=== PATIENT | male | born 1980 | race Caucasian/White ===

== ENCOUNTER 2017-07-23 16:33 | Observation (INO) | payer MEDICAID ==
[2017-07-23] MEDS ORDERED: MORPHINE SULFATE 2 MG/ML SYRINGE IV STA (16:41)
[2017-07-23] MEDS ORDERED: SODIUM CHLORIDE 0.9% 500 ML IV STA ×2 (16:41→18:15)
[2017-07-23] MEDS ORDERED: SODIUM CHLORIDE 0.9% 1,000 ML IV STA ×2 (16:41→18:15)
[2017-07-23 17:05] LABS: Basophils # (A) 0.1 k/uL (0-0.2); Basophils % (A) 1 %; CH 30.1; CHCM 33.1; Eosinophils # (A) 0.4 k/uL (0-0.7); Eosinophils % (A) 5 %; HCT 48.4 % (39.0-53.0); HDW 2.33; HGB 15.5 gm/dL (13.0-17.5); Luc # (Auto) 0.14; Luc % (Auto) 2; Lymphocytes # (A) 2.2 k/uL (1.0-4.8); Lymphocytes % (A) 28 %; MCH 29.3 pg (25.0-35.0); MCV 91.6 fL (80.0-100.0); Mean Platelet Volume 7.4; Monocytes # (A) 0.5 k/uL (0-1.0); Monocytes % (A) 6 %; Neutrophils # (A) 4.5 k/uL (1.3-7.7); Neutrophils % (A) 59 %; RBC 5.29 m/uL (4.30-5.90); RDW 14.8 % (11.5-15.5); WBC 7.7 k/uL (3.8-10.6); WBC (Perox) 7.71
[2017-07-23 17:20] LABS: Prothrombin Time 10.4 sec (9.0-12.0)
[2017-07-23 17:33] LABS: Creatine Kinase 184 U/L (55-170)
[2017-07-23 17:37] LABS: ALT 98 U/L (21-72); AST 56 U/L (17-59); Alkaline Phosphatase 86 U/L (38-126); Anion Gap 13 mmol/L; Blood Urea Nitrogen 22 mg/dL (9-20); Calcium 9.8 mg/dL (8.4-10.2); Carbon Dioxide 26 mmol/L (22-30); Chloride 99 mmol/L (98-107); Glucose 118 mg/dL (74-99); Magnesium 1.9 mg/dL (1.6-2.3); Non-African American GFR(MDRD) >60 (>60 ml/min/1.73 sqM); Potassium 3.2 mmol/L (3.5-5.1); Sodium 138 mmol/L (137-145); Total Bilirubin 0.5 mg/dL (0.2-1.3); Total Protein 7.8 g/dL (6.3-8.2)
--- NOTE | 2017-07-23 17:38 | XR ---
EXAMINATION TYPE: XR chest 2V DATE OF EXAM: 07/23/2017 COMPARISON: NONE HISTORY: Chest pain TECHNIQUE: Frontal and lateral views of the chest are obtained. FINDINGS: There are low lung volumes accentuate the pulmonary vasculature. There is obscuration of t he left hemidiaphragm due to overlying copious soft tissues on the frontal image as there is no retro cardiac opacity or pleural effusion on the lateral image. Bibasilar subsegmental atelectasis is seen. Cardiac silhouette is mildly enlarged. IMPRESSION: Bibasilar subsegmental at atelectasis. No acute cardiopulmonary process.
[2017-07-23 17:46] LABS: Creatine Kinase MB 1.5 ng/mL (0.0-2.4); Troponin I <0.012 ng/mL (0.000-0.034)
--- NOTE | 2017-07-23 17:53 | ED ---
General Adult HPI - General Chief complaint: Chest Pain Stated complaint: Chest Pain Time Seen by Provider: 07/23/17 16:39 Source: patient, RN notes reviewed, old records reviewed Mode of arrival: wheelchair Limitations: no limitations - History of Present Illness Initial comments: This is a 36-year-old nausea from chest pain. Severe anterior chest pain left- sided chest pain sharp. Difficulty taking a big deep breath worst pain with inspiration. Mild nausea no vomiting no fevers or travel history. Patient has history of high blood pressure, no prior history of heart disease. Patient does have elevated heart rate at baseline. No modifying factors for pain - Related Data Home Medications Medication Instructions Recorded Confirmed Fexofenadine/Pseudoephedrine 1 tab PO DAILY 07/23/17 07/23/17 [Carol-D 24 Hour Tablet] HYDROcodone/APAP 7.5-325MG [[place] 1 - 2 tab PO Q4H PRN 07/23/17 07/23/17 7.5-325] Hydrochlorothiazide 25 mg PO QAM 07/23/17 07/23/17 Losartan [Cozaar] 50 mg PO DAILY 07/23/17 07/23/17 Metoprolol Tartrate [Lopressor] 25 mg PO BID 07/23/17 07/23/17 Allergies Allergy/AdvReac Type Severity Reaction Status Date / Time aspirin Allergy Rapid Verified 07/23/17 16:52 Heart Rate ibuprofen [From Motrin] Allergy Anaphylaxis Verified 07/23/17 16:52 Review of Systems ROS Statement: Those systems with pertinent positive or pertinent negative responses have been documented in the HPI. ROS Other: All systems not noted in ROS Statement are negative. Past Medical History Past Medical History: GERD/Reflux Additional Past Medical History / Comment(s): Currently taking prednisone, last dose will be on 06-04-16. History of Any Multi-Drug Resistant Organisms: None Reported Additional Past Surgical History / Comment(s): EGD, wisdom teeth removed. Additional Past Anesthesia/Blood Transfusion Reaction / Comment(s): c/o dizziness when waking up. Past Psychological History: No Psychological Hx Reported Smoking Status: Former smoker Past Alcohol Use History: Occasional Past Drug Use History: None Reported - Past Family History Mother Family Medical History: No Reported History Father Family Medical History: Coronary Artery Disease (CAD) General Exam Limitations: no limitations General appearance: alert, in no apparent distress Head exam: Present: atraumatic, normocephalic, normal inspection Eye exam: Present: normal appearance, PERRL, EOMI. Absent: scleral icterus, conjunctival injection, periorbital swelling ENT exam: Present: normal exam, mucous membranes moist Neck exam: Present: normal inspection. Absent: tenderness, meningismus, lymphadenopathy Respiratory exam: Present: normal lung sounds bilaterally. Absent: respiratory distress, wheezes, rales, rhonchi, stridor Cardiovascular Exam: Present: normal rhythm, tachycardia, normal heart sounds. Absent: systolic murmur, diastolic murmur, rubs, gallop, clicks GI/Abdominal exam: Present: soft, normal bowel sounds. Absent: distended, tenderness, guarding, rebound, rigid Extremities exam: Present: normal inspection, full ROM, normal capillary refill. Absent: tenderness, pedal edema, joint swelling, calf tenderness Back exam: Present: normal inspection Neurological exam: Present: alert, oriented X3, CN II-XII intact Psychiatric exam: Present: normal affect, normal mood Skin exam: Present: warm, dry, intact, normal color. Absent: rash Course Vital Signs 07/23/17 07/23/17 16:35 18:30 Temperature 98 F Pulse Rate 111 H 98 Respiratory 20 18 Rate Blood Pressure 120/87 115/91 O2 Sat by Pulse 98 97 Oximetry - Reevaluation(s) Reevaluation #1: 07/23/17 19:33 Patient is chest pain at this point is controlled EKG Findings - EKG Comments: EKG Findings:: EKG shows sinus tachycardia rate 110, NM 140, QRS 104, QTc 460 Medical Decision Making - Medical Decision Making 36 male to the ER for evaluation of chest pain. Patient having continued severe chest pain tachycardia. Patient has history of high blood pressure across to. Patient be admitted for cardiac observation - Lab Data Result diagrams: 07/23/17 16:53 07/23/17 16:53 Lab Results 07/23/17 07/23/17 07/23/17 Range/Units 16:53 16:53 16:53 WBC 7.7 (3.8-10.6) k/uL RBC 5.29 (4.30-5.90) m/uL Hgb 15.5 (13.0-17.5) gm/dL Hct 48.4 (39.0-53.0) % MCV 91.6 (80.0-100.0) fL MCH 29.3 (25.0-35.0) pg MCHC 32.0 (31.0-37.0) g/dL RDW 14.8 (11.5-15.5) % Plt Count 262 (150-450) k/uL Neutrophils % 59 % Lymphocytes % 28 % Monocytes % 6 % Eosinophils % 5 % Basophils % 1 % Neutrophils # 4.5 (1.3-7.7) k/uL Lymphocytes # 2.2 (1.0-4.8) k/uL Monocytes # 0.5 (0-1.0) k/uL Eosinophils # 0.4 (0-0.7) k/uL Basophils # 0.1 (0-0.2) k/uL PT (9.0-12.0) sec INR (<1.2) APTT (22.0-30.0) sec D-Dimer (<0.60) mg/L FEU Sodium 138 (137-145) mmol/L Potassium 3.2 L (3.5-5.1) mmol/L Chloride 99 (98-107) mmol/L Carbon Dioxide 26 (22-30) mmol/L Anion Gap 13 mmol/L BUN 22 H (9-20) mg/dL Creatinine 1.30 H (0.66-1.25) mg/dL Est GFR (MDRD) Af Amer >60 (>60 ml/min/1.73 sqM) Est GFR (MDRD) Non-Af >60 (>60 ml/min/1.73 sqM) Glucose 118 H (74-99) mg/dL Calcium 9.8 (8.4-10.2) mg/dL Magnesium 1.9 (1.6-2.3) mg/dL Total Bilirubin 0.5 (0.2-1.3) mg/dL AST 56 (17-59) U/L ALT 98 H (21-72) U/L Alkaline Phosphatase 86 (38-126) U/L Total Creatine Kinase 184 H (55-170) U/L CK-MB (CK-2) 1.5 (0.0-2.4) ng/mL CK-MB (CK-2) Rel Index 0.8 Troponin I <0.012 (0.000-0.034) ng/mL Total Protein 7.8 (6.3-8.2) g/dL Albumin 4.4 (3.5-5.0) g/dL Lipase 292 (23-300) U/L 07/23/17 Range/Units 16:53 WBC (3.8-10.6) k/uL RBC (4.30-5.90) m/uL Hgb (13.0-17.5) gm/dL Hct (39.0-53.0) % MCV (80.0-100.0) fL MCH (25.0-35.0) pg MCHC (31.0-37.0) g/dL RDW (11.5-15.5) % Plt Count (150-450) k/uL Neutrophils % % Lymphocytes % % Monocytes % % Eosinophils % % Basophils % % Neutrophils # (1.3-7.7) k/uL Lymphocytes # (1.0-4.8) k/uL Monocytes # (0-1.0) k/uL Eosinophils # (0-0.7) k/uL Basophils # (0-0.2) k/uL PT 10.4 (9.0-12.0) sec INR 1.0 (<1.2) APTT 23.0 (22.0-30.0) sec D-Dimer 0.85 H (<0.60) mg/L FEU Sodium (137-145) mmol/L Potassium (3.5-5.1) mmol/L Chloride (98-107) mmol/L Carbon Dioxide (22-30) mmol/L Anion Gap mmol/L BUN (9-20) mg/dL Creatinine (0.66-1.25) mg/dL Est GFR (MDRD) Af Amer (>60 ml/min/1.73 sqM) Est GFR (MDRD) Non-Af (>60 ml/min/1.73 sqM) Glucose (74-99) mg/dL Calcium (8.4-10.2) mg/dL Magnesium (1.6-2.3) mg/dL Total Bilirubin (0.2-1.3) mg/dL AST (17-59) U/L ALT (21-72) U/L Alkaline Phosphatase (38-126) U/L Total Creatine Kinase (55-170) U/L CK-MB (CK-2) (0.0-2.4) ng/mL CK-MB (CK-2) Rel Index Troponin I (0.000-0.034) ng/mL Total Protein (6.3-8.2) g/dL Albumin (3.5-5.0) g/dL Lipase (23-300) U/L - Radiology Data Radiology results: report reviewed (Chest x-ray and CT chest are negative for acute disease), image reviewed Critical Care Time Critical Care Time: Yes Total Critical Care Time: 31 Disposition Clinical Impression: Chest pain Disposition: ADMITTED IP TO THIS HOSP Condition: Undetermined Instructions: Chest Pain (ED) Referrals: Syd Shah DO [Primary Care Provider] - 1-2 days
[2017-07-23] MEDS ORDERED: RX INFO: IV CONTRAST WAS GIVEN 1 EACH MISC MISCELLANE PRN (18:15)
--- NOTE | 2017-07-23 19:12 | CT ---
EXAMINATION TYPE: CT angio chest DATE OF EXAM: 07/23/2017 COMPARISON: NONE HISTORY: Chest pain today CT DLP: 648 mGycm. Automated Exposure Control for Dose Reduction was Utilized. CONTRAST: CTA scan of the thorax is performed with IV Contrast, patient injected with 100 mL of Omnipaque 350, pulmonary embolism protocol. MIP Images are created on CT scanner and reviewed. FINDINGS: LUNGS: The lungs are grossly clear, there is no concerning parenchymal mass or nodule identified. Non calcified superior segment left upper lobe pulmonary nodule measures 6 mm. Right upper lobe pulmonary nodule measures 4 mm on image 64 of lung windows axial images. Groundglass opacity within the left l ower lobe is seen on image 86. This measures 5 mm. There is no pleural effusion or pneumothorax see n. The tracheobronchial tree is patent. Minimal subsegmental dependent bibasilar atelectasis is note d. MEDIASTINUM: There is satisfactory enhancement of the pulmonary artery and its branches, there is no CT evidence for pulmonary embolism. There are no greater than 1 cm hilar or mediastinal lymph nodes. No cardiomegaly or pericardial effusion is seen. OTHER: There is diffuse decreased attenuation of the hepatic parenchyma with sparing around the gallb ladder fossa most compatible with hepatic steatosis. This appears at least mild in degree. IMPRESSION 1. No evidence of pulmonary embolus. 2. Findings most compatible with moderate hepatic steatosis. 3. Bilateral subcentimeter pulmonary nodules for which follow-up CT is recommended in 6-12 months to evaluate for interval growth.
[2017-07-23] MEDS ORDERED: NITROGLYCERIN SL TABS 0.4 MG TAB SUBLINGUAL PRN (19:30)
[2017-07-23] MEDS ORDERED: HEPARIN SODIUM,PORCINE/D5W PMX 25,000 UNIT in DEXTROSE/WATER 1 500ML.BAG IV SCH (19:30)
[2017-07-23] MEDS ORDERED: MORPHINE SULFATE 4 MG/ML SYRINGE IV PRN (19:30)
[2017-07-23] MEDS ORDERED: ASPIRIN 81 MG PO STA (19:30)
[2017-07-23] MEDS ORDERED: HEPARIN SODIUM,PORCINE 5,000 UNIT/ML 1 ML VIAL IV PRN (19:30)
[2017-07-23] MEDS ORDERED: HEPARIN SODIUM,PORCINE 5,000 UNIT/ML 1 ML VIAL IV ONE (19:30)
[2017-07-23] MEDS ORDERED: MORPHINE SULFATE 10 MG/ML SYRINGE ONE (22:13)
[2017-07-23 23:03] LABS: Creatine Kinase 167 U/L (55-170)
[2017-07-23 23:15] LABS: Creatine Kinase MB 1.2 ng/mL (0.0-2.4); Troponin I <0.012 ng/mL (0.000-0.034)
[2017-07-23] MEDS: METOPROLOL TARTRATE 50 MG TAB PO SCH (23:34)
[2017-07-24] MEDS ORDERED: HYDROcodone/APAP 7.5-325MG 1 EACH TAB PO PRN ×2 (00:06→06:58)
[2017-07-24 04:09] VITALS: RESP 18
[2017-07-24] MEDS ORDERED: MORPHINE SULFATE 10 MG/ML SYRINGE ONE (05:34)
[2017-07-24 05:52] LABS: Mean Platelet Volume 7.7
[2017-07-24 05:53] LABS: Appearance,Urine Clear (Clear); Bilirubin,Urine Negative (Negative); Glucose,Urine (UA) Negative (Negative); Ketones,Urine Negative (Negative); Leukocyte Esterase,Urine Negative (Negative); Mucus,Urine Occasional /hpf; Nitrite,Urine Negative (Negative); PH, Urine 5.5 (5.0-8.0); Particle Count 4753; Protein,Urine Negative (Negative); RBC,Urine 1 /hpf (0-5); Specific Gravity,Urine 1.032 (1.001-1.035); Squamous Epithelial Cell,Urine <1 /hpf (0-4); UA Billing (MACRO vs. MICRO) MICRO; Urobilinogen,Urine <2.0 mg/dL (<2.0); WBC,Urine <1 /hpf (0-5)
[2017-07-24 06:21] LABS: Cholesterol 197 mg/dL (<200); Creatine Kinase 167 U/L (55-170); HDL Cholesterol 33 mg/dL (40-60)
[2017-07-24 06:33] LABS: Creatine Kinase MB 1.4 ng/mL (0.0-2.4); Troponin I <0.012 ng/mL (0.000-0.034)
--- NOTE | 2017-07-24 06:47 | HP ---
HISTORY AND PHYSICAL DATE OF ADMISSION: 07/23/2017. CHIEF COMPLAINTS: Chest pain. HISTORY OF PRESENT ILLNESS: This 36-year-old gentleman with past medical history of multiple medical issues including GERD, hypertension, hyperlipidemia being followed by Dr. Shah was complaining of left-sided chest pain. The pain is sharp in character with difficulty in breathing and the pain is increasing without much radiation and the patient came to [facility] and admitted for further evaluation and treatment. The patient also complaining of multiple other symptomatology at this time including some rhonchi. Otherwise there is no history of fever, rigors or chills. No history of headache, loss of consciousness or seizures at this time. Patient has significant family history of coronary artery disease. PAST MEDICAL HISTORY: History of hypertension, hyperlipidemia, GERD, seasonal allergies. MEDICATIONS PRIOR TO ADMISSION: Include home medications are: 1. Metoprolol 25 mg p.o. b.i.d. 2. Cozaar 50 mg daily. 3. Hydrochlorothiazide 25 mg. 4. [place] 7.5 mg q.4h p.r.n. 5. Carol-D 1 p.o. daily. ALLERGIES: ASPIRIN AND IBUPROFEN. FAMILY HISTORY: No history of heart disease or strokes in the family. SOCIAL HISTORY: Previous history of smoker. Occasional alcohol intake. REVIEW OF SYSTEMS: ENT: No diminished vision. No diminished hearing. Cardiovascular System: As mentioned earlier. Respiratory: As mentioned earlier. GI no nausea. no dysuria. Central nervous system: No numbness or weakness. ALLERGY/IMMUNOLOGY: No asthma or hayfever. Musculoskeletal: As mentioned earlier. Hematology/Oncology: No history of anemia. Endocrine please note no history of diabetes or hypothyroidism. CONSTITUTIONAL: As mentioned earlier. Dermatology: Negative. Rheumatology:Negative. Psychiatric: As mentioned earlier. PHYSICAL EXAMINATION: On exam alert and oriented x3. Pulse 99, blood pressure 104/66, respirations 16, temperature is 97.9, pulse ox 92% on room air. HEENT: Conjunctivae normal. Oral mucosa moist. Neck is no jugular venous distention. No thyroid enlargement. No carotid bruit. No lymph node enlargement. CARDIOVASCULAR: S1, S2 muffled. Respiratory: Breath sounds diminished in the bases. A few scattered rhonchi and expiratory wheezing. No crackles. ABDOMEN: Soft, nontender. No mass palpable. Legs no edema, no swelling. Nervous system: Higher functions as mentioned earlier. Moves all 4 limbs. No focal motor or sensory deficits. Lymphatics: No lymph nodes palpable in the neck, axillae or groin. Skin no ulcer, rash, bleeding. LABORATORY DATA: CBC within normal limits. D-dimer 0.38, potassium 3. Creatinine is 1.30. Otherwise the patient also had a chest x-ray, which showed bibasilar atelectasis and a EKG which showed ST-T changes and a chest CTA showed hepatic steatosis, subcentimeter pulmonary nodules. ASSESSMENT: 1. Chest pain possible unstable angina possibly musculoskeletal. 2. Bibasilar atelectasis, possible bronchitis. 3. Bilateral subcentimeter pulmonary nodules in the CT scan with needed followup. 4. Gastroesophageal reflux disease. 5. Hypertension. 6. Hyperlipidemia. RECOMMENDATIONS AND DISCUSSION: This is a 36-year-old gentleman who presented with multiple complex medical issues. We will monitor the patient closely. Unstable angina protocol. Pain medications. Cardiology consultation. Otherwise further workup including possible stress test. The home medication may be continued and prognosis guarded because of multiple complex medical issues. Discussed with the patient. Understands and agrees and further recommendations to follow. I would also recommend detailed UA exam also. See orders for further details. MMODL / IJN: [id number] /
[2017-07-24] MEDS: SODIUM CHLORIDE 0.9% 1,000 ML IV SCH ×2 (08:21→15:53)
[2017-07-24] MEDS ORDERED: LORATADINE-PSEUDOEPH 5-120 MG 1 EACH TAB.ER.12H PO SCH (09:00)
[2017-07-24] MEDS ORDERED: ATORVASTATIN 80 MG TAB PO SCH (09:00)
[2017-07-24] MEDS ORDERED: LOSARTAN 50 MG TAB PO SCH (09:00)
[2017-07-24] MEDS ORDERED: HYDROCHLOROTHIAZIDE 25 MG TAB PO SCH (09:00)
[2017-07-24] MEDS ORDERED: ASPIRIN 325 MG TAB PO SCH (09:00)
[2017-07-24] MEDS ORDERED: Potassium Replacement Protocol 1 EACH MISC MISCELLANE PRN (09:01)
[2017-07-24] MEDS: POTASSIUM CHLORIDE ER 20 MEQ TAB.ER PO SCH ×2 (09:54→11:21)
[2017-07-24 11:37] VITALS: BMI 32.3
--- NOTE | 2017-07-24 11:57 | ECHOS ---
Referral Reason:chest pain MEASUREMENTS -------- HEIGHT: 188.0 cm WEIGHT: 114.3 kg BP: 130/98 WallScoring: string WallScoring: string WallScoring: string FINDINGS -------- Utilizing the standard [place] protocol the patient was exercised for 6 minutes , 0 seconds, achieving a maximum heart rate of 169 , which is 90 % of predicted maximal heart rate. There was physiologic heart rate and blood pressure response to exercise. Max Heart Rate: 169 % of Max Predicted Heart Rate: 90% Rest Heart Rate: 95 Rest BP: 130/98 Max BP: 177/83 Mets Achieved: 7.3 The test was stopped because of fatigue. The test was stopped because the target heart rate was achieved. This level of exercise represents a limited exercise tolerance for age. Sinus rhythm. In response to stress, the ECG showed no ST-T wave changes . In response to stress, the ECG showed no ST-T wave changes . There were normal blood pressure and heart rate responses to stress. LV size, wall thickness and systolic function are normal, with an EF of 60%. Echo images were acquired at peak stress which demonstrated appropriate augmentation of all left ventricular segments with slight decrease in cavity size. CONCLUSIONS -------- 1. Utilizing the standard [place] protocol the patient was exercised for 6 minutes, 0 seconds, achieving a maximum heart rate of 169 , which is 90 % of predicted maximal heart rate. There was physiologic heart rate and blood pressure response to exercise. 2. This level of exercise represents a limited exercise tolerance for age. 3. In response to stress, the ECG showed no ST-T wave changes . 4. No 2D echocardiographic evidence of inducible ischemia to achieved workload. [id number] DEVELOPER: Pramod Lee RDCS MTDD
[2017-07-24 11:59] VITALS: BP 147/73; PULSE 105; TEMP 98.8
[2017-07-24] MEDS: METOPROLOL TARTRATE 50 MG TAB PO SCH (12:36)
--- NOTE | 2017-07-24 12:43 | P.CRDCN ---
History of Present Illness Consult date: 07/24/17 History of present illness: This is a 36-year-old male past medical history significant for hypertension, dyslipidemia, gastroesophageal reflux disease and tachycardia. He follows with Dr. Waller in the office. He presents to the hospital with complaints of stabbing/squeezing chest pain that started yesterday while he was sitting on the couch watching a movie. He states this came on all of a sudden with no specific aggravating factor. It was associated with difficulty in taking a deep breath. States the pain persisted until he presented to the emergency department and received pain medication. Has been receiving IV morphine since admission. This decreases his pain from a 10-4 which is tolerable. He states the pain is ongoing with no alleviating factors other than pain medication. He denies palpitations, dizziness, diaphoresis or vomiting. He states he has never experienced a feeling like this in the past. Most recent echocardiogram performed in August 2016 reveals preserved LV function with EF 55-60% with mild mitral regurgitation and mild tricuspid regurgitation. He has never undergone any stress testing and denies history of coronary artery disease. EKG reveals sinus mechanism with no acute ST or T-wave abnormalities. Chest x-ray bibasilar subsegmental atelectasis with no acute cardiopulmonary process. CTA of the chest no evidence of PE, findings compatible with moderate hepatic steatosis. Bilateral pulmonary nodules. Cardiac enzymes negative 3, potassium 3.2, magnesium 1.9, BUN 22, creatinine 1.3, d-dimer 0.85, LDL 109, HDL 33, triglycerides 274, total cholesterol 197. Current cardiac medications include hydrochlorothiazide 25 mg daily, losartan 50 mg daily and Toprol 25 mg twice a day. He states he is compliant with his medications. Review of Systems CONSTITUTIONAL: Denies fever. Complains of chills. EYES: Denies blurred vision. Denies vision changes. Denies eye pain. EARS, NOSE, MOUTH & THROAT: Denies headache. Denies sore throat. Denies ear pain. CARDIOVASCULAR: Complains of stabbing/squeezing chest pain with shortness of breath. Denies orthopnea. Denies PND. Denies palpitations. RESPIRATORY: Denies cough. GASTROINTESTINAL: Denies abdominal pain. Denies diarrhea. Denies constipation. Denies nausea. Denies vomitng. MUSCULOSKELETAL: Denies myalgias. INTEGUMENTARY: Denies pruitis. Denies rash. NEUROLOGIC: Denies numbness. Denies tingling. Denies weakness. PSYCHIATRIC: Denies anxiety. Denies depression. ENDOCRINE: Denies fatigue. Denies weight change. Denies polydipsia. Denies polyurina. GENITOURINARY: Denies burning, hematuria or urgency with micturation. HEMATOLOGIC: Denies history of anemia. Denies bleeding. 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 History of Any Multi-Drug Resistant Organisms: None Reported Additional Past Surgical History / Comment(s): EGD, wisdom teeth removed.TUBES IN EARS CHILD, NASAL POLYPS REMOVED Past Anesthesia/Blood Transfusion Reactions: No Reported Reaction Additional Past Anesthesia/Blood Transfusion Reaction / Comment(s): c/o dizziness when waking up. Smoking Status: Former smoker - Past Family History Mother Family Medical History: No Reported History Father Family Medical History: Coronary Artery Disease (CAD), Diabetes Mellitus, Myocardial Infarction ([place]), Skin Disorder Medications and Allergies Home Medications Medication Instructions Recorded Confirmed Type Fexofenadine/Pseudoephedrine 1 tab PO DAILY 07/23/17 07/23/17 History [Carol-D 24 Hour Tablet] HYDROcodone/APAP 7.5-325MG [[place] 1 - 2 tab PO Q4H PRN 07/23/17 07/23/17 History 7.5-325] Hydrochlorothiazide 25 mg PO QAM 07/23/17 07/23/17 History Losartan [Cozaar] 50 mg PO DAILY 07/23/17 07/23/17 History Metoprolol Tartrate [Lopressor] 25 mg PO BID 07/23/17 07/23/17 History Allergies Allergy/AdvReac Type Severity Reaction Status Date / Time aspirin Allergy Rapid Verified 07/23/17 16:52 Heart Rate ibuprofen [From Motrin] Allergy Anaphylaxis Verified 07/23/17 16:52 Physical Exam Vitals: Vital Signs Temp Pulse Pulse Resp BP BP Pulse Ox 07/24/17 07:59 98 F 82 18 137/79 94 L 07/24/17 04:00 97.7 F 78 18 106/58 96 07/24/17 01:03 16 07/24/17 00:02 97.9 F 99 16 104/66 92 L 07/23/17 21:00 16 07/23/17 20:17 98.0 F 92 18 119/83 96 07/23/17 19:54 98.2 F 84 16 128/76 100 07/23/17 18:30 98 18 115/91 97 07/23/17 16:35 98 F 111 H 20 120/87 98 Intake and Output 07/23/17 07/24/17 07/24/17 22:59 06:59 14:59 Intake Total 175 Balance 175 Intake: Intake, IV Titration 175 Amount Heparin Sodium,Porcine/ 175 D5w Pmx 25,000 unit In Dextrose/Water 1 500ml. bag @ 8.8 UNITS/KG/HR 20. 11 mls/hr IV .Q24H [facility] Rx #:[id number] Other: # Voids 1 Weight 114.305 kg GENERAL: This is a 36-year-old male in no apparent distress at the time of my examination. Obese. HEENT: Head is atraumatic, normocephalic. Pupils are equal, round. Sclerae anicteric. Conjunctivae are clear. Mucous membranes of the mouth are moist. Neck is supple. There is no jugular venous distention. No carotid bruit is heard. LUNGS: Expiratory wheeze bilateral right greater than left, no rales or rhonchi. No chest wall tenderness is noted on palpation or with deep breathing. HEART: Regular rate and rhythm without murmurs, rubs or gallops. S1 and S2 heard. ABDOMEN: Soft, nontender. Bowel sounds are heard. No organomegaly noted. EXTREMITIES: 2+ peripheral pulses with no evidence of peripheral edema and no calf tenderness noted. NEUROLOGIC: Patient is awake, alert and oriented x3. Results 07/24/17 05:20 07/24/17 11:32 Cardiac Enzymes 07/23/17 07/23/17 07/23/17 Range/Units 16:53 16:53 22:35 AST 56 (17-59) U/L CK-MB (CK-2) 1.5 1.2 (0.0-2.4) ng/mL Troponin I <0.012 <0.012 (0.000-0.034) ng/mL 07/24/17 Range/Units 05:20 AST (17-59) U/L CK-MB (CK-2) 1.4 (0.0-2.4) ng/mL Troponin I <0.012 (0.000-0.034) ng/mL Coagulation 07/23/17 07/24/17 Range/Units 16:53 02:10 PT 10.4 (9.0-12.0) sec APTT 23.0 27.8 (22.0-30.0) sec Lipids 07/24/17 Range/Units 05:20 Triglycerides 274 H (<150) mg/dL Cholesterol 197 (<200) mg/dL HDL Cholesterol 33 L (40-60) mg/dL CBC 07/23/17 07/24/17 Range/Units 16:53 05:20 WBC 7.7 (3.8-10.6) k/uL RBC 5.29 (4.30-5.90) m/uL Hgb 15.5 (13.0-17.5) gm/dL Hct 48.4 (39.0-53.0) % Plt Count 262 222 (150-450) k/uL Comprehensive Metabolic Panel 07/23/17 Range/Units 16:53 Sodium 138 (137-145) mmol/L Potassium 3.2 L (3.5-5.1) mmol/L Chloride 99 (98-107) mmol/L Carbon Dioxide 26 (22-30) mmol/L BUN 22 H (9-20) mg/dL Creatinine 1.30 H (0.66-1.25) mg/dL Glucose 118 H (74-99) mg/dL Calcium 9.8 (8.4-10.2) mg/dL AST 56 (17-59) U/L ALT 98 H (21-72) U/L Alkaline Phosphatase 86 (38-126) U/L Total Protein 7.8 (6.3-8.2) g/dL Albumin 4.4 (3.5-5.0) g/dL Current Medications Generic Name Dose Route Start Last Admin Trade Name Freq PRN Reason Stop Dose Admin Hydrocodone Bitart/Acetaminophen 1 each 07/24/17 00:06 [place] 7.5-325 PO Q4H PRN Moderate Pain Hydrocodone Bitart/Acetaminophen 2 each 07/24/17 06:58 [place] 7.5-325 PO Q4H PRN Severe Pain Atorvastatin Calcium 80 mg 07/24/17 09:00 Lipitor PO DAILY [facility] Heparin Sodium (Porcine) 0 unit 07/23/17 19:30 07/24/17 04:30 Heparin IV 4,000 unit Q6HR PRN Administration Low PTT Protocol Hydrochlorothiazide 25 mg 07/24/17 09:00 Hydrodiuril PO QAM [facility] Heparin Sodium/Dextrose 25,000 500 mls @ 20.11 mls/hr 07/23/17 19:30 04:29 unit/ IV Solution IV 11.76 units/kg/hr .Q24H [facility] 26.9 mls/hr Protocol Titration 8.8 UNITS/KG/HR Sodium Chloride 1,000 mls @ 100 mls/hr 07/23/17 19:30 07/24/17 08:21 Saline 0.9% IV Not Given .Q10H [facility] Loratadine/Pseudoephedrine Sulfate 1 each 07/24/17 09:00 Claritin-D 12 Hr PO BID [facility] Losartan Potassium 50 mg 07/24/17 09:00 Cozaar PO DAILY [facility] Metoprolol Tartrate 50 mg 07/23/17 21:00 07/23/17 23:34 Lopressor PO 50 mg BID [facility]UANA Administration Miscellaneous Information 1 each 07/23/17 18:15 07/23/17 19:28 Rx Info: Iv Contrast Was Given MISCELLANE 07/25/17 18:15 1 each DAILY PRN Administration Per Protocol Morphine Sulfate 4 mg 07/23/17 19:30 07/23/17 22:14 Morphine Sulfate (Inj) IV 4 mg Q5M PRN Administration Chest Pain Nitroglycerin 0.4 mg 07/23/17 19:30 Nitrostat SUBLINGUAL Q5M PRN Chest Pain Intake and Output 07/23/17 07/24/17 07/24/17 22:59 06:59 14:59 Intake Total 175 Balance 175 Intake: Intake, IV Titration 175 Amount Heparin Sodium,Porcine/ 175 D5w Pmx 25,000 unit In Dextrose/Water 1 500ml. bag @ 8.8 UNITS/KG/HR 20. 11 mls/hr IV .Q24H [facility] Rx #:[id number] Other: # Voids 1 Weight 114.305 kg 07/24/17 05:20 07/23/17 16:53 Assessment and Plan Assessment: ASSESSMENT 1. Chest pain, atypical 2. Hypertension 3. Dyslipidemia PLAN Proceed with stress echocardiogram for evaluation of chest pain. Lifestyle modifications were discussed for decreasing cholesterol. If this is normal he can be cleared from a cardiac standpoint. He should follow-up with Dr. WILMAN Waller in the office in 2 weeks. Nurse Practitioner note has been reviewed, I agree with a documented findings and plan of care. Patient was seen and examined.
--- NOTE | 2017-07-25 18:58 | P.DS ---
Providers Date of admission: 07/23/17 19:30 Attending physician: Gaston Payton Consults: 07/23/17 19:30 Consult Physician Urgent Consulting Provider: León Cortez Consult Reason/Comments: cp Do you want consulting provider notified?: Yes Primary care physician: Syd Shah DO Hospital Course: Is 36-year-old gentleman with a past medical history multiple medical problems was admitted chest pain. Cardiology saw the patient. Myocardial infarction was ruled out. Stress echo was negative. Patient be discharged in a stable condition with guarded prognosis after clearance and cardiology. On exam vitals stable. Cardio S1 and S2 normal. Abdomen soft nontender. Respirator system. Clear to auscultation. He also recommended the patient to follow-up with closely with the primary physician regarding the abdominal CAT scan as well as cardiology regarding follow-up. Final diagnosis 1. Chest pain possibly muscle skeletal. With a negative stress echo. 2. Diabetes atelectasis with a possible bronchitis. 3. Bilateral subcentimeter pulmonary nodules and had needed follow-up in the preceding. 4. GERD. 5. Hypertension. 6. Hyperlipidemia. Patient Condition at Discharge: Undetermined Plan - Discharge Summary Discharge Rx Participant: No New Discharge Prescriptions: New Metoprolol Tartrate [Lopressor] 50 mg PO BID #60 tab Continue Losartan [Cozaar] 50 mg PO DAILY Hydrochlorothiazide 25 mg PO QAM HYDROcodone/APAP 7.5-325MG [[place] 7.5-325] 1 - 2 tab PO Q4H PRN PRN Reason: Pain Fexofenadine/Pseudoephedrine [Carol-D 24 Hour Tablet] 1 tab PO DAILY Discontinued Metoprolol Tartrate [Lopressor] 25 mg PO BID Discharge Medication List Fexofenadine/Pseudoephedrine [Carol-D 24 Hour Tablet] 1 tab PO DAILY 07/23/17 [History] HYDROcodone/APAP 7.5-325MG [[place] 7.5-325] 1 - 2 tab PO Q4H PRN 07/23/17 [ History] Hydrochlorothiazide 25 mg PO QAM 07/23/17 [History] Losartan [Cozaar] 50 mg PO DAILY 07/23/17 [History] Metoprolol Tartrate [Lopressor] 50 mg PO BID #60 tab 07/24/17 [Rx] Follow up Appointment(s)/Referral(s): Joaquina Waller MD [STAFF PHYSICIAN] - 2 Weeks (Office will call patient with appointment date and time) Syd Shah DO [Primary Care Provider] - 3 Days Ambulatory/Diagnostic Orders: Complete Blood Count w/diff [LAB.AMB] Time Frame: 3 Days, Location: Determined By Patient Patient Instructions/Handouts: Chest Pain (ED) Activity/Diet/Wound Care/Special Instructions: Pending cardiology final DC recommendations and clearance. Diet: Cardiac, low cholesterol Activity: Limited until follow-up Discharge Disposition: HOME SELF-CARE
== END 2017-07-24 15:52 | disposition home or self-care (01) ==
LOC: EC 16:33 → 3OBS 19:30
PROVIDERS: ADMIT Hospitalist; ATTEND Hospitalist
DX: R07.89 Other chest pain (principal); J98.11 Atelectasis; R00.0 Tachycardia, unspecified; R11.0 Nausea; R91.8 Other nonspecific abnormal finding of lung field; K21.9 Gastro-esophageal reflux disease without esophagitis; I10 Essential (primary) hypertension; E78.5 Hyperlipidemia, unspecified; J30.2 Other seasonal allergic rhinitis; Z88.6 Allergy status to analgesic agent; Z87.891 Personal history of nicotine dependence; Z79.899 Other long term (current) drug therapy; Z82.49 Family history of ischemic heart disease and other diseases of the circulatory system; Z83.3 Family history of diabetes mellitus
CPT/HCPCS: 99291; 96365 ×2; 96375 ×2; 96376 ×4; 96361 ×4; 96366 ×2; 36415; 93005; 93017; 93350; 85379; 80061; 80053; 82550 ×2; 82553 ×2; 83690; 83735; 84132; 84484 ×2; 85025; 85049; 85610; 85730 ×2; 81001; 80306; 71020; 71275; G0378 ×2; J2270 ×3; J1644 ×3; Q9967

== ENCOUNTER 2018-04-01 13:07 | Emergency (ER) | payer MEDICAID ==
[2018-04-01 13:18] VITALS: BP 144/95; PULSE 98; RESP 18; TEMP 96.8
--- NOTE | 2018-04-01 14:45 | ED ---
ENT HPI - General Chief complaint: ENT Stated complaint: bilat ear pain Time Seen by Provider: 04/01/18 13:23 Source: patient Mode of arrival: ambulatory Limitations: no limitations - History of Present Illness Initial comments: This is a 37-year-old male with past medical history of hypertension, hyperlipidemia and GERD who presents today for chief complaint of bilateral ear pain 3 days. He states that for the past 2 days he has had congestion, sore throat and bilateral ear pain. He has been taking [place] 7.5 mg he had left over from an oral procedure in attempt to alleviate the pain which has helped minimally. Patient also admits to using his significant other's neomycin polymyxin drops to the external ear canal bilaterally because he thought it might help. When the pain did not subside today and the pain was increasing he presented to the emergency department. Pt denies hx of DM, recent inner ear infection or antibiotic use, pain of the mastoid bone, lesions or rashes of the overlying skin. He did admit to some b/l ear drainage. Pt presented to the emergency department with vital signs WNL. She does have ENT doctor, Dr Larry who he has seen in the past for adenoids removal. - Related Data Home Medications Medication Instructions Recorded Confirmed Fexofenadine/Pseudoephedrine 1 tab PO DAILY 07/23/17 07/23/17 [Carol-D 24 Hour Tablet] HYDROcodone/APAP 7.5-325MG [[place] 1 - 2 tab PO Q4H PRN 07/23/17 07/23/17 7.5-325] Hydrochlorothiazide 25 mg PO QAM 07/23/17 07/23/17 Losartan [Cozaar] 50 mg PO DAILY 07/23/17 07/23/17 Previous Rx's Medication Instructions Recorded Metoprolol Tartrate [Lopressor] 50 mg PO BID #60 tab 07/24/17 Allergies Allergy/AdvReac Type Severity Reaction Status Date / Time aspirin Allergy Rapid Verified 04/01/18 13:16 Heart Rate ibuprofen [From Motrin] Allergy Anaphylaxis Verified 04/01/18 13:16 Review of Systems ROS Statement: Those systems with pertinent positive or pertinent negative responses have been documented in the HPI. ROS Other: All systems not noted in ROS Statement are negative. Constitutional: Denies: chills Eyes: Denies: eye pain ENT: Reports: as per HPI, ear pain, throat pain Respiratory: Denies: cough, dyspnea Cardiovascular: Denies: chest pain, palpitations Endocrine: Denies: fatigue Gastrointestinal: Denies: abdominal pain, nausea, vomiting, diarrhea, constipation Genitourinary: Denies: urgency, dysuria, frequency Skin: Denies: rash, lesions Neurological: Denies: headache, confusion Past Medical History Past Medical History: GERD/Reflux, Hyperlipidemia, Hypertension Additional Past Medical History / Comment(s): SEASONAL ALLERGIES, "CYSTS", CONCUSSIONS History of Any Multi-Drug Resistant Organisms: None Reported Additional Past Surgical History / Comment(s): EGD, wisdom teeth removed.TUBES IN EARS CHILD, NASAL POLYPS REMOVED Past Anesthesia/Blood Transfusion Reactions: No Reported Reaction Additional Past Anesthesia/Blood Transfusion Reaction / Comment(s): c/o dizziness when waking up. Past Psychological History: No Psychological Hx Reported Smoking Status: Former smoker Past Alcohol Use History: Occasional Past Drug Use History: None Reported - Past Family History Mother Family Medical History: No Reported History Father Family Medical History: Coronary Artery Disease (CAD), Diabetes Mellitus, Myocardial Infarction ([place]), Skin Disorder General Exam - General Exam Comments Initial Comments: General: The patient is awake and alert, in no distress, and does not appear acutely ill. Eye: Pupils are equal, round and reactive to light, extra-ocular movements are intact. No nystagmus. There is normal conjunctiva bilaterally. No signs of icterus. Ears, nose, mouth and throat: There are moist mucous membranes and no oral lesions. Examination of the external ear reveals no erythema or deformities, no masses, erythema or tenderness over the mastoid process. Examination of the EAC of the ears b/l reveals erythema, edema and drainage. TM are unable to be visualized secondary to edema and pt moving from pain. There is pain with palpation of the tragus and pulling of the external auricle. Nares of not patent b/l. Oropharynx is mildly erythematous, mild post nasal drip. Mild pain to palpation over the maxillary sinuses. Neck: The neck is supple, there is no tenderness or JVD. Cardiovascular: There is a regular rate and rhythm. No murmur, rub or gallop is appreciated. Respiratory: Lungs are clear to auscultation, respirations are non-labored, breath sounds are equal. No wheezes, stridor, rales, or rhonchi. Musculoskeletal: Normal ROM, no tenderness. Strength 5/5. Sensation intact. Pulses equal bilaterally 2+. Neurological: A&O x 3. CN II-XII intact, There are no obvious motor or sensory deficits. Coordination appears grossly intact. Speech is normal. Skin: Skin is warm and dry and no rashes or lesions are noted. Psychiatric: Cooperative, appropriate mood & affect, normal judgment. . Limitations: no limitations Course Vital Signs 04/01/18 13:16 Temperature 96.8 F L Pulse Rate 98 Respiratory 18 Rate Blood Pressure 144/95 O2 Sat by Pulse 96 Oximetry Medical Decision Making - Medical Decision Making 37yo male past medical history of hypertension who presents today for chief complaint of bilateral ear pain for 3 days. His examination of the ears bilaterally reveals erythematous and edematous external auditory canals bilaterally however we are unable to visualize the tympanic membranes bilaterally due to edema and lack of patient compliance with examination. Due to lack of visualization of the tympanic membranes are retreat the patient for an acute otitis media as well as otitis externa. The case is discussed with Dr. Gutiérrez in detail who agrees the plan. He is to take Tylenol as needed for pain is discussed with both patient and partner who agree with plan. He is to follow up with primary care physician in one to 2 days. Patient was told to follow up with Dr. Carrillo if symptoms persist after treatment. Patient is to return to emergency department if symptoms worsen or change or develops fever and chills. Disposition Clinical Impression: Otitis externa of both ears, Otitis media of both ears, Viral URI Disposition: HOME SELF-CARE Condition: Good Instructions: Otitis Externa (ED), Otitis Media (ED) Additional Instructions: Please use medication as discussed. Please follow-up with family doctor in the next 2 days of symptoms have not improved. Please follow-up with your ENT specialist as discussed if symptoms persist. Please return to emergency room if the symptoms increase or worsen or for any other concerns. Is patient prescribed a controlled substance at d/c from ED?: No Referrals: Syd Shah DO [Primary Care Provider] - 1-2 days Time of Disposition: 15:00
== END 2018-04-01 15:10 | disposition home or self-care (01) ==
LOC: EC 13:07
DX: H60.93 Unspecified otitis externa, bilateral (principal); H66.93 Otitis media, unspecified, bilateral; J06.9 Acute upper respiratory infection, unspecified; I10 Essential (primary) hypertension; Z79.899 Other long term (current) drug therapy; Z87.891 Personal history of nicotine dependence; Z88.6 Allergy status to analgesic agent
CPT/HCPCS: 99282

== ENCOUNTER 2020-03-10 08:01 | Observation (INO) | payer MEDICAID, OTHER ==
[2020-03-10] MEDS ORDERED: SODIUM CHLORIDE 0.9% 2,000 ML IV ONE (08:27)
[2020-03-10] MEDS ORDERED: ONDANSETRON 4 MG/2 ML VIAL IVP STA (08:28)
[2020-03-10 08:57] LABS: Basophils % (A) 0 %; Eosinophils # (A) 0.1 k/uL (0-0.7); Eosinophils % (A) 1 %; HCT 47.1 % (39.0-53.0); Lymphocytes # (A) 2.5 k/uL (1.0-4.8); Lymphocytes % (A) 38 %; MCH 29.1 pg (25.0-35.0); MCHC 31.9 g/dL (31.0-37.0); MCV 91.2 fL (80.0-100.0); Mean Platelet Volume 8.3; Monocytes # (A) 0.4 k/uL (0-1.0); Monocytes % (A) 5 %; Neutrophils # (A) 3.6 k/uL (1.3-7.7); Neutrophils % (A) 54 %; Platelet Count 238 k/uL (150-450); RBC 5.16 m/uL (4.30-5.90); RDW 12.9 % (11.5-15.5); WBC 6.7 k/uL (3.8-10.6)
--- NOTE | 2020-03-10 09:05 | ED ---
Recheck HPI <Damion Gutiérrez - Last Filed: 03/10/20 09:13> - General Source: patient, RN notes reviewed Mode of arrival: ambulatory Limitations: no limitations <Harry Pearce - Last Filed: 03/10/20 12:00> - General Chief Complaint: Recheck/Abnormal Lab/Rx Stated Complaint: high blood sugar Time Seen by Provider: 03/10/20 08:15 - History of Present Illness Initial Comments: 39-year-old male presents emergency Department chief complaint of hyperglycemia, increased thirst and increased urination. Patient states that she said his coworker that he did not look well couple days ago checked his blood sugar that was 560, check gestures for 80 and again in the 500s. Patient states that he drank a whole case water and a couple days, urinating all the time. Patient states that is very fatigue, nausea and vomiting. Patient denies any significant past alcohol history states that her physical at the beginning of this month. Patient states that he was not told that he any lab abnormality's. Patient denies any fevers or chills no headache. Patient is not taking her medications. (Harry Pearce) - Related Data Home Medications Medication Instructions Recorded Confirmed Hydrochlorothiazide 25 mg PO QAM 07/23/17 03/10/20 Losartan [Cozaar] 50 mg PO DAILY 07/23/17 03/10/20 Atorvastatin Calcium [Lipitor] 10 mg PO HS 03/10/20 03/10/20 Escitalopram [Lexapro] 10 mg PO HS 03/10/20 03/10/20 metFORMIN HCL 1,000 mg PO BID 03/10/20 03/10/20 Previous Rx's Medication Instructions Recorded Metoprolol Tartrate [Lopressor] 50 mg PO BID #60 tab 07/24/17 Allergies Allergy/AdvReac Type Severity Reaction Status Date / Time aspirin Allergy Rapid Verified 03/10/20 10:52 Heart Rate ibuprofen [From Motrin] Allergy Anaphylaxis Verified 03/10/20 10:52 Review of Systems ROS Other: All systems not noted in ROS Statement are negative. <Damion Gutiérrez - Last Filed: 03/10/20 09:13> ROS Other: All systems not noted in ROS Statement are negative. <Harry Pearce - Last Filed: 03/10/20 12:00> ROS Statement: Those systems with pertinent positive or pertinent negative responses have been documented in the HPI. Past Medical History Past Medical History: GERD/Reflux, Hyperlipidemia, Hypertension Additional Past Medical History / Comment(s): SEASONAL ALLERGIES, "CYSTS",CONCUSSIONS History of Any Multi-Drug Resistant Organisms: None Reported Additional Past Surgical History / Comment(s): EGD, wisdom teeth removed.TUBES IN EARS CHILD, NASAL POLYPS REMOVED Past Anesthesia/Blood Transfusion Reactions: No Reported Reaction Additional Past Anesthesia/Blood Transfusion Reaction / Comment(s): c/o dizziness when waking up. Past Psychological History: No Psychological Hx Reported Smoking Status: Former smoker Past Alcohol Use History: Occasional Past Drug Use History: None Reported - Past Family History Mother Family Medical History: No Reported History Father Family Medical History: Coronary Artery Disease (CAD), Diabetes Mellitus, Myocardial Infarction ([place]), Skin Disorder <Harry Pearce - Last Filed: 03/10/20 12:00> General Exam Limitations: no limitations General appearance: alert, in no apparent distress Head exam: Present: atraumatic, normocephalic, normal inspection ENT exam: Present: normal exam, mucous membranes moist Neck exam: Present: normal inspection, full ROM. Absent: tenderness, meningismus, lymphadenopathy Respiratory exam: Present: normal lung sounds bilaterally. Absent: respiratory distress, wheezes, rales, rhonchi, stridor Cardiovascular Exam: Present: regular rate, normal rhythm, normal heart sounds. Absent: systolic murmur, diastolic murmur, rubs, gallop, clicks GI/Abdominal exam: Present: soft, normal bowel sounds. Absent: distended, tenderness, guarding, rebound, rigid Back exam: Absent: CVA tenderness (R), CVA tenderness (L) Neurological exam: Present: alert, oriented X3, CN II-XII intact Skin exam: Present: warm, dry, intact, normal color. Absent: rash <Harry Pearce M - Last Filed: 03/10/20 12:00> Course Vital Signs 03/10/20 03/10/20 03/10/20 08:04 09:30 10:00 Temperature 98 F Pulse Rate 93 97 Respiratory 18 18 18 Rate Blood Pressure 144/89 129/91 121/77 O2 Sat by Pulse 100 94 L 96 Oximetry 03/10/20 03/10/20 10:30 11:00 Temperature Pulse Rate 88 91 Respiratory 18 18 Rate Blood Pressure 124/74 129/80 O2 Sat by Pulse 98 96 Oximetry Medical Decision Making - Lab Data Result diagrams: 03/10/20 08:38 03/10/20 08:38 <Damion Gutiérrez - Last Filed: 03/10/20 09:13> - Lab Data Result diagrams: 03/10/20 08:38 03/10/20 08:38 <Harry Pearce - Last Filed: 03/10/20 12:00> - Medical Decision Making I, Mark Gutiérrez, personally saw and examined the patient. I have reviewed and agree with the PA findings, including all diagnostic interpretations and treatment plans as written unless otherwise stated. I was present for the jose portions of any procedures performed and the inclusive time noted for any critical care statement. (Damion Gutiérrez) - Lab Data Lab Results 03/10/20 03/10/20 03/10/20 Range/Units 08:38 08:38 08:38 WBC 6.7 (3.8-10.6) k/uL RBC 5.16 (4.30-5.90) m/uL Hgb 15.0 (13.0-17.5) gm/dL Hct 47.1 (39.0-53.0) % MCV 91.2 (80.0-100.0) fL MCH 29.1 (25.0-35.0) pg MCHC 31.9 (31.0-37.0) g/dL RDW 12.9 (11.5-15.5) % Plt Count 238 (150-450) k/uL Neutrophils % 54 % Lymphocytes % 38 % Monocytes % 5 % Eosinophils % 1 % Basophils % 0 % Neutrophils # 3.6 (1.3-7.7) k/uL Lymphocytes # 2.5 (1.0-4.8) k/uL Monocytes # 0.4 (0-1.0) k/uL Eosinophils # 0.1 (0-0.7) k/uL Basophils # 0.0 (0-0.2) k/uL Sodium 135 L (137-145) mmol/L Potassium 3.9 (3.5-5.1) mmol/L Chloride 97 L (98-107) mmol/L Carbon Dioxide 25 (22-30) mmol/L Anion Gap 13 mmol/L BUN 24 H (9-20) mg/dL Creatinine 0.77 (0.66-1.25) mg/dL Est GFR (CKD-EPI)AfAm >90 (>60 ml/min/1.73 sqM) Est GFR (CKD-EPI)NonAf >90 (>60 ml/min/1.73 sqM) Glucose 396 H (74-99) mg/dL POC Glucose (mg/dL) (75-99) mg/dL POC Glu [employer] Apprentice ID Plasma Lactic Acid Prem 1.2 (0.7-2.0) mmol/L Calcium 9.4 (8.4-10.2) mg/dL Total Bilirubin 0.7 (0.2-1.3) mg/dL AST 30 (17-59) U/L ALT 51 H (4-49) U/L Alkaline Phosphatase 108 (38-126) U/L Total Protein 7.3 (6.3-8.2) g/dL Albumin 4.3 (3.5-5.0) g/dL Lipase 467 H (23-300) U/L Urine Color Urine Appearance (Clear) Urine pH (5.0-8.0) Ur Specific [place] (1.001-1.035) Urine Protein (Negative) Urine Glucose (UA) (Negative) Urine Ketones (Negative) Urine Blood (Negative) Urine Nitrite (Negative) Urine Bilirubin (Negative) Urine Urobilinogen (<2.0) mg/dL Ur Leukocyte Esterase (Negative) Acetone, Qual Positive (Negative) 03/10/20 03/10/20 Range/Units 08:51 11:01 WBC (3.8-10.6) k/uL RBC (4.30-5.90) m/uL Hgb (13.0-17.5) gm/dL Hct (39.0-53.0) % MCV (80.0-100.0) fL MCH (25.0-35.0) pg MCHC (31.0-37.0) g/dL RDW (11.5-15.5) % Plt Count (150-450) k/uL Neutrophils % % Lymphocytes % % Monocytes % % Eosinophils % % Basophils % % Neutrophils # (1.3-7.7) k/uL Lymphocytes # (1.0-4.8) k/uL Monocytes # (0-1.0) k/uL Eosinophils # (0-0.7) k/uL Basophils # (0-0.2) k/uL Sodium (137-145) mmol/L Potassium (3.5-5.1) mmol/L Chloride (98-107) mmol/L Carbon Dioxide (22-30) mmol/L Anion Gap mmol/L BUN (9-20) mg/dL Creatinine (0.66-1.25) mg/dL Est GFR (CKD-EPI)AfAm (>60 ml/min/1.73 sqM) Est GFR (CKD-EPI)NonAf (>60 ml/min/1.73 sqM) Glucose (74-99) mg/dL POC Glucose (mg/dL) 310 H (75-99) mg/dL POC Glu [employer] Apprentice ID Estephania Simpson Plasma Lactic Acid Prem (0.7-2.0) mmol/L Calcium (8.4-10.2) mg/dL Total Bilirubin (0.2-1.3) mg/dL AST (17-59) U/L ALT (4-49) U/L Alkaline Phosphatase (38-126) U/L Total Protein (6.3-8.2) g/dL Albumin (3.5-5.0) g/dL Lipase (23-300) U/L Urine Color Light Yellow Urine Appearance Clear (Clear) Urine pH 5.0 (5.0-8.0) Ur Specific [place] 1.042 H (1.001-1.035) Urine Protein Negative (Negative) Urine Glucose (UA) 4+ H (Negative) Urine Ketones 2+ H (Negative) Urine Blood Negative (Negative) Urine Nitrite Negative (Negative) Urine Bilirubin Negative (Negative) Urine Urobilinogen <2.0 (<2.0) mg/dL Ur Leukocyte Esterase Negative (Negative) Acetone, Qual (Negative) Disposition <Damion Gutiérrez - Last Filed: 03/10/20 09:13> <Harry Pearce - Last Filed: 03/10/20 12:00> Clinical Impression: Diabetes mellitus, new onset, Nausea & vomiting Disposition: ADMITTED IP TO THIS [facility] Condition: Fair Referrals: Peggy Brooks DO [Primary Care Provider] - 1-2 days
[2020-03-10 09:09] LABS: ALT 51 U/L (4-49); AST 30 U/L (17-59); African American GFR (CKD) >90 (>60 ml/min/1.73 sqM); Albumin 4.3 g/dL (3.5-5.0); Alkaline Phosphatase 108 U/L (38-126); Anion Gap 13 mmol/L; Blood Urea Nitrogen 24 mg/dL (9-20); Calcium 9.4 mg/dL (8.4-10.2); Carbon Dioxide 25 mmol/L (22-30); Chloride 97 mmol/L (98-107); Glucose 396 mg/dL (74-99); Non-African American GFR(CKD) >90 (>60 ml/min/1.73 sqM); Potassium 3.9 mmol/L (3.5-5.1); Sodium 135 mmol/L (137-145); Total Bilirubin 0.7 mg/dL (0.2-1.3); Total Protein 7.3 g/dL (6.3-8.2)
[2020-03-10 09:14] LABS: Appearance,Urine Clear (Clear); Bilirubin,Urine Negative (Negative); Blood,Urine Negative (Negative); Color,Urine Light Yellow; Glucose,Urine (UA) 4+ (Negative); Leukocyte Esterase,Urine Negative (Negative); Nitrite,Urine Negative (Negative); Protein,Urine Negative (Negative); Specific Gravity,Urine 1.042 (1.001-1.035); Urobilinogen,Urine <2.0 mg/dL (<2.0)
[2020-03-10 09:35] LABS: Ketones,Urine 2+ (Negative)
[2020-03-10] MEDS ORDERED: NALOXONE 0.4 MG/ML 1 ML VIAL IV PRN (10:03)
[2020-03-10] MEDS ORDERED: ONDANSETRON 4 MG/2 ML VIAL IVP PRN (10:03)
[2020-03-10 11:02] LABS: Glucose,Whole Blood 310 mg/dL (75-99)
[2020-03-10] MEDS: SODIUM CHLORIDE 0.9% 1,000 ML IV SCH ×2 (11:04→19:31)
[2020-03-10 12:06] LABS: Glucose,Whole Blood 272 mg/dL (75-99)
[2020-03-10] MEDS: INSULIN ASPART (NovoLOG) 100 UNIT/ML VIAL SQ SCH ×3 (12:08→20:26)
[2020-03-10 14:02] LABS: Glucose,Whole Blood 329 mg/dL (75-99)
[2020-03-10 16:57] LABS: Glucose,Whole Blood 285 mg/dL (75-99)
[2020-03-10] MEDS: INSULIN DETEMIR (LEVEMIR) 100 UNIT/ML SYR SQ SCH (18:23)
[2020-03-10 20:24] LABS: Glucose,Whole Blood 385 mg/dL (75-99)
[2020-03-10] MEDS: ESCITALOPRAM 10 MG TAB PO SCH (20:26)
[2020-03-10] MEDS: ATORVASTATIN 10 MG TAB PO SCH (20:26)
[2020-03-10] MEDS: METOPROLOL TARTRATE 50 MG TAB PO SCH (20:26)
[2020-03-10] MEDS: metFORMIN 500 MG TAB PO SCH (20:26)
[2020-03-11] MEDS: SODIUM CHLORIDE 0.9% 1,000 ML IV SCH ×4 (00:51→20:41)
[2020-03-11 06:47] LABS: Glucose,Whole Blood 196 mg/dL (75-99)
[2020-03-11] MEDS: metFORMIN 500 MG TAB PO SCH ×2 (07:50→20:18)
[2020-03-11] MEDS: METOPROLOL TARTRATE 50 MG TAB PO SCH ×2 (07:50→20:17)
[2020-03-11] MEDS: LOSARTAN 50 MG TAB PO SCH (07:50)
[2020-03-11] MEDS: INSULIN ASPART (NovoLOG) 100 UNIT/ML VIAL SQ SCH ×4 (07:51→20:17)
[2020-03-11] MEDS: INSULIN DETEMIR (LEVEMIR) 100 UNIT/ML SYR SQ SCH (07:51)
[2020-03-11] MEDS ORDERED: HYDROCHLOROTHIAZIDE 25 MG TAB PO SCH (09:00)
[2020-03-11 11:24] LABS: Glucose,Whole Blood 205 mg/dL (75-99)
[2020-03-11 16:38] LABS: Glucose,Whole Blood 202 mg/dL (75-99)
[2020-03-11 20:08] LABS: Glucose,Whole Blood 209 mg/dL (75-99)
[2020-03-11] MEDS: ESCITALOPRAM 10 MG TAB PO SCH (20:17)
[2020-03-11] MEDS: ATORVASTATIN 10 MG TAB PO SCH (20:18)
[2020-03-11 20:19] LABS: Hemoglobin A1C 15.3 % (4.0-6.0)
--- NOTE | 2020-03-11 23:32 | P.HPIM ---
History of Present Illness H&P Date: 03/11/20 Chief Complaint: hyperglycemia Jad Tariq is a 39 yo M with PMH of HTN who presented to the ED complaining of severe hyperglycemia. He states that over the past few weeks he has been increasingly fatigued and has noticed polyuria and polydipsia as well as headaches. He was feeling malaised and nauseated at work and his friend checked his sugar which was in the 500s. He reports a strong family history of diabetes in grandfather and father in their 30s and 40s. On presentation labs significant for glucose 400, ALT mildly elevated, lipase 467. UA with 4+ glucose and 2+ ketones. Review of Systems All systems: negative Constitutional: Reports malaise, Reports weakness, Denies chills, Denies fever Eyes: denies blurred vision, denies pain Ears, nose, mouth and throat: Denies headache, Denies sore throat Cardiovascular: Denies chest pain, Denies shortness of breath Respiratory: Denies cough Gastrointestinal: Reports abdominal pain, Reports nausea, Denies diarrhea, Denies vomiting Musculoskeletal: Denies myalgias Integumentary: Denies pruritus, Denies rash Neurological: Denies numbness, Denies weakness Psychiatric: Denies anxiety, Denies depression Endocrine: Reports excessive thirst, Reports fatigue, Reports polydipsia, Reports polyuria, Denies weight change Past Medical History Past Medical History: GERD/Reflux, Hyperlipidemia, Hypertension Additional Past Medical History / Comment(s): Seasonal allergies, cyst in L abdomin and sternum area. History of Any Multi-Drug Resistant Organisms: None Reported Additional Past Surgical History / Comment(s): EGD, bilateral myringotomy/tubes, nasal polypectomy/turbinate reduction, wisdom teeth extractions. Past Anesthesia/Blood Transfusion Reactions: No Reported Reaction Additional Past Anesthesia/Blood Transfusion Reaction / Comment(s): c/o dizziness when waking up. Smoking Status: Former smoker - Past Family History Mother Family Medical History: No Reported History Additional Family Medical History / Comment(s): Mother is healthy Father Family Medical History: Coronary Artery Disease (CAD), Diabetes Mellitus, Myocardial Infarction ([place]) Additional Family Medical History / Comment(s): Pt does not recall age father had PR. Medications and Allergies Home Medications Medication Instructions Recorded Confirmed Type Hydrochlorothiazide 25 mg PO QAM 07/23/17 03/10/20 History Losartan [Cozaar] 50 mg PO DAILY 07/23/17 03/10/20 History Metoprolol Tartrate [Lopressor] 50 mg PO BID #60 tab 07/24/17 03/10/20 Rx Atorvastatin Calcium [Lipitor] 10 mg PO HS 03/10/20 03/10/20 History Escitalopram [Lexapro] 10 mg PO HS 03/10/20 03/10/20 History metFORMIN HCL 1,000 mg PO BID 03/10/20 03/10/20 History Allergies Allergy/AdvReac Type Severity Reaction Status Date / Time aspirin Allergy Rapid Verified 03/10/20 10:52 Heart Rate ibuprofen [From Motrin] Allergy Anaphylaxis Verified 03/10/20 10:52 Physical Exam Vitals: Vital Signs Temp Pulse Resp BP Pulse Ox 03/11/20 19:22 98.3 F 74 17 99/63 97 03/11/20 15:00 98.0 F 83 17 122/74 98 03/11/20 07:00 97.7 F 67 16 120/76 98 03/11/20 03:18 97.6 F 68 18 101/62 98 Intake and Output 03/11/20 03/11/20 03/12/20 14:59 22:59 06:59 Intake Total 800 525 Balance 800 525 Intake: IV 800 Sodium Chloride 0.9% 1, 800 000 ml @ 150 mls/hr IV . Q6H40M [facility] Rx#:[id number] Intake, IV Titration 525 Amount Sodium Chloride 0.9% 1, 525 000 ml @ 150 mls/hr IV . Q6H40M [facility] Rx#:[id number] Other: Weight 106.141 kg General: well nourished, well developed, NAD. Vitals reviewed Eyes: PERRL, EOMI, conjunctiva normal HENT: normocephalic, mucus membranes moist Neck: supple, no JVD Lungs: normal respiratory effort, no wheezes or rales CV: Regular rate and rhythm, no murmur. Peripheral pulses 2+ Abdomen: soft, nondistended, no organomegaly Lymph: no cervical or axillary LAD Skin: warm and dry. Neuro: A&Ox3, normal mood and affect Results CBC & Chem 7: 03/10/20 08:38 03/10/20 08:38 Labs: Abnormal Lab Results - Last 24 Hours (Table) 03/10/20 03/11/20 03/11/20 Range/Units 08:38 06:45 11:22 POC Glucose (mg/dL) 196 H 205 H (75-99) mg/dL Hemoglobin A1c 15.3 H (4.0-6.0) % 03/11/20 03/11/20 Range/Units 16:37 20:04 POC Glucose (mg/dL) 202 H 209 H (75-99) mg/dL Hemoglobin A1c (4.0-6.0) % Thrombosis Risk Factor Assmnt - Choose All That Apply Any of the Below Risk Factors Present?: Yes Each Factor Represents 1 point: Obesity (BMI >25) Other Risk Factors: No Other congenital or acquired thrombophilia - If yes, enter type in comment: No Thrombosis Risk Factor Assessment Total Risk Factor Score: 1 Thrombosis Risk Factor Assessment Level: Low Risk Assessment and Plan (1) Hypertension Current Visit: Yes Status: Acute Code(s): I10 - ESSENTIAL (PRIMARY) HYPERTENSION SNOMED Code(s): 24161707 (2) Diabetes mellitus, new onset Current Visit: Yes Status: Acute Code(s): E11.9 - TYPE 2 DIABETES MELLITUS WITHOUT COMPLICATIONS SNOMED Code(s): 352020914 (3) Nausea & vomiting Current Visit: Yes Status: Acute Code(s): R11.2 - NAUSEA WITH VOMITING, UNSPECIFIED SNOMED Code(s): 17761192 Plan: 1. New onset DM. Obtain c-peptide to determine endogenous insulin production. Start levemir. Accuchecks and sliding scale 2. HTN. Continue cozaar 3. RICHARDSON. continue lexapro
[2020-03-12] MEDS: SODIUM CHLORIDE 0.9% 1,000 ML IV SCH ×2 (04:06→08:07)
[2020-03-12 07:13] LABS: Glucose,Whole Blood 186 mg/dL (75-99)
[2020-03-12 07:43] VITALS: BP 127/77; PULSE 70; RESP 16; TEMP 97.9
[2020-03-12] MEDS: METOPROLOL TARTRATE 50 MG TAB PO SCH (08:05)
[2020-03-12] MEDS: metFORMIN 500 MG TAB PO SCH (08:06)
[2020-03-12] MEDS: INSULIN DETEMIR (LEVEMIR) 100 UNIT/ML SYR SQ SCH (08:06)
[2020-03-12] MEDS: LOSARTAN 50 MG TAB PO SCH (08:06)
[2020-03-12] MEDS: INSULIN ASPART (NovoLOG) 100 UNIT/ML VIAL SQ SCH ×2 (08:06→12:38)
[2020-03-12 11:41] LABS: Glucose,Whole Blood 183 mg/dL (75-99)
--- NOTE | 2020-03-12 16:03 | P.DS ---
Providers Date of admission: 03/10/20 11:18 Expected date of discharge: 03/12/20 Attending physician: Josue Rose MD Primary care physician: Peggy Brooks [facility] Course: Final Diagnoses: (1)Diabetes mellitus II, new onset Current Visit: Yes Status: Acute Code(s): E11.9 - TYPE 2 DIABETES MELLITUS WITHOUT COMPLICATIONS SNOMED Code(s): 919353774 (2) Hypertension Current Visit: Yes Status: Acute Code(s): I10 - ESSENTIAL (PRIMARY) HYPERTENSION SNOMED Code(s): 05781102 (3) Nausea & vomiting, secondary to #1 Current Visit: Yes Status: Acute Code(s): R11.2 - NAUSEA WITH VOMITING, UNSPECIFIED SNOMED Code(s): 49426367 (4) generalized anxiety disorder Hospital course:Jad Tariq is a 39 yo M with PMH of HTN who presented to the ED complaining of severe hyperglycemia. He states that over the past few weeks he has been increasingly fatigued and has noticed polyuria and polydipsia as well as headaches. He was feeling malaised and nauseated at work and his friend checked his sugar which was in the 500s. He reports a strong family history of diabetes in grandfather and father in their 30s and 40s. On presentation labs significant for glucose 400, ALT mildly elevated, lipase 467. UA with 4+ glucose and 2+ ketones.C-peptide 1.52. Significant clinical improvement on Levemir and NovoLog. Further diabetic teaching in clinic with PCP. Patient will be discharged home in a stable condition with guarded prognosis. The impression and plan of care has been dictated as directed. : I performed a history and examination of this patient, discussed the same with the dictator. I agree with the dictator's note ,documented as a scribe. Any additional findings or plans will be noted. Patient Condition at Discharge: Stable Plan - Discharge Summary Discharge Rx Participant: No New Discharge Prescriptions: New INSULIN LISPRO (HumaLOG) [humaLOG] 0 unit SQ AC-TID #1 vial Insulin Glargine,Hum.rec.anlog [Lantus Solostar] 20 unit SQ HS #1 pen Continue Losartan [Cozaar] 50 mg PO DAILY Hydrochlorothiazide 25 mg PO QAM Metoprolol Tartrate [Lopressor] 50 mg PO BID #60 tab metFORMIN HCL 1,000 mg PO BID Atorvastatin Calcium [Lipitor] 10 mg PO HS Escitalopram [Lexapro] 10 mg PO HS Discharge Medication List Hydrochlorothiazide 25 mg PO QAM 07/23/17 [History] Losartan [Cozaar] 50 mg PO DAILY 07/23/17 [History] Metoprolol Tartrate [Lopressor] 50 mg PO BID #60 tab 07/24/17 [Rx] Atorvastatin Calcium [Lipitor] 10 mg PO HS 03/10/20 [History] Escitalopram [Lexapro] 10 mg PO HS 03/10/20 [History] metFORMIN HCL 1,000 mg PO BID 03/10/20 [History] INSULIN LISPRO (HumaLOG) [humaLOG] 0 unit SQ AC-TID #1 vial 03/12/20 [Rx] Insulin Glargine,Hum.rec.anlog [Lantus Solostar] 20 unit SQ HS #1 pen 03/12/20 [Rx] Follow up Appointment(s)/Referral(s): [facility] [NON-STAFF] - As Needed (diabetic supplies) Peggy Brooks DO [Primary Care Provider] - 03/17/20 3:00 pm Patient Instructions/Handouts: Type 2 Diabetes in Adults: New Diagnosis (DC), Meal Planning with Diabetes Exchanges (DC), Hypertension and Diabetes (DC) Activity/Diet/Wound Care/Special Instructions: Consistent carb diet, Accu-Cheks before meals 3 times a day, maintain log and take to follow-up visit with PCP for further recommendations. Discharge Disposition: HOME SELF-CARE
== END 2020-03-12 13:28 | disposition home or self-care (01) ==
LOC: EC 08:01 → 4SSUR 11:18
PROVIDERS: ADMIT Family Medicine; ATTEND Family Medicine
DX: E11.65 Type 2 diabetes mellitus with hyperglycemia (principal); K21.9 Gastro-esophageal reflux disease without esophagitis; E78.5 Hyperlipidemia, unspecified; I10 Essential (primary) hypertension; J30.2 Other seasonal allergic rhinitis; R74.0 Nonspecific elevation of levels of transaminase and lactic acid dehydrogenase [LDH]; E66.9 Obesity, unspecified; Z68.30 Body mass index [BMI] 30.0-30.9, adult; F41.1 Generalized anxiety disorder; Z91.14 Patient's other noncompliance with medication regimen; T50.916A Underdosing of multiple unspecified drugs, medicaments and biological substances, initial encounter; Z79.84 Long term (current) use of oral hypoglycemic drugs; Z79.899 Other long term (current) drug therapy; Z88.6 Allergy status to analgesic agent; Z88.8 Allergy status to other drugs, medicaments and biological substances; Z87.891 Personal history of nicotine dependence; Z82.49 Family history of ischemic heart disease and other diseases of the circulatory system; Z84.0 Family history of diseases of the skin and subcutaneous tissue; Z83.3 Family history of diabetes mellitus; Z11.59 Encounter for screening for other viral diseases
CPT/HCPCS: 96361 ×4; 96374; 99284; 36415; 80053; 82009; 83605; 83690; 85025; 81003; 84681; 83036; G0378 ×3; U0003; J2405

== ENCOUNTER → 2020-07-16 | Outpatient (CLI) | payer OTHER ==
[2020-07-16 15:55] LABS: HGB 15.9 gm/dL (13.0-17.5); MCH 29.8 pg (25.0-35.0); MCHC 31.3 g/dL (31.0-37.0); MCV 95.3 fL (80.0-100.0); Mean Platelet Volume 7.2; Platelet Count 257 k/uL (150-450); RBC 5.35 m/uL (4.30-5.90); RDW 13.1 % (11.5-15.5); WBC 6.7 k/uL (3.8-10.6)
[2020-07-16 23:42] LABS: DHEA Sulfate 39.2 ug/dL (34.5-568.9)
[2020-07-17 01:51] LABS: African American GFR (CKD) 110.9 (60.0-200.0); Albumin 4.5 g/dL (3.80-4.90); Albumin/Globulin Ratio 1.96 (1.60-3.17); Calcium 9.6 mg/dL (8.7-10.3); Globulin 2.3 g/dL (1.6-3.3); Non-African American GFR(CKD) 95.7 (60.0-200.0); Potassium 4.5 mmol/L (3.5-5.5); Total Bilirubin 0.7 mg/dL (0.2-1.2); Total Protein 6.8 g/dL (6.2-8.2)
[2020-07-17 02:39] LABS: ACTH 12.5 pg/mL (0.00-45.99)
== END | disposition home or self-care (01) ==
LOC: LABWHC1 14:12
PROVIDERS: ATTEND Family Medicine
DX: R06.00 Dyspnea, unspecified (principal); R53.83 Other fatigue
CPT/HCPCS: 36415; 80053; 82024; 82533; 82627; 84443; 85027

== ENCOUNTER 2020-07-22 10:39 | Observation (INO) | payer OTHER ==
[2020-07-22] MEDS ORDERED: NITROGLYCERIN OINT 1 INCH/GM PACKET TOPICAL STA (11:06)
[2020-07-22] MEDS ORDERED: IPRATROPIUM-ALBUTEROL 3 ML NEB INHALATION STA (11:06)
--- NOTE | 2020-07-22 11:11 | ED ---
General Adult HPI - General Chief complaint: Chest Pain Stated complaint: chest pain Time Seen by Provider: 07/22/20 10:49 Source: patient, RN notes reviewed Limitations: no limitations - History of Present Illness Initial comments: Patient is a pleasant 39-year-old male presenting to the emergency Department with complaints of chest discomfort. Onset of symptoms was a couple of days ago. Patient did go back to his doctor today and was recommended to come to the emergency department. Discomfort feels like an ache in the left side of the chest. There is radiation towards left shoulder. Patient does have some associated dyspnea and nausea. Patient states he has been having cough and shortness of breath for around a week and a half. No leg pain or leg swelling. No history of chronic respiratory problems. - Related Data Home Medications Medication Instructions Recorded Confirmed Losartan [Cozaar] 50 mg PO DAILY 07/23/17 07/22/20 Atorvastatin Calcium [Lipitor] 10 mg PO HS 03/10/20 07/22/20 Escitalopram [Lexapro] 10 mg PO HS 03/10/20 07/22/20 metFORMIN HCL 1,000 mg PO BID 03/10/20 07/22/20 INSULIN LISPRO (HumaLOG) [humaLOG] See Protocol SQ AC-TID 07/22/20 07/22/20 Insulin Glargine,Hum.rec.anlog 25 unit SQ HS 07/22/20 07/22/20 [Lantus Solostar] Previous Rx's Medication Instructions Recorded Metoprolol Tartrate [Lopressor] 50 mg PO BID #60 tab 07/24/17 Allergies Allergy/AdvReac Type Severity Reaction Status Date / Time aspirin Allergy Rapid Verified 07/22/20 12:00 Heart Rate ibuprofen [From Motrin] Allergy Anaphylaxis Verified 07/22/20 12:00 Review of Systems ROS Statement: Those systems with pertinent positive or pertinent negative responses have been documented in the HPI. ROS Other: All systems not noted in ROS Statement are negative. Constitutional: Denies: fever Eyes: Denies: eye pain ENT: Denies: ear pain Respiratory: Reports: cough, dyspnea Cardiovascular: Reports: chest pain Endocrine: Denies: fatigue Gastrointestinal: Denies: abdominal pain Genitourinary: Denies: dysuria Musculoskeletal: Denies: back pain Skin: Denies: rash Neurological: Denies: weakness Past Medical History Past Medical History: GERD/Reflux, Hyperlipidemia, Hypertension Additional Past Medical History / Comment(s): Seasonal allergies, cyst in L abdomin and sternum area. History of Any Multi-Drug Resistant Organisms: None Reported Additional Past Surgical History / Comment(s): EGD, bilateral myringotomy/tubes, nasal polypectomy/turbinate reduction, wisdom teeth extractions. Past Anesthesia/Blood Transfusion Reactions: No Reported Reaction Additional Past Anesthesia/Blood Transfusion Reaction / Comment(s): c/o dizzines s when waking up. Past Psychological History: No Psychological Hx Reported Smoking Status: Former smoker Past Alcohol Use History: Occasional Past Drug Use History: None Reported - Past Family History Mother Family Medical History: No Reported History Additional Family Medical History / Comment(s): Mother is healthy Father Family Medical History: Coronary Artery Disease (CAD), Diabetes Mellitus, Myocardial Infarction ([place]) Additional Family Medical History / Comment(s): Pt does not recall age father had [place]. General Exam Limitations: no limitations General appearance: alert, in no apparent distress Head exam: Present: normocephalic Eye exam: Present: normal appearance Neck exam: Present: normal inspection Respiratory exam: Present: wheezes Cardiovascular Exam: Present: regular rate, normal rhythm Expanded Peripheral pulses: 2+: Radial (R), Radial (L), Dorsalis Pedis (R), Dorsalis Pedis (L) GI/Abdominal exam: Present: soft. Absent: tenderness Extremities exam: Present: normal inspection. Absent: pedal edema, calf tenderness Neurological exam: Present: alert Psychiatric exam: Present: normal affect, normal mood Skin exam: Present: normal color Course Vital Signs 07/22/20 07/22/20 07/22/20 10:40 11:17 11:25 Temperature 97.4 F L Pulse Rate 111 H 97 99 Respiratory 18 Rate Blood Pressure 136/85 O2 Sat by Pulse 96 Oximetry 07/22/20 12:22 Temperature Pulse Rate 96 Respiratory 18 Rate Blood Pressure 131/86 O2 Sat by Pulse 98 Oximetry EKG Findings - EKG Comments: EKG Findings:: Normal sinus rhythm 89. CO 146. QRS 102. QT 370. QT C4 50. Left axis. Normal QRS. No acute ST change. Medical Decision Making - Medical Decision Making Patient reevaluated and somewhat improved. Lung sounds only with mild wheezing. Patient still has discomfort however only mild at this time. Patient and family updated on results and plan. Case was discussed in detail with Dr. Rose, who will admit covering for Dr. Healy . - Lab Data Result diagrams: 07/22/20 11:09 07/22/20 11:09 Lab Results 07/22/20 07/22/20 07/22/20 Range/Units 11:09 11:09 11:09 WBC 7.5 (3.8-10.6) k/uL RBC 5.35 (4.30-5.90) m/uL Hgb 16.0 (13.0-17.5) gm/dL Hct 50.4 (39.0-53.0) % MCV 94.2 (80.0-100.0) fL MCH 29.8 (25.0-35.0) pg MCHC 31.7 (31.0-37.0) g/dL RDW 13.1 (11.5-15.5) % Plt Count 246 (150-450) k/uL Neutrophils % 62 % Lymphocytes % 23 % Monocytes % 6 % Eosinophils % 6 % Basophils % 1 % Neutrophils # 4.7 (1.3-7.7) k/uL Lymphocytes # 1.7 (1.0-4.8) k/uL Monocytes # 0.5 (0-1.0) k/uL Eosinophils # 0.5 (0-0.7) k/uL Basophils # 0.0 (0-0.2) k/uL PT 10.4 (9.0-12.0) sec INR 1.0 (<1.2) APTT 22.9 (22.0-30.0) sec Sodium 138 (137-145) mmol/L Potassium 3.6 (3.5-5.1) mmol/L Chloride 107 (98-107) mmol/L Carbon Dioxide 22 (22-30) mmol/L Anion Gap 9 mmol/L BUN 27 H (9-20) mg/dL Creatinine 0.85 (0.66-1.25) mg/dL Est GFR (CKD-EPI)AfAm >90 (>60 ml/min/1.73 sqM) Est GFR (CKD-EPI)NonAf >90 (>60 ml/min/1.73 sqM) Glucose 137 H (74-99) mg/dL Calcium 9.4 (8.4-10.2) mg/dL Magnesium 2.1 (1.6-2.3) mg/dL Total Bilirubin 0.5 (0.2-1.3) mg/dL AST 23 (17-59) U/L ALT 18 (4-49) U/L Alkaline Phosphatase 64 (38-126) U/L Creatine Kinase 75 (55-170) U/L Troponin I (0.000-0.034) ng/mL Total Protein 7.3 (6.3-8.2) g/dL Albumin 4.4 (3.5-5.0) g/dL 07/22/20 Range/Units 11:09 WBC (3.8-10.6) k/uL RBC (4.30-5.90) m/uL Hgb (13.0-17.5) gm/dL Hct (39.0-53.0) % MCV (80.0-100.0) fL MCH (25.0-35.0) pg MCHC (31.0-37.0) g/dL RDW (11.5-15.5) % Plt Count (150-450) k/uL Neutrophils % % Lymphocytes % % Monocytes % % Eosinophils % % Basophils % % Neutrophils # (1.3-7.7) k/uL Lymphocytes # (1.0-4.8) k/uL Monocytes # (0-1.0) k/uL Eosinophils # (0-0.7) k/uL Basophils # (0-0.2) k/uL PT (9.0-12.0) sec INR (<1.2) APTT (22.0-30.0) sec Sodium (137-145) mmol/L Potassium (3.5-5.1) mmol/L Chloride (98-107) mmol/L Carbon Dioxide (22-30) mmol/L Anion Gap mmol/L BUN (9-20) mg/dL Creatinine (0.66-1.25) mg/dL Est GFR (CKD-EPI)AfAm (>60 ml/min/1.73 sqM) Est GFR (CKD-EPI)NonAf (>60 ml/min/1.73 sqM) Glucose (74-99) mg/dL Calcium (8.4-10.2) mg/dL Magnesium (1.6-2.3) mg/dL Total Bilirubin (0.2-1.3) mg/dL AST (17-59) U/L ALT (4-49) U/L Alkaline Phosphatase (38-126) U/L Creatine Kinase (55-170) U/L Troponin I <0.012 (0.000-0.034) ng/mL Total Protein (6.3-8.2) g/dL Albumin (3.5-5.0) g/dL - Radiology Data Radiology results: report reviewed (Computed tomography scan of the chest negative for pulmonary embolism. Some endobronchial opacification consider bronchitis or asthma. Borderline mediastinal and hilar lymph nodes unchanged.) Disposition Clinical Impression: Chest pain, Asthmatic bronchitis Disposition: ADMITTED IP TO THIS HOSP Is patient prescribed a controlled substance at d/c from ED?: No Referrals: Demi Healy MD [STAFF PHYSICIAN] - 1-2 days Decision Time: 12:58
[2020-07-22 11:25] LABS: Basophils % (A) 1 %; Eosinophils # (A) 0.5 k/uL (0-0.7); Eosinophils % (A) 6 %; HCT 50.4 % (39.0-53.0); Lymphocytes # (A) 1.7 k/uL (1.0-4.8); Lymphocytes % (A) 23 %; MCH 29.8 pg (25.0-35.0); MCHC 31.7 g/dL (31.0-37.0); MCV 94.2 fL (80.0-100.0); Mean Platelet Volume 7.6; Monocytes # (A) 0.5 k/uL (0-1.0); Monocytes % (A) 6 %; Neutrophils # (A) 4.7 k/uL (1.3-7.7); Neutrophils % (A) 62 %; Platelet Count 246 k/uL (150-450); RBC 5.35 m/uL (4.30-5.90); RDW 13.1 % (11.5-15.5); WBC 7.5 k/uL (3.8-10.6)
[2020-07-22 11:32] LABS: ALT 18 U/L (4-49); AST 23 U/L (17-59); African American GFR (CKD) >90 (>60 ml/min/1.73 sqM); Albumin 4.4 g/dL (3.5-5.0); Alkaline Phosphatase 64 U/L (38-126); Anion Gap 9 mmol/L; Blood Urea Nitrogen 27 mg/dL (9-20); Calcium 9.4 mg/dL (8.4-10.2); Carbon Dioxide 22 mmol/L (22-30); Chloride 107 mmol/L (98-107); Creatine Kinase 75 U/L (55-170); Glucose 137 mg/dL (74-99); Magnesium 2.1 mg/dL (1.6-2.3); Non-African American GFR(CKD) >90 (>60 ml/min/1.73 sqM); Potassium 3.6 mmol/L (3.5-5.1); Sodium 138 mmol/L (137-145); Total Bilirubin 0.5 mg/dL (0.2-1.3); Total Protein 7.3 g/dL (6.3-8.2)
[2020-07-22 11:37] LABS: Partial Thromboplastin Time 22.9 sec (22.0-30.0); Prothrombin Time 10.4 sec (9.0-12.0)
--- NOTE | 2020-07-22 12:12 | CT ---
EXAMINATION TYPE: CT angio chest DATE OF EXAM: 07/22/2020 COMPARISON: 07/23/2017 HISTORY: 39-year-old male Dyspnea and chest pain TECHNIQUE: Contiguous axial scanning of the chest performed without and with IV Contrast, patient inj ected with 100 ml mL of Isovue 370. Coronal/sagittal MIP reconstructions performed. CT DLP: 454.3 mGycm Automated exposure control for dose reduction was used. FINDINGS: Heart normal size without pericardial effusion. No flattening of the interventricular septum or reflu x of contrast into the hepatic veins. Aorta normal caliber with conventional branching anatomy. Scattered nonenlarged mediastinal and bilateral hilar lymph nodes measuring up to 7 mm in the mediast inum and up to 1.1 cm at the right hilum. These appear to have been present on the prior exam. Satisfactory opacification of the pulmonary arterial system without evidence for pulmonary embolus. Some endobronchial plugging is noted involving segmental branch of the left lower lobe, referred to a xial image 98. No consolidation or pleural effusion. Mild diffuse bronchial wall thickening. Low-attenuation hepatic parenchyma again suggests fatty infiltration. Bones: No osseous destructive process. Normal variant sternal foramen. IMPRESSION: 1. NO EVIDENCE FOR PULMONARY EMBOLUS. 2. SOME ENDOBRONCHIAL OPACIFICATION INVOLVING A SEGMENTAL BRANCH OF THE LEFT LOWER LOBE. GIVEN ADDITI ONAL BRONCHIAL WALL THICKENING, CONSIDER BRONCHITIS OR ASTHMA. 3. NONENLARGED AND BORDERLINE SIZED MEDIASTINAL AND HILAR LYMPH NODES, UNCHANGED FROM 2017 SUGGESTING A CHRONIC POSTINFLAMMATORY ETIOLOGY. 4. REDEMONSTRATED HEPATIC STEATOSIS.
[2020-07-22] MEDS ORDERED: NITROGLYCERIN SL TABS 0.4 MG TAB SUBLINGUAL PRN (12:58)
[2020-07-22] MEDS ORDERED: methylPREDNISolone SOD SUCCI 125 MG/2 ML VIAL IV SCH (13:00)
[2020-07-22] MEDS: IPRATROPIUM-ALBUTEROL 3 ML NEB INHALATION PRN (13:26)
[2020-07-22] MEDS ORDERED: diphenhydrAMINE 50 MG/ML 1 ML VIAL IVP STA (13:33)
[2020-07-22] MEDS ORDERED: EPINEPHrine 1 MG/ML 1 ML AMP IM STA (13:34)
--- NOTE | 2020-07-22 13:47 | XR ---
EXAMINATION TYPE: XR chest 1V portable DATE OF EXAM: 07/22/2020 COMPARISON: Prior chest x-ray 07/23/2017 HISTORY: Dyspnea, difficulty breathing TECHNIQUE: Single frontal view of the chest is obtained. FINDINGS: There is no focal air space opacity, pleural effusion, or pneumothorax seen. The cardiac silhouette size is within normal limits. The osseous structures are intact. IMPRESSION: No acute process.
--- NOTE | 2020-07-22 14:02 | ED ---
Medical Decision Making - Medical Decision Making Patient did receive Solu-Medrol and shortly afterwards became very short of breath and tachycardic and anxious. Lung sounds were diminished and wheeze. Patient was hypertensive in no respiratory distress. Patient was given 0.3 IM of epi and 100% oxygen followed by nebulizer treatments. Patient also received 50 mg of Benadryl. Following this patient did improve. Patient was watched in reevaluated multiple times. At this time heart rate is 120. Patient is no longer in respiratory distress. Patient states he is breathing well. Patient was not originally identified as methylprednisone ALLERGY however following administration pharmacy did call us and agitated on to an ALLERGY. - Lab Data Result diagrams: 07/22/20 11:09 07/22/20 11:09 Lab Results 07/22/20 07/22/20 07/22/20 Range/Units 11:09 11:09 11:09 WBC 7.5 (3.8-10.6) k/uL RBC 5.35 (4.30-5.90) m/uL Hgb 16.0 (13.0-17.5) gm/dL Hct 50.4 (39.0-53.0) % MCV 94.2 (80.0-100.0) fL MCH 29.8 (25.0-35.0) pg MCHC 31.7 (31.0-37.0) g/dL RDW 13.1 (11.5-15.5) % Plt Count 246 (150-450) k/uL Neutrophils % 62 % Lymphocytes % 23 % Monocytes % 6 % Eosinophils % 6 % Basophils % 1 % Neutrophils # 4.7 (1.3-7.7) k/uL Lymphocytes # 1.7 (1.0-4.8) k/uL Monocytes # 0.5 (0-1.0) k/uL Eosinophils # 0.5 (0-0.7) k/uL Basophils # 0.0 (0-0.2) k/uL PT 10.4 (9.0-12.0) sec INR 1.0 (<1.2) APTT 22.9 (22.0-30.0) sec Sodium 138 (137-145) mmol/L Potassium 3.6 (3.5-5.1) mmol/L Chloride 107 (98-107) mmol/L Carbon Dioxide 22 (22-30) mmol/L Anion Gap 9 mmol/L BUN 27 H (9-20) mg/dL Creatinine 0.85 (0.66-1.25) mg/dL Est GFR (CKD-EPI)AfAm >90 (>60 ml/min/1.73 sqM) Est GFR (CKD-EPI)NonAf >90 (>60 ml/min/1.73 sqM) Glucose 137 H (74-99) mg/dL Calcium 9.4 (8.4-10.2) mg/dL Magnesium 2.1 (1.6-2.3) mg/dL Total Bilirubin 0.5 (0.2-1.3) mg/dL AST 23 (17-59) U/L ALT 18 (4-49) U/L Alkaline Phosphatase 64 (38-126) U/L Creatine Kinase 75 (55-170) U/L Troponin I (0.000-0.034) ng/mL Total Protein 7.3 (6.3-8.2) g/dL Albumin 4.4 (3.5-5.0) g/dL 07/22/20 Range/Units 11:09 WBC (3.8-10.6) k/uL RBC (4.30-5.90) m/uL Hgb (13.0-17.5) gm/dL Hct (39.0-53.0) % MCV (80.0-100.0) fL MCH (25.0-35.0) pg MCHC (31.0-37.0) g/dL RDW (11.5-15.5) % Plt Count (150-450) k/uL Neutrophils % % Lymphocytes % % Monocytes % % Eosinophils % % Basophils % % Neutrophils # (1.3-7.7) k/uL Lymphocytes # (1.0-4.8) k/uL Monocytes # (0-1.0) k/uL Eosinophils # (0-0.7) k/uL Basophils # (0-0.2) k/uL PT (9.0-12.0) sec INR (<1.2) APTT (22.0-30.0) sec Sodium (137-145) mmol/L Potassium (3.5-5.1) mmol/L Chloride (98-107) mmol/L Carbon Dioxide (22-30) mmol/L Anion Gap mmol/L BUN (9-20) mg/dL Creatinine (0.66-1.25) mg/dL Est GFR (CKD-EPI)AfAm (>60 ml/min/1.73 sqM) Est GFR (CKD-EPI)NonAf (>60 ml/min/1.73 sqM) Glucose (74-99) mg/dL Calcium (8.4-10.2) mg/dL Magnesium (1.6-2.3) mg/dL Total Bilirubin (0.2-1.3) mg/dL AST (17-59) U/L ALT (4-49) U/L Alkaline Phosphatase (38-126) U/L Creatine Kinase (55-170) U/L Troponin I <0.012 (0.000-0.034) ng/mL Total Protein (6.3-8.2) g/dL Albumin (3.5-5.0) g/dL Critical Care Time Critical Care Time: Yes Total Critical Care Time: 33 Disposition Clinical Impression: Chest pain, Asthmatic bronchitis, Anaphylactic reaction Disposition: ADMITTED IP TO THIS HOSP Is patient prescribed a controlled substance at d/c from ED?: No
[2020-07-22 16:49] LABS: Glucose,Whole Blood 151 mg/dL (75-99)
[2020-07-22] MEDS: NITROGLYCERIN OINT 1 INCH/GM PACKET TOPICAL SCH ×2 (18:23→23:02)
[2020-07-22] MEDS: IPRATROPIUM-ALBUTEROL 3 ML NEB INHALATION SCH ×2 (19:15→20:08)
[2020-07-22 20:26] LABS: Glucose,Whole Blood 224 mg/dL (75-99)
[2020-07-22] MEDS: ESCITALOPRAM 10 MG TAB PO SCH (20:38)
[2020-07-22] MEDS: INSULIN DETEMIR (LEVEMIR) 100 UNIT/ML SYR SQ SCH (20:38)
[2020-07-22] MEDS: METOPROLOL TARTRATE 50 MG TAB PO SCH (20:38)
[2020-07-22] MEDS: INSULIN ASPART (NovoLOG) 100 UNIT/ML VIAL SQ SCH (20:38)
[2020-07-22] MEDS: ENOXAPARIN 40 MG/0.4 ML SYRINGE SQ SCH (20:39)
[2020-07-22] MEDS ORDERED: ATORVASTATIN 10 MG TAB PO SCH (21:00)
[2020-07-23] MEDS: IPRATROPIUM-ALBUTEROL 3 ML NEB INHALATION PRN (04:46)
[2020-07-23 06:17] LABS: Glucose,Whole Blood 129 mg/dL (75-99)
[2020-07-23] MEDS: INSULIN ASPART (NovoLOG) 100 UNIT/ML VIAL SQ SCH ×4 (06:18→20:39)
[2020-07-23] MEDS: NITROGLYCERIN OINT 1 INCH/GM PACKET TOPICAL SCH ×4 (06:28→23:57)
[2020-07-23] MEDS: IPRATROPIUM-ALBUTEROL 3 ML NEB INHALATION SCH ×4 (08:23→20:17)
[2020-07-23 08:25] LABS: Cholesterol 150 mg/dL (<200); HDL Cholesterol 52 mg/dL (40-60); LDL Cholesterol,Calculated 74 mg/dL (0-99); Triglycerides 118 mg/dL (<150)
[2020-07-23] MEDS ORDERED: LOSARTAN 50 MG TAB PO SCH (09:00)
[2020-07-23] MEDS: LOSARTAN 25 MG TAB PO SCH (09:48)
[2020-07-23] MEDS: METOPROLOL TARTRATE 50 MG TAB PO SCH ×2 (09:48→20:33)
[2020-07-23] MEDS: ENOXAPARIN 40 MG/0.4 ML SYRINGE SQ SCH (09:48)
--- NOTE | 2020-07-23 11:29 | P.CRDCN ---
History of Present Illness History of present illness: This is Dr. Cisneros dictating a consult on this patient The patient was interviewed and examined IMPRESSION / ASSESSMENT: Abnormal chronic enzymes following anaphylactic reaction Atypical chest discomfort with normal cardiac enzymes 2 prior to the anaphylactic reaction Type 2 diabetes Hypertension PLAN: Continue metoprolol and losartan 1 blood pressure Increase atorvastatin to 20 mg by mouth daily HPI Patient sent by primary care physician on account of an abnormal ECG I reviewed all his ECGs and it shows inverted T waves in the inferior leads, supraventricular mechanism no ST segment abnormalities He's been complaining of chest discomfort off and on but I don't see any CO de pression nor do I see any ST segment abnormalities He was also bit short of breath in the ER and was given IV Solu-Medrol following which he immediately had an anaphylactic reaction His first 2 troponins that were drawn before this reaction were normal The troponins drawn 5 hours after the reaction and treatment with epinephrine are abnormal He has been complaining of shortness of breath cough upper respiratory symptoms of sinusitis for about a month He has intermittent chest discomfort There are no ST segment abnormalities and his initial to ECGs before for anaphylactic reaction were normal He denies any fever or chills He does have type 2 diabetes as well as hypertension and he is on metoprolol and losartan. He also takes atorvastatin 10 mg by mouth daily ROS: No fever chills or rigors, no cough, phlegm or expectoration, no nausea, vomiting or diarrhea, no hematuria, dysuria, no musculoskeletal complaints, no strokes or seizures, no skin lesions. EXAMINATION: Afebrile 97% 7F pulse rate in the 70s, blood pressure 110/61 mmHg Breath sounds are clear no rhonchi no crackles Heart sounds S1 and S2 normal no murmurs or gallops or rub Next several days warm no edema REVIEW OF LABS, ECG & MEDICAL DATA White count 7.5, hemoglobin 16 Sodium 138, potassium 3.6, BUN 27 and creatinine 0.85 LDL 74 HDL 52, triglycerides 118 and total cholesterol 150 Past Medical History Past Medical History: Diabetes Mellitus, GERD/Reflux, Hyperlipidemia, Hypertension Additional Past Medical History / Comment(s): NIDDM type II-diagnosed 02/2020, seasonal allergies, cyst in L abdomin and sternum area. History of Any Multi-Drug Resistant Organisms: None Reported Additional Past Surgical History / Comment(s): EGD, bilateral myringotomy/tubes, nasal polypectomy/turbinate reduction, wisdom teeth extractions. Past Anesthesia/Blood Transfusion Reactions: No Reported Reaction Additional Past Anesthesia/Blood Transfusion Reaction / Comment(s): c/o dizziness when waking up. Smoking Status: Former smoker - Past Family History Mother Family Medical History: No Reported History Additional Family Medical History / Comment(s): Mother is healthy Father Family Medical History: Coronary Artery Disease (CAD), Diabetes Mellitus, Myocardial Infarction ([place]) Additional Family Medical History / Comment(s): Father had his first of three MIs at the age of 49 yrs. He has had multiple cardiac stents Medications and Allergies Home Medications Medication Instructions Recorded Confirmed Type Losartan [Cozaar] 50 mg PO DAILY 07/23/17 07/22/20 History Metoprolol Tartrate [Lopressor] 50 mg PO BID #60 tab 07/24/17 07/22/20 Rx Atorvastatin Calcium [Lipitor] 10 mg PO HS 03/10/20 07/22/20 History Escitalopram [Lexapro] 10 mg PO HS 03/10/20 07/22/20 History metFORMIN HCL 1,000 mg PO BID 03/10/20 07/22/20 History INSULIN LISPRO (HumaLOG) [humaLOG] See Protocol SQ AC-TID 07/22/20 07/22/20 History Insulin Glargine,Hum.rec.anlog 25 unit SQ HS 07/22/20 07/22/20 History [Lantus Solostar] Allergies Allergy/AdvReac Type Severity Reaction Status Date / Time aspirin Allergy Rapid Verified 07/22/20 12:00 Heart Rate ibuprofen [From Motrin] Allergy Anaphylaxis Verified 07/22/20 12:00 methylprednisolone Allergy Anaphylaxis Verified 07/22/20 13:24 [From Solu-Medrol] Physical Exam Vitals: Vital Signs Temp Pulse Pulse Resp BP BP Pulse Ox 07/23/20 08:33 76 07/23/20 08:24 72 07/23/20 08:00 97.7 F 68 18 110/61 95 07/23/20 04:55 92 07/23/20 04:49 22 07/23/20 04:46 90 07/23/20 04:00 97.6 F 76 16 109/60 93 L 07/22/20 23:53 78 16 07/22/20 23:28 98.2 F 78 16 106/69 94 L 07/22/20 20:17 103 H 16 07/22/20 20:08 102 H 16 07/22/20 20:00 100 18 07/22/20 19:49 97.9 F 100 18 119/74 95 07/22/20 18:15 98.4 F 114 H 18 110/66 95 07/22/20 18:07 122 H 19 07/22/20 14:30 98.0 F 112 H 19 141/85 95 07/22/20 14:00 125 H 18 127/84 95 07/22/20 13:50 128 H 07/22/20 13:42 128 H 07/22/20 13:41 130 H 22 141/97 98 07/22/20 13:26 154 H 07/22/20 13:20 140 H 30 H 160/100 90 L 07/22/20 12:22 96 18 131/86 98 Intake and Output 07/22/20 07/23/20 07/23/20 22:59 06:59 14:59 Intake Total 300 300 0 Balance 300 300 0 Intake: Oral 300 300 0 Other: Voiding Method Urinal Urinal # Voids 2 2 # Bowel Movements 1 Weight 97.9 kg Results 07/22/20 11:09 07/22/20 11:09 Cardiac Enzymes 07/22/20 07/22/20 07/22/20 Range/Units 11:09 11:09 14:48 AST 23 (17-59) U/L Troponin I <0.012 0.020 (0.000-0.034) ng/mL 07/22/20 07/23/20 Range/Units 18:02 00:14 AST (17-59) U/L Troponin I 0.088 H* 0.067 H* (0.000-0.034) ng/mL Coagulation 07/22/20 Range/Units 11:09 PT 10.4 (9.0-12.0) sec APTT 22.9 (22.0-30.0) sec Lipids 07/23/20 Range/Units 07:34 Triglycerides 118 (<150) mg/dL Cholesterol 150 (<200) mg/dL HDL Cholesterol 52 (40-60) mg/dL Comprehensive Metabolic Panel 07/22/20 Range/Units 11:09 Sodium 138 (137-145) mmol/L Potassium 3.6 (3.5-5.1) mmol/L Chloride 107 (98-107) mmol/L Carbon Dioxide 22 (22-30) mmol/L BUN 27 H (9-20) mg/dL Creatinine 0.85 (0.66-1.25) mg/dL Glucose 137 H (74-99) mg/dL Calcium 9.4 (8.4-10.2) mg/dL AST 23 (17-59) U/L ALT 18 (4-49) U/L Alkaline Phosphatase 64 (38-126) U/L Total Protein 7.3 (6.3-8.2) g/dL Albumin 4.4 (3.5-5.0) g/dL Current Medications Generic Name Dose Route Start Last Admin Trade Name Freq PRN Reason Stop Dose Admin Albuterol/Ipratropium 3 ml 07/22/20 16:00 07/23/20 08:23 Ipratropium-Albuterol 3 Ml Neb INHALATION 3 ml RT-QID JUANA Administration Albuterol/Ipratropium 3 ml 07/22/20 12:58 07/23/20 04:46 Ipratropium-Albuterol 3 Ml Neb INHALATION 3 ml RT-Q4H PRN Administration Shortness Of Breath Or Wheezing Atorvastatin Calcium 20 mg 07/23/20 21:00 Atorvastatin 20 Mg Tab PO HS JUANA Enoxaparin Sodium 40 mg 07/22/20 20:00 07/23/20 09:48 Enoxaparin 40 Mg/0.4 Ml Syringe SQ 40 mg DAILY JUANA Administration Escitalopram Oxalate 10 mg 07/22/20 21:00 07/22/20 20:38 Escitalopram 10 Mg Tab PO 10 mg HS JUANA Administration Insulin Aspart 0 unit 07/22/20 21:00 07/23/20 06:18 Insulin Aspart (Novolog) 100 Unit/Ml Vial SQ Not Given ACHS [facility] Protocol Insulin Detemir 25 unit 07/22/20 21:00 07/22/20 20:38 Insulin Detemir (Levemir) 100 Unit/Ml Syr SQ 25 unit HS JUANA Administration Losartan Potassium 25 mg 07/23/20 09:00 07/23/20 09:48 Losartan 25 Mg Tab PO 25 mg DAILY JUANA Administration Metoprolol Tartrate 50 mg 07/22/20 21:00 07/23/20 09:48 Metoprolol Tartrate 50 Mg Tab PO 50 mg BID JUANA Administration Nitroglycerin 0.4 mg 07/22/20 12:58 Nitroglycerin Sl Tabs 0.4 Mg Tab SUBLINGUAL Q5M PRN Chest Pain Nitroglycerin 1 inch 07/22/20 18:00 07/23/20 06:28 Nitroglycerin Oint 1 Inch/Gm Packet TOPICAL 1 inch Q6HR JUANA Administration Intake and Output 07/22/20 07/23/20 07/23/20 22:59 06:59 14:59 Intake Total 300 300 0 Balance 300 300 0 Intake: Oral 300 300 0 Other: Voiding Method Urinal Urinal # Voids 2 2 # Bowel Movements 1 Weight 97.9 kg 07/22/20 11:09 07/22/20 11:09
[2020-07-23 11:54] LABS: Glucose,Whole Blood 135 mg/dL (75-99)
--- NOTE | 2020-07-23 12:07 | ECHOF ---
Referral Reason:CHEST PAIN MEASUREMENTS -------- HEIGHT: 182.9 cm WEIGHT: 97.5 kg BP: RVIDd: 2.4 cm (< 3.3) IVSd: 1.0 cm (0.6 - 1.1) LVIDd: 4.1 cm (3.9 - 5.3) LVPWd: 1.4 cm (0.6 - 1.1) IVSs: 1.5 cm LVIDs: 2.4 cm LVPWs: 1.5 cm LAESV Index (A-L): 18.65 ml/m Ao Diam: 3.1 cm (2.0 - 3.7) AV Cusp: 1.8 cm (1.5 - 2.6) MV EXCURSION: 16.659 mm (> 18.000) MV EF SLOPE: 53 mm/s (70 - 150) MV E Ranjith: 0.55 m/s MV DecT: 257 ms MV A Ranjith: 0.64 m/s MV E/A Ratio: 0.86 RAP: 5.00 mmHg RVSP: 14.20 mmHg FINDINGS -------- Sinus rhythm. This was a technically good study. LV size, wall thickness and systolic function are normal, with an EF greater than 55%. The left lauren tricular size is normal. The right ventricle is normal in size. The left atrial size is normal. Normal LA size by volume 22+/-6 ml/m2. The right atrial size is normal. The aortic valve is trileaflet, and appears structurally normal. No aortic stenosis or regurgitation. Mild mitral regurgitation is present. Mild tricuspid regurgitation present. Right ventricular systolic pressure is normal at < 35 mmHg. There is no pulmonic regurgitation present. The aortic root size is normal. There is no pericardial effusion. CONCLUSIONS -------- 1. LV size, wall thickness and systolic function are normal, with an EF greater than 55%. 2. The left ventricular size is normal. 3. The right ventricle is normal in size. 4. The left atrial size is normal. 5. Normal LA size by volume 22+/-6 ml/m2. 6. The right atrial size is normal. 7. Mild mitral regurgitation is present. 8. Mild tricuspid regurgitation present. 9. The aortic root size is normal. 10. There is no pericardial effusion. [employer]ACHINE: Ameena Rodriguez RDCS
[2020-07-23 17:16] LABS: Glucose,Whole Blood 125 mg/dL (75-99)
[2020-07-23 20:25] LABS: Glucose,Whole Blood 189 mg/dL (75-99)
[2020-07-23] MEDS: ESCITALOPRAM 10 MG TAB PO SCH (20:33)
[2020-07-23] MEDS: INSULIN DETEMIR (LEVEMIR) 100 UNIT/ML SYR SQ SCH (20:39)
[2020-07-23] MEDS ORDERED: ATORVASTATIN 20 MG TAB PO SCH (21:00)
--- NOTE | 2020-07-24 00:03 | P.HPIM ---
History of Present Illness H&P Date: 07/23/20 Chief Complaint: chest pain Jad Tariq is a 39 yo M with PMH of T2DM, HTN who presented to the ED after being seen in his PCP clinic for chest pain. He complains that for the past few days he has experienced a L sided aching pain that radiates to the L shoulder and is associated with coughing. He complains that over a similar time frame he has been experiencing cough with shortness of breath. He denies sore throat, fever, chills, loss of sense of smell or taste. On presentation he was tachycardic, labs initially unremarkable, CTA chest clear without PE or pneumoni a. EKG reviewed and wnl. Pt was given solumedrol and subsequently had an anaphylactic reaction with rise in HR to 160s and required a NRB mask. He did not require intubation and subsequently returned to baseline. Later troponin did come back elevated at 0.088. Today pt is feeling improved and chest pain almost resolved. Review of Systems All systems: negative Constitutional: Reports malaise, Reports weakness, Denies chills, Denies fever Eyes: denies blurred vision, denies pain Ears, nose, mouth and throat: Denies headache, Denies sore throat Cardiovascular: Reports chest pain, Denies irregular heart beat, Denies leg edema, Denies shortness of breath Respiratory: Reports cough, Reports dyspnea Gastrointestinal: Denies abdominal pain, Denies diarrhea, Denies nausea, Denies vomiting Musculoskeletal: Denies myalgias Integumentary: Denies pruritus, Denies rash Neurological: Denies numbness, Denies weakness Psychiatric: Denies anxiety, Denies depression Endocrine: Denies fatigue, Denies weight change Past Medical History Past Medical History: Diabetes Mellitus, GERD/Reflux, Hyperlipidemia, Hypertension Additional Past Medical History / Comment(s): NIDDM type II-diagnosed 02/2020, seasonal allergies, cyst in L abdomin and sternum area. History of Any Multi-Drug Resistant Organisms: None Reported Additional Past Surgical History / Comment(s): EGD, bilateral myringotomy/tubes, nasal polypectomy/turbinate reduction, wisdom teeth extractions. Past Anesthesia/Blood Transfusion Reactions: No Reported Reaction Additional Past Anesthesia/Blood Transfusion Reaction / Comment(s): c/o dizziness when waking up. Smoking Status: Former smoker - Past Family History Mother Family Medical History: No Reported History Additional Family Medical History / Comment(s): Mother is healthy Father Family Medical History: Coronary Artery Disease (CAD), Diabetes Mellitus, Myocardial Infarction (OK) Additional Family Medical History / Comment(s): Father had his first of three MIs at the age of 49 yrs. He has had multiple cardiac stents Medications and Allergies Home Medications Medication Instructions Recorded Confirmed Type Losartan [Cozaar] 50 mg PO DAILY 07/23/17 07/22/20 History Metoprolol Tartrate [Lopressor] 50 mg PO BID #60 tab 07/24/17 07/22/20 Rx Atorvastatin Calcium [Lipitor] 10 mg PO HS 03/10/20 07/22/20 History Escitalopram [Lexapro] 10 mg PO HS 03/10/20 07/22/20 History metFORMIN HCL 1,000 mg PO BID 03/10/20 07/22/20 History INSULIN LISPRO (HumaLOG) [humaLOG] See Protocol SQ AC-TID 07/22/20 07/22/20 History Insulin Glargine,Hum.rec.anlog 25 unit SQ HS 07/22/20 07/22/20 History [Lantus Solostar] Allergies Allergy/AdvReac Type Severity Reaction Status Date / Time aspirin Allergy Rapid Verified 07/22/20 12:00 Heart Rate ibuprofen [From Motrin] Allergy Anaphylaxis Verified 07/22/20 12:00 methylprednisolone Allergy Anaphylaxis Verified 07/22/20 13:24 [From Solu-Medrol] Physical Exam Vitals: Vital Signs Temp Pulse Pulse Resp BP Pulse Ox 07/23/20 23:18 80 16 07/23/20 23:17 97.9 F 80 16 130/74 95 07/23/20 20:26 78 07/23/20 20:17 78 07/23/20 19:57 93 18 07/23/20 19:56 98.2 F 93 18 124/75 95 07/23/20 16:25 19 07/23/20 16:15 97.9 F 88 19 141/62 93 L 07/23/20 16:03 78 07/23/20 16:00 79 19 07/23/20 15:53 78 07/23/20 12:00 98.4 F 79 17 121/65 95 07/23/20 11:50 80 07/23/20 11:41 80 07/23/20 08:33 76 07/23/20 08:24 72 07/23/20 08:00 97.7 F 79 17 110/61 95 07/23/20 04:55 92 07/23/20 04:49 22 07/23/20 04:46 90 07/23/20 04:00 97.6 F 76 16 109/60 93 L 07/22/20 23:53 78 16 Intake and Output 07/23/20 07/23/20 07/24/20 14:59 22:59 06:59 Intake Total 490 462 Balance 490 462 Intake: IV 10 0.9 10 Oral 480 462 Other: Voiding Method Urinal Toilet Toilet # Voids 3 2 # Bowel Movements 2 General: well nourished, well developed, NAD. Vitals reviewed Eyes: PERRL, EOMI, conjunctiva normal HENT: normocephalic, mucus membranes moist Neck: supple, no JVD Lungs: normal respiratory effort, no wheezes or rales CV: Regular rate and rhythm, no murmur. Peripheral pulses 2+ Abdomen: soft, nondistended, no organomegaly Lymph: no cervical or axillary LAD Skin: warm and dry. Neuro: A&Ox3, normal mood and affect Results CBC & Chem 7: 07/22/20 11:09 07/22/20 11:09 Labs: Abnormal Lab Results - Last 24 Hours (Table) 07/23/20 07/23/20 07/23/20 Range/Units 00:14 06:13 11:53 POC Glucose (mg/dL) 129 H 135 H (75-99) mg/dL Troponin I 0.067 H* (0.000-0.034) ng/mL 07/23/20 07/23/20 Range/Units 17:14 20:24 POC Glucose (mg/dL) 125 H 189 H (75-99) mg/dL Troponin I (0.000-0.034) ng/mL Thrombosis Risk Factor Assmnt - Choose All That Apply Any of the Below Risk Factors Present?: Yes Each Factor Represents 1 point: Obesity (BMI >25) Other Risk Factors: No Other congenital or acquired thrombophilia - If yes, enter type in comment: No Thrombosis Risk Factor Assessment Total Risk Factor Score: 1 Thrombosis Risk Factor Assessment Level: Low Risk Assessment and Plan (1) Anaphylactic reaction Current Visit: Yes Status: Acute Code(s): T78.2XXA - ANAPHYLACTIC SHOCK, UNSPECIFIED, INITIAL ENCOUNTER SNOMED Code(s): 69418768 (2) Asthmatic bronchitis Current Visit: Yes Status: Acute Code(s): J45.909 - UNSPECIFIED ASTHMA, UNCOMPLICATED SNOMED Code(s): 824549983 (3) Chest pain Current Visit: Yes Status: Acute Code(s): R07.9 - CHEST PAIN, UNSPECIFIED SNOMED Code(s): 13191830 (4) Diabetes mellitus, new onset Current Visit: No Status: Acute Code(s): E11.9 - TYPE 2 DIABETES MELLITUS WITHOUT COMPLICATIONS SNOMED Code(s): 235694573 (5) Hypertension Current Visit: No Status: Acute Code(s): I10 - ESSENTIAL (PRIMARY) HYPERTENSION SNOMED Code(s): 16438899 Plan: 1. Chest pain. Cardiology following. ACS ruled out. Elevated troponin likely demand ischemia after anaphylactic reaction 2. Asthma. continue with duonebs, pt given solumedrol as well. Continue to monitor 3. T2DM. Continue accuchecks and sliding scale 4. Major depression. Continue lexapro DVT prophylaxis: lovenox
[2020-07-24] MEDS: NITROGLYCERIN OINT 1 INCH/GM PACKET TOPICAL SCH ×2 (04:24→12:47)
[2020-07-24 06:19] LABS: Glucose,Whole Blood 92 mg/dL (75-99)
[2020-07-24] MEDS: INSULIN ASPART (NovoLOG) 100 UNIT/ML VIAL SQ SCH ×2 (06:22→12:47)
[2020-07-24] MEDS: LOSARTAN 25 MG TAB PO SCH (08:49)
[2020-07-24] MEDS: ENOXAPARIN 40 MG/0.4 ML SYRINGE SQ SCH (08:49)
[2020-07-24] MEDS: METOPROLOL TARTRATE 50 MG TAB PO SCH (08:49)
[2020-07-24 08:55] VITALS: RESP 18; TEMP 97.6
[2020-07-24] MEDS: IPRATROPIUM-ALBUTEROL 3 ML NEB INHALATION SCH ×3 (09:11→16:23)
[2020-07-24 12:15] LABS: Glucose,Whole Blood 128 mg/dL (75-99)
[2020-07-24 13:51] VITALS: BP 129/71
--- NOTE | 2020-07-24 14:04 | P.PN ---
Subjective Progress Note Date: 07/24/20 The patient is lying comfortably in bed. He denies any chest pain, chest pressure, palpitations, dizziness, or lightheadedness. He states he did experience some chest tightness and shortness of breath prior to his breathing treatment, however it has now resolved. Echocardiogram revealed LV function of 55% without significant valvular abnormalities EKG shows sinus rhythm with low atrial focus GENERAL: This is a 39-year-old male in no apparent distress at the time of my examination. HEENT: Head is atraumatic, normocephalic. Pupils are equal, round. Sclerae anicteric. Conjunctivae are clear. Mucous membranes of the mouth are moist. Neck is supple. There is no jugular venous distention. No carotid bruit is heard. LUNGS: Clear to auscultation no wheezes, rales or rhonchi. No chest wall tenderness is noted on palpation or with deep breathing. HEART: Regular rate and rhythm without murmurs, rubs or gallops. S1 and S2 heard. ABDOMEN: Soft, nontender. Bowel sounds are heard. No organomegaly noted. EXTREMITIES: No evidence of peripheral edema and no calf tenderness noted. VASCULAR: Radial and dorsalis pedis pulses palpated, no evidence of clubbing. NEUROLOGIC: Patient is awake, alert and oriented x3. VITALS: 129/71, respiratory rate 18, pulse rate 71, SpO2 98 TELEMETRY: Sinus rhythm. No tachycardia or bradycardia arrhythmias. IMPRESSION #1 abnormal troponins, status post anaphylactic reaction #2 atypical chest discomfort, resolved #3 type 2 diabetes mellitus #4 hypertension #5 dyslipidemia #6 current smoker Plan: Continue current medication regimen. Patient is cleared to be discharged from the cardiac standpoint. We'll follow with him on an outpatient basis for further workup if necessary. Objective - Vital Signs Vital signs: Vital Signs Temp 97.6 F 07/24/20 08:10 Pulse 78 07/24/20 12:42 Resp 18 07/24/20 12:30 BP 129/71 07/24/20 12:30 Pulse Ox 98 07/24/20 12:30 Intake & Output 07/23/20 07/24/20 07/24/20 18:59 06:59 18:59 Intake Total 730 666 360 Balance 730 666 360 Weight 98.6 kg Intake: IV 10 0.9 10 Oral 720 666 360 Other: Voiding Method Urinal Toilet # Voids 4 1 # Bowel Movements 1 2 - Labs CBC & Chem 7: 07/22/20 11:09 07/22/20 11:09 Labs: Abnormal Lab Results - Last 24 Hours (Table) 07/23/20 07/23/20 07/24/20 Range/Units 17:14 20:24 12:12 POC Glucose (mg/dL) 125 H 189 H 128 H (75-99) mg/dL
[2020-07-24 16:33] VITALS: PULSE 76
[2020-07-24 17:16] LABS: Glucose,Whole Blood 114 mg/dL (75-99)
== END 2020-07-24 18:35 | disposition home or self-care (01) ==
LOC: EC 10:39 → 3SCARD 13:00
PROVIDERS: ADMIT Family Medicine; ATTEND Family Medicine
DX: R07.89 Other chest pain (principal); K21.9 Gastro-esophageal reflux disease without esophagitis; T88.6XXA Anaphylactic reaction due to adverse effect of correct drug or medicament properly administered, initial encounter; T38.0X5A Adverse effect of glucocorticoids and synthetic analogues, initial encounter; R77.8 Other specified abnormalities of plasma proteins; E11.9 Type 2 diabetes mellitus without complications; E78.5 Hyperlipidemia, unspecified; F32.9 Major depressive disorder, single episode, unspecified; E66.9 Obesity, unspecified; Z68.27 Body mass index [BMI] 27.0-27.9, adult; I10 Essential (primary) hypertension; R19.07 Generalized intra-abdominal and pelvic swelling, mass and lump; Z98.890 Other specified postprocedural states; Z96.22 Myringotomy tube(s) status; Z87.891 Personal history of nicotine dependence; Z82.49 Family history of ischemic heart disease and other diseases of the circulatory system; Z83.3 Family history of diabetes mellitus; Z79.4 Long term (current) use of insulin; Z79.899 Other long term (current) drug therapy; Z88.6 Allergy status to analgesic agent; J30.1 Allergic rhinitis due to pollen
CPT/HCPCS: 96372 ×3; 93005 ×2; 96374; 96375; 99291; 36415; 94640 ×5; 93306; 80061; 80053; 82550; 83735; 84484 ×2; 85025; 85610; 85730; 71045; 71275; G0378 ×3; J0171; J1200; J2930; J1650 ×2; Q9967

== ENCOUNTER 2020-09-27 07:38 | Inpatient (IN) | payer OTHER ==
[2020-09-27] MEDS ORDERED: IPRATROPIUM-ALBUTEROL 3 ML NEB INHALATION STA ×2 (08:02→09:11)
--- NOTE | 2020-09-27 08:03 | ED ---
SOB HPI - General Source: patient Mode of arrival: ambulatory Limitations: no limitations <Judith Reece - Last Filed: 09/27/20 11:04> <Juan Abreuah Robert - Last Filed: 09/30/20 00:38> - General Chief Complaint: Shortness of Breath Stated Complaint: ROSA Time Seen by Provider: 09/27/20 07:56 - History of Present Illness Initial Comments: 40-year-old male who endorses dyslipidemia hypertension, previous smoker with h istory and chart consistent with asthma presents to emergency department today for chief complaint of one month of shortness of breath that has been worsening. Patient states he's had a cough congestion and coughing up mucus with worsening shortness of breath 1 month. She states it increases with exertion. He denies leg swelling calf pain hemoptysis history of DVT or pulmonary embolism. Patient denies any history of cancer or known HIV. He denies any fevers. Patient states he has tested negative for covid twice. Patient states that he is not currently on any antibiotics. Patient states that he was evaluated for this in the past but the symptoms are still persistent. patient has no additional complaints. Upon arrival pt hypoxic. (Judith Reece) - Related Data Home Medications Medication Instructions Recorded Confirmed Atorvastatin Calcium [Lipitor] 10 mg PO HS 03/10/20 09/27/20 Escitalopram [Lexapro] 10 mg PO HS 03/10/20 09/27/20 metFORMIN HCL 1,000 mg PO BID 03/10/20 09/27/20 INSULIN LISPRO (HumaLOG) [humaLOG] See Protocol SQ AC-TID 07/22/20 09/27/20 Previous Rx's Medication Instructions Recorded Metoprolol Tartrate [Lopressor] 50 mg PO BID #60 tab 07/24/17 Albuterol Inhaler [Ventolin Hfa 2 puff INHALATION RT-QID PRN 30 07/24/20 Inhaler] Days #1 inhaler Albuterol Nebulized [Ventolin 2.5 mg INHALATION Q6H PRN 30 Days 07/24/20 Nebulized] #1 vial Losartan [Cozaar] 25 mg PO DAILY #30 tab 07/24/20 Amoxicillin/Potassium Clav 1 tab PO Q12HR 5 Days #10 tab 09/29/20 [Augmentin 875-125 Tablet] Insulin Glargine,Hum.rec.anlog 10 unit SQ HS #0 09/29/20 [Lantus Solostar] Allergies Allergy/AdvReac Type Severity Reaction Status Date / Time aspirin Allergy Rapid Verified 09/27/20 08:31 Heart Rate ibuprofen [From Motrin] Allergy Anaphylaxis Verified 09/27/20 08:31 methylprednisolone Allergy Anaphylaxis Verified 09/27/20 08:31 [From Solu-Medrol] Review of Systems ROS Other: All systems not noted in ROS Statement are negative. <Judith Reece - Last Filed: 09/27/20 11:04> ROS Other: All systems not noted in ROS Statement are negative. <Ai Abreu - Last Filed: 09/30/20 00:38> ROS Statement: Those systems with pertinent positive or pertinent negative responses have been documented in the HPI. Past Medical History Past Medical History: Diabetes Mellitus, GERD/Reflux, Hyperlipidemia, Hypertension Additional Past Medical History / Comment(s): NIDDM type II-diagnosed 02/2020, seasonal allergies, cyst in L abdomin and sternum area. History of Any Multi-Drug Resistant Organisms: None Reported Additional Past Surgical History / Comment(s): EGD, bilateral myringotomy/tubes, nasal polypectomy/turbinate reduction, wisdom teeth extractions. Past Anesthesia/Blood Transfusion Reactions: No Reported Reaction Additional Past Anesthesia/Blood Transfusion Reaction / Comment(s): c/o dizziness when waking up. Past Psychological History: No Psychological Hx Reported Smoking Status: Former smoker Past Alcohol Use History: Occasional Past Drug Use History: Marijuana - Past Family History Mother Family Medical History: No Reported History Additional Family Medical History / Comment(s): Mother is healthy Father Family Medical History: Coronary Artery Disease (CAD), Diabetes Mellitus, Myocardial Infarction ([place]) Additional Family Medical History / Comment(s): Father had his first of three MIs at the age of 49 yrs. He has had multiple cardiac stents <Judith Reece - Last Filed: 09/27/20 11:04> General Exam Limitations: no limitations <Judith Reece - Last Filed: 09/27/20 11:04> - General Exam Comments Initial Comments: General: The patient is awake and alert, in no distress Eye: +3 mm pupils are equal, round and reactive to light, extra-ocular movements are intact. No nystagmus. There is normal conjunctiva bilaterally. No signs of icterus. Ears, nose, mouth and throat: There are moist mucous membranes and no oral lesions. Neck: The neck is supple, there is no tenderness or JVD. Cardiovascular: There is a regular rate and rhythm. No murmur, rub or gallop is appreciated. Respiratory: Lungs are clear to auscultation, respirations are non-labored, breath sounds are equal. Inspiratory and expiratory wheeze, no stridor, rales, or rhonchi. Musculoskeletal: Normal ROM, no tenderness. Strength 5/5. Sensation intact. Radial pulses equal bilaterally 2+. Neurological: A&O x 3. CN II-XII intact grossly, There are no obvious motor or sensory deficits. Coordination appears grossly intact. Speech is normal. Skin: Skin is warm and dry and no rashes or lesions are noted. No LE edema. Psychiatric: Cooperative, appropriate mood & affect, normal judgment. (Judith Reece) Course <Judith Reece - Last Filed: 09/27/20 11:04> Vital Signs 09/27/20 09/27/20 09/27/20 07:50 08:30 08:36 Temperature 98.9 F Pulse Rate 91 89 Respiratory 20 18 Rate Blood Pressure 101/68 99/75 O2 Sat by Pulse 91 L 91 L Oximetry 09/27/20 09/27/20 09/27/20 08:48 09:27 09:30 Temperature Pulse Rate 91 85 85 Respiratory 16 Rate Blood Pressure 92/72 O2 Sat by Pulse 97 Oximetry 09/27/20 09/27/20 09/27/20 09:41 10:00 10:58 Temperature Pulse Rate 87 87 81 Respiratory 16 Rate Blood Pressure 102/68 O2 Sat by Pulse 92 L Oximetry 09/27/20 09/27/20 09/27/20 11:08 11:47 12:57 Temperature Pulse Rate 82 90 89 Respiratory 18 18 Rate Blood Pressure 99/68 99/64 O2 Sat by Pulse 94 L 92 L Oximetry 09/27/20 09/27/20 09/27/20 14:20 15:23 15:59 Temperature Pulse Rate 81 88 110 H Respiratory 18 18 Rate Blood Pressure 93/62 96/70 O2 Sat by Pulse 92 L 92 L Oximetry 09/27/20 09/27/20 09/27/20 16:13 16:30 17:51 Temperature 98.2 F Pulse Rate 105 H 106 H 97 Respiratory 18 18 Rate Blood Pressure 112/79 108/69 O2 Sat by Pulse 92 L 90 L Oximetry 09/27/20 18:10 Temperature Pulse Rate Respiratory Rate Blood Pressure O2 Sat by Pulse 92 L Oximetry - Reevaluation(s) Reevaluation #1: after 2 treatment pt has some improvement, expiratory wheeze still present. 09/27/20 10:50 (Judith Reece) Medical Decision Making - Lab Data Result diagrams: 09/27/20 08:00 09/27/20 08:00 <Judith Reece - Last Filed: 09/27/20 11:04> - Lab Data Result diagrams: 09/27/20 08:00 09/27/20 08:00 <Ai Abreu - Last Filed: 09/30/20 00:38> - Medical Decision Making Labs stable. pt hypoxic. he is 93% on 3L. Lung exam improved moderately after 2 treatment. now only expiratory wheeze, pt states he is starting to feel better. CTA (-) PE. Groundglass infiltrates appreciated. Mucous plugging appreciated. Patient covid (-). allergy to steroids. pt will be admitted for IV antibiotics. Pulmonology consultation. DR. Abreu is agreeable to this care plan and admission. (Judith eRece) I was available for consultation in the emergency department. The history and physical exam were done by the midlevel provider. I was consulted for this patients care. I reviewed the case with the midlevel provider and based on their presentation of the patient, I agree with the assessment, medical decision making and plan of care as documented. Chart was dictated using Familiar dictation software. Attempts were made to correct any dictation errors however some typographical errors may persist. Patient was seen during a national state of emergency due to the Covid-19 pandemic. (Ai Abreu) - Lab Data Lab Results 09/27/20 09/27/20 09/27/20 Range/Units 08:00 08:00 08:00 WBC 8.0 (3.8-10.6) k/uL RBC 5.78 (4.30-5.90) m/uL Hgb 17.6 H (13.0-17.5) gm/dL Hct 52.2 (39.0-53.0) % MCV 90.3 (80.0-100.0) fL MCH 30.5 (25.0-35.0) pg MCHC 33.8 (31.0-37.0) g/dL RDW 12.7 (11.5-15.5) % Plt Count 289 (150-450) k/uL MPV 7.5 Neutrophils % 59 % Lymphocytes % 22 % Monocytes % 6 % Eosinophils % 10 % Basophils % 2 % Neutrophils # 4.8 (1.3-7.7) k/uL Lymphocytes # 1.7 (1.0-4.8) k/uL Monocytes # 0.5 (0-1.0) k/uL Eosinophils # 0.8 H (0-0.7) k/uL Basophils # 0.1 (0-0.2) k/uL PT 10.4 (9.0-12.0) sec INR 1.0 (<1.2) APTT 24.2 (22.0-30.0) sec D-Dimer 0.56 (<0.60) mg/L FEU Sodium 137 (137-145) mmol/L Potassium 4.1 (3.5-5.1) mmol/L Chloride 99 (98-107) mmol/L Carbon Dioxide 27 (22-30) mmol/L Anion Gap 11 mmol/L BUN 30 H (9-20) mg/dL Creatinine 1.09 (0.66-1.25) mg/dL Est GFR (CKD-EPI)AfAm >90 (>60 ml/min/1.73 sqM) Est GFR (CKD-EPI)NonAf 86 (>60 ml/min/1.73 sqM) Glucose 139 H (74-99) mg/dL POC Glucose (mg/dL) (75-99) mg/dL POC Glu Cadd Operator ID Plasma Lactic Acid Prem (0.7-2.0) mmol/L Calcium 9.5 (8.4-10.2) mg/dL Magnesium 2.0 (1.6-2.3) mg/dL Total Bilirubin 0.7 (0.2-1.3) mg/dL AST 28 (17-59) U/L ALT 24 (4-49) U/L Alkaline Phosphatase 70 (38-126) U/L Troponin I (0.000-0.034) ng/mL NT-Pro-B Natriuret Pep pg/mL Total Protein 7.8 (6.3-8.2) g/dL Albumin 4.5 (3.5-5.0) g/dL Urine Color Urine Appearance (Clear) Urine pH (5.0-8.0) Ur Specific [place] (1.001-1.035) Urine Protein (Negative) Urine Glucose (UA) (Negative) Urine Ketones (Negative) Urine Blood (Negative) Urine Nitrite (Negative) Urine Bilirubin (Negative) Urine Urobilinogen (<2.0) mg/dL Ur Leukocyte Esterase (Negative) Urine RBC (0-5) /hpf Urine WBC (0-5) /hpf Ur Squamous Epith Cells (0-4) /hpf Urine Mucus (None) /hpf Coronavirus (PCR) (Not Detectd) HIV-1 Antibody (Non-Reactive) HIV Ag/Ab Interpret HIV p24 Antibody (Non-Reactive) HIV-2 Antibody (Non-Reactive) HIV P24 Antigen (Non-Reactive) 09/27/20 09/27/20 09/27/20 Range/Units 08:00 08:00 08:00 WBC (3.8-10.6) k/uL RBC (4.30-5.90) m/uL Hgb (13.0-17.5) gm/dL Hct (39.0-53.0) % MCV (80.0-100.0) fL MCH (25.0-35.0) pg MCHC (31.0-37.0) g/dL RDW (11.5-15.5) % Plt Count (150-450) k/uL MPV Neutrophils % % Lymphocytes % % Monocytes % % Eosinophils % % Basophils % % Neutrophils # (1.3-7.7) k/uL Lymphocytes # (1.0-4.8) k/uL Monocytes # (0-1.0) k/uL Eosinophils # (0-0.7) k/uL Basophils # (0-0.2) k/uL PT (9.0-12.0) sec INR (<1.2) APTT (22.0-30.0) sec D-Dimer (<0.60) mg/L FEU Sodium (137-145) mmol/L Potassium (3.5-5.1) mmol/L Chloride (98-107) mmol/L Carbon Dioxide (22-30) mmol/L Anion Gap mmol/L BUN (9-20) mg/dL Creatinine (0.66-1.25) mg/dL Est GFR (CKD-EPI)AfAm (>60 ml/min/1.73 sqM) Est GFR (CKD-EPI)NonAf (>60 ml/min/1.73 sqM) Glucose (74-99) mg/dL POC Glucose (mg/dL) (75-99) mg/dL POC Glu Cadd Operator ID Plasma Lactic Acid Prem 1.1 (0.7-2.0) mmol/L Calcium (8.4-10.2) mg/dL Magnesium (1.6-2.3) mg/dL Total Bilirubin (0.2-1.3) mg/dL AST (17-59) U/L ALT (4-49) U/L Alkaline Phosphatase (38-126) U/L Troponin I <0.012 (0.000-0.034) ng/mL NT-Pro-B Natriuret Pep 13 pg/mL Total Protein (6.3-8.2) g/dL Albumin (3.5-5.0) g/dL Urine Color Urine Appearance (Clear) Urine pH (5.0-8.0) Ur Specific [place] (1.001-1.035) Urine Protein (Negative) Urine Glucose (UA) (Negative) Urine Ketones (Negative) Urine Blood (Negative) Urine Nitrite (Negative) Urine Bilirubin (Negative) Urine Urobilinogen (<2.0) mg/dL Ur Leukocyte Esterase (Negative) Urine RBC (0-5) /hpf Urine WBC (0-5) /hpf Ur Squamous Epith Cells (0-4) /hpf Urine Mucus (None) /hpf Coronavirus (PCR) (Not Detectd) HIV-1 Antibody (Non-Reactive) HIV Ag/Ab Interpret HIV p24 Antibody (Non-Reactive) HIV-2 Antibody (Non-Reactive) HIV P24 Antigen (Non-Reactive) 09/27/20 09/27/20 09/27/20 Range/Units 08:00 08:00 09:13 WBC (3.8-10.6) k/uL RBC (4.30-5.90) m/uL Hgb (13.0-17.5) gm/dL Hct (39.0-53.0) % MCV (80.0-100.0) fL MCH (25.0-35.0) pg MCHC (31.0-37.0) g/dL RDW (11.5-15.5) % Plt Count (150-450) k/uL MPV Neutrophils % % Lymphocytes % % Monocytes % % Eosinophils % % Basophils % % Neutrophils # (1.3-7.7) k/uL Lymphocytes # (1.0-4.8) k/uL Monocytes # (0-1.0) k/uL Eosinophils # (0-0.7) k/uL Basophils # (0-0.2) k/uL PT (9.0-12.0) sec INR (<1.2) APTT (22.0-30.0) sec D-Dimer (<0.60) mg/L FEU Sodium (137-145) mmol/L Potassium (3.5-5.1) mmol/L Chloride (98-107) mmol/L Carbon Dioxide (22-30) mmol/L Anion Gap mmol/L BUN (9-20) mg/dL Creatinine (0.66-1.25) mg/dL Est GFR (CKD-EPI)AfAm (>60 ml/min/1.73 sqM) Est GFR (CKD-EPI)NonAf (>60 ml/min/1.73 sqM) Glucose (74-99) mg/dL POC Glucose (mg/dL) (75-99) mg/dL POC Glu Cadd Operator ID Plasma Lactic Acid Prem (0.7-2.0) mmol/L Calcium (8.4-10.2) mg/dL Magnesium (1.6-2.3) mg/dL Total Bilirubin (0.2-1.3) mg/dL AST (17-59) U/L ALT (4-49) U/L Alkaline Phosphatase (38-126) U/L Troponin I (0.000-0.034) ng/mL NT-Pro-B Natriuret Pep pg/mL Total Protein (6.3-8.2) g/dL Albumin (3.5-5.0) g/dL Urine Color Yellow Urine Appearance Cloudy (Clear) Urine pH 5.0 (5.0-8.0) Ur Specific [place] 1.022 (1.001-1.035) Urine Protein Negative (Negative) Urine Glucose (UA) Negative (Negative) Urine Ketones Negative (Negative) Urine Blood Trace H (Negative) Urine Nitrite Negative (Negative) Urine Bilirubin Negative (Negative) Urine Urobilinogen <2.0 (<2.0) mg/dL Ur Leukocyte Esterase Negative (Negative) Urine RBC 1 (0-5) /hpf Urine WBC 2 (0-5) /hpf Ur Squamous Epith Cells <1 (0-4) /hpf Urine Mucus Many H (None) /hpf Coronavirus (PCR) Not Detected (Not Detectd) HIV-1 Antibody Non-Reactive (Non-Reactive) HIV Ag/Ab Interpret HIV p24 Antibody Non-Reactive (Non-Reactive) HIV-2 Antibody Non-Reactive (Non-Reactive) HIV P24 Antigen Non-Reactive (Non-Reactive) 09/28/20 09/28/20 09/28/20 Range/Units 06:42 11:29 17:10 WBC (3.8-10.6) k/uL RBC (4.30-5.90) m/uL Hgb (13.0-17.5) gm/dL Hct (39.0-53.0) % MCV (80.0-100.0) fL MCH (25.0-35.0) pg MCHC (31.0-37.0) g/dL RDW (11.5-15.5) % Plt Count (150-450) k/uL MPV Neutrophils % % Lymphocytes % % Monocytes % % Eosinophils % % Basophils % % Neutrophils # (1.3-7.7) k/uL Lymphocytes # (1.0-4.8) k/uL Monocytes # (0-1.0) k/uL Eosinophils # (0-0.7) k/uL Basophils # (0-0.2) k/uL PT (9.0-12.0) sec INR (<1.2) APTT (22.0-30.0) sec D-Dimer (<0.60) mg/L FEU Sodium (137-145) mmol/L Potassium (3.5-5.1) mmol/L Chloride (98-107) mmol/L Carbon Dioxide (22-30) mmol/L Anion Gap mmol/L BUN (9-20) mg/dL Creatinine (0.66-1.25) mg/dL Est GFR (CKD-EPI)AfAm (>60 ml/min/1.73 sqM) Est GFR (CKD-EPI)NonAf (>60 ml/min/1.73 sqM) Glucose (74-99) mg/dL POC Glucose (mg/dL) 145 H 111 H 122 H (75-99) mg/dL POC Glu Cadd Operator ID Rosanna, Oanh Rosanna, Oanh Plasma Lactic Acid Prem (0.7-2.0) mmol/L Calcium (8.4-10.2) mg/dL Magnesium (1.6-2.3) mg/dL Total Bilirubin (0.2-1.3) mg/dL AST (17-59) U/L ALT (4-49) U/L Alkaline Phosphatase (38-126) U/L Troponin I (0.000-0.034) ng/mL NT-Pro-B Natriuret Pep pg/mL Total Protein (6.3-8.2) g/dL Albumin (3.5-5.0) g/dL Urine Color Urine Appearance (Clear) Urine pH (5.0-8.0) Ur Specific [place] (1.001-1.035) Urine Protein (Negative) Urine Glucose (UA) (Negative) Urine Ketones (Negative) Urine Blood (Negative) Urine Nitrite (Negative) Urine Bilirubin (Negative) Urine Urobilinogen (<2.0) mg/dL Ur Leukocyte Esterase (Negative) Urine RBC (0-5) /hpf Urine WBC (0-5) /hpf Ur Squamous Epith Cells (0-4) /hpf Urine Mucus (None) /hpf Coronavirus (PCR) (Not Detectd) HIV-1 Antibody (Non-Reactive) HIV Ag/Ab Interpret HIV p24 Antibody (Non-Reactive) HIV-2 Antibody (Non-Reactive) HIV P24 Antigen (Non-Reactive) 09/28/20 09/29/20 Range/Units 21:21 06:20 WBC (3.8-10.6) k/uL RBC (4.30-5.90) m/uL Hgb (13.0-17.5) gm/dL Hct (39.0-53.0) % MCV (80.0-100.0) fL MCH (25.0-35.0) pg MCHC (31.0-37.0) g/dL RDW (11.5-15.5) % Plt Count (150-450) k/uL MPV Neutrophils % % Lymphocytes % % Monocytes % % Eosinophils % % Basophils % % Neutrophils # (1.3-7.7) k/uL Lymphocytes # (1.0-4.8) k/uL Monocytes # (0-1.0) k/uL Eosinophils # (0-0.7) k/uL Basophils # (0-0.2) k/uL PT (9.0-12.0) sec INR (<1.2) APTT (22.0-30.0) sec D-Dimer (<0.60) mg/L FEU Sodium (137-145) mmol/L Potassium (3.5-5.1) mmol/L Chloride (98-107) mmol/L Carbon Dioxide (22-30) mmol/L Anion Gap mmol/L BUN (9-20) mg/dL Creatinine (0.66-1.25) mg/dL Est GFR (CKD-EPI)AfAm (>60 ml/min/1.73 sqM) Est GFR (CKD-EPI)NonAf (>60 ml/min/1.73 sqM) Glucose (74-99) mg/dL POC Glucose (mg/dL) 168 H 137 H (75-99) mg/dL POC Glu Cadd Operator Khushi Peters Allison Plasma Lactic Acid Prem (0.7-2.0) mmol/L Calcium (8.4-10.2) mg/dL Magnesium (1.6-2.3) mg/dL Total Bilirubin (0.2-1.3) mg/dL AST (17-59) U/L ALT (4-49) U/L Alkaline Phosphatase (38-126) U/L Troponin I (0.000-0.034) ng/mL NT-Pro-B Natriuret Pep pg/mL Total Protein (6.3-8.2) g/dL Albumin (3.5-5.0) g/dL Urine Color Urine Appearance (Clear) Urine pH (5.0-8.0) Ur Specific [place] (1.001-1.035) Urine Protein (Negative) Urine Glucose (UA) (Negative) Urine Ketones (Negative) Urine Blood (Negative) Urine Nitrite (Negative) Urine Bilirubin (Negative) Urine Urobilinogen (<2.0) mg/dL Ur Leukocyte Esterase (Negative) Urine RBC (0-5) /hpf Urine WBC (0-5) /hpf Ur Squamous Epith Cells (0-4) /hpf Urine Mucus (None) /hpf Coronavirus (PCR) (Not Detectd) HIV-1 Antibody (Non-Reactive) HIV Ag/Ab Interpret HIV p24 Antibody (Non-Reactive) HIV-2 Antibody (Non-Reactive) HIV P24 Antigen (Non-Reactive) Disposition Is patient prescribed a controlled substance at d/c from ED?: No Time of Disposition: 10:54 Decision to Admit Reason: Admit from EC Decision Date: 09/27/20 Decision Time: 10:54 <Judith Reece - Last Filed: 09/27/20 11:04> <Ai Abreu - Last Filed: 09/30/20 00:38> Clinical Impression: Ground glass opacity present on imaging of lung, Hypoxia, Reactive airway disease, Dyspnea, Mucus plugging of bronchi Disposition: ADMITTED IP TO THIS HOSP Condition: Stable
[2020-09-27 08:33] LABS: Basophils # (A) 0.1 k/uL (0-0.2); Basophils % (A) 2 %; Eosinophils # (A) 0.8 k/uL (0-0.7); Eosinophils % (A) 10 %; HCT 52.2 % (39.0-53.0); HGB 17.6 gm/dL (13.0-17.5); Lymphocytes # (A) 1.7 k/uL (1.0-4.8); Lymphocytes % (A) 22 %; MCH 30.5 pg (25.0-35.0); MCHC 33.8 g/dL (31.0-37.0); MCV 90.3 fL (80.0-100.0); Mean Platelet Volume 7.5; Monocytes # (A) 0.5 k/uL (0-1.0); Monocytes % (A) 6 %; Neutrophils # (A) 4.8 k/uL (1.3-7.7); Neutrophils % (A) 59 %; Platelet Count 289 k/uL (150-450); RBC 5.78 m/uL (4.30-5.90); RDW 12.7 % (11.5-15.5)
[2020-09-27 08:41] LABS: ALT 24 U/L (4-49); AST 28 U/L (17-59); African American GFR (CKD) >90 (>60 ml/min/1.73 sqM); Albumin 4.5 g/dL (3.5-5.0); Alkaline Phosphatase 70 U/L (38-126); Anion Gap 11 mmol/L; Blood Urea Nitrogen 30 mg/dL (9-20); Calcium 9.5 mg/dL (8.4-10.2); Carbon Dioxide 27 mmol/L (22-30); Chloride 99 mmol/L (98-107); Glucose 139 mg/dL (74-99); Non-African American GFR(CKD) 86 (>60 ml/min/1.73 sqM); Potassium 4.1 mmol/L (3.5-5.1); Sodium 137 mmol/L (137-145); Total Bilirubin 0.7 mg/dL (0.2-1.3); Total Protein 7.8 g/dL (6.3-8.2)
[2020-09-27 08:50] LABS: Partial Thromboplastin Time 24.2 sec (22.0-30.0); Prothrombin Time 10.4 sec (9.0-12.0)
--- NOTE | 2020-09-27 09:09 | XR ---
EXAMINATION TYPE: XR chest 2V DATE OF EXAM: 09/27/2020 COMPARISON: CTA chest and chest x-ray July 22, 2020 HISTORY: Difficulty in breathing. TECHNIQUE: Frontal and lateral views of the chest are obtained. FINDINGS: There is no focal air space opacity, pleural effusion, or pneumothorax seen. The cardiac silhouette size is within normal limits. The osseous structures are intact. IMPRESSION: No acute cardiopulmonary process. No significant change from prior studies.
[2020-09-27 09:32] LABS: Appearance,Urine Cloudy (Clear); Bilirubin,Urine Negative (Negative); Blood,Urine Trace (Negative); Color,Urine Yellow; Glucose,Urine (UA) Negative (Negative); Ketones,Urine Negative (Negative); Leukocyte Esterase,Urine Negative (Negative); Mucus,Urine Many /hpf; Nitrite,Urine Negative (Negative); Protein,Urine Negative (Negative); RBC,Urine 1 /hpf (0-5); Specific Gravity,Urine 1.022 (1.001-1.035); Squamous Epithelial Cell,Urine <1 /hpf (0-4); Urobilinogen,Urine <2.0 mg/dL (<2.0); WBC,Urine 2 /hpf (0-5)
--- NOTE | 2020-09-27 10:04 | CT ---
EXAMINATION TYPE: CT chest angio for PE DATE OF EXAM: 09/27/2020 COMPARISON: CT chest dated 07/22/2020. HISTORY: Shortness of breath, Chest pains CT DLP: 373.6 mGycm Automated exposure control for dose reduction was used. CONTRAST: CT Chest for pulmonary embolism performed with with IV Contrast, patient injected with 100 mL of Isov ue 370. FINDINGS: LUNGS: Patchy reticulonodular opacities in the periphery of the left lower lobe. There are more promi nent reticulonodular groundglass opacities in the right lower lobe with area of organizing consolidat ion axial image 113. There is mild to moderate peribronchial wall thickening on current study greates t in the bilateral lower lobes with some lower lung mucous plugging. Some respiratory motion artifact examination as patient unable to hold breath. New 11 x 8 mm groundglass nodule or nodular consolida tion posterior medial right upper lobe axial image 39. New 5 x 4 mm right mid lung nodule anteriorly image 76. No pleural effusion or pneumothorax. MEDIASTINAL: There is satisfactory enhancement of the pulmonary artery and its branches, there is no CT evidence for pulmonary embolism. There were enlarged right greater than left bilateral hilar lymp h nodes. There are more prominent but borderline mediastinal lymph nodes. No cardiomegaly and/or teodoro cardial effusion is seen. OTHER: Slight underlying scoliotic curvature. IMPRESSION: 1. No CT evidence for acute pulmonary embolism. 2. Persistent [id number] peribronchial wall thickening with mucous plugging in the lower lungs, new right greater than left lower lobe infiltrates. Correlate for acute infectious process. Worsenin g thoracic adenopathy greatest in the right hilar region. Follow-up advised after treatment.
[2020-09-27] MEDS ORDERED: AZITHROMYCIN 500 MG in SODIUM CHLORIDE 0.9% 250 ML IVPB STA (10:07)
[2020-09-27] MEDS ORDERED: ALBUTEROL NEBULIZED 2.5 MG/3 ML INHALATION STA (10:08)
[2020-09-27] MEDS ORDERED: NALOXONE 0.4 MG/ML 1 ML VIAL IV PRN (10:13)
[2020-09-27] MEDS ORDERED: MAGNESIUM SULFATE-D5W PMX 1 GM in DEXTROSE/WATER 1 100ML.BAG IVPB ONE (10:32)
[2020-09-27] MEDS ORDERED: IPRATROPIUM-ALBUTEROL 3 ML NEB INHALATION PRN (10:50)
[2020-09-27] MEDS: IPRATROPIUM-ALBUTEROL 3 ML NEB INHALATION SCH ×4 (10:58→23:30)
[2020-09-27 21:48] LABS: HIV 2 AB Non-Reactive (Non-Reactive); HIV AB P24 Non-Reactive (Non-Reactive); HIV P24 AG Non-Reactive (Non-Reactive)
[2020-09-28] MEDS: IPRATROPIUM-ALBUTEROL 3 ML NEB INHALATION SCH ×6 (05:15→23:34)
[2020-09-28 06:43] LABS: Glucose,Whole Blood 145 mg/dL (75-99)
[2020-09-28] MEDS: INSULIN ASPART (NovoLOG) 100 UNIT/ML VIAL SQ SCH ×4 (08:45→21:30)
[2020-09-28] MEDS: AZITHROMYCIN 250 MG TAB PO SCH (08:49)
[2020-09-28] MEDS: METOPROLOL TARTRATE 50 MG TAB PO SCH ×2 (08:49→21:30)
[2020-09-28] MEDS: INSULIN DETEMIR (LEVEMIR) 100 UNIT/ML SYR SQ SCH (08:50)
[2020-09-28] MEDS: LOSARTAN 25 MG TAB PO SCH (08:50)
[2020-09-28 11:30] LABS: Glucose,Whole Blood 111 mg/dL (75-99)
--- NOTE | 2020-09-28 12:52 | P.CNPUL ---
History of Present Illness Consult date: 09/28/20 Reason for consult: pneumonia Chief complaint: Cough and shortness of breath History of present illness: This is a 40-year-old white male with history of hypertension, depression, previous smoker, patient presented to the ER with 1 month history of cough, shortness of breath, cough is productive with whitish phlegm, and he had intermittent episodes of cough induced syncope. CT angiogram of the chest done on this admission showed no evidence of pulmonary embolism, however there was evidence of [id number] peribronchial wall thickening, mucous plugging in lower lungs, and a right lower lobe infiltrate. There is also some reactive lymphadenopathy noted. No fever was documented on this admission, he had a T- max of 98.9, there was no evidence of leukocytosis. And his PCR for COVID 19 was negative. Patient was started on antibiotics for presumptive community- acquired pneumonia, and I was asked to see him on consultation. Patient was admitted to the hospital about 2 months ago, and at that time the patient had abnormal cardiac enzymes, atypical chest discomfort, seen by cardiology on consultation, and the recommendation was to maintain patient on metoprolol and losartan for poorly controlled blood pressure. Review of Systems Constitutional: Patient reports no fever, no weight loss, but he does have generalized weakness Eyes: denies blurred vision, denies pain Ears, nose, mouth and throat: Denies headache, Denies sore throat Cardiovascular: Symptoms of syncope, mostly cough induced. Respiratory: As noted in HPI. Gastrointestinal: Denies abdominal pain, Denies diarrhea, Denies nausea, Denies vomiting Musculoskeletal: Denies myalgias Integumentary: Denies pruritus, Denies rash Neurological: Denies numbness, Denies weakness Psychiatric: Denies anxiety, Denies depression Endocrine: Denies any heat or cold intolerance. Past Medical History Past Medical History: Diabetes Mellitus, GERD/Reflux, Hyperlipidemia, Hypertension Additional Past Medical History / Comment(s): NIDDM type II-diagnosed 02/2020, seasonal allergies, cyst in L abdomin and sternum area. History of Any Multi-Drug Resistant Organisms: None Reported Additional Past Surgical History / Comment(s): EGD, bilateral myringotomy/tubes, nasal polypectomy/turbinate reduction, wisdom teeth extractions. Past Anesthesia/Blood Transfusion Reactions: No Reported Reaction Additional Past Anesthesia/Blood Transfusion Reaction / Comment(s): c/o dizziness when waking up. Past Psychological History: No Psychological Hx Reported Additional Psychological History / Comment(s): Pt resides with his spouse. He is independent. He served in the [employer]. Smoking Status: Former smoker Past Alcohol Use History: Occasional Additional Past Alcohol Use History / Comment(s): STARTED SMOKING AT AGE 20(1999) AND QUIT 2013 SMOKED 4 CIG PER DAY Past Drug Use History: Marijuana - Past Family History Mother Family Medical History: No Reported History Additional Family Medical History / Comment(s): Mother is healthy Father Family Medical History: Coronary Artery Disease (CAD), Diabetes Mellitus, Myocardial Infarction ([place]) Additional Family Medical History / Comment(s): Father had his first of three M Is at the age of 49 yrs. He has had multiple cardiac stents Medications and Allergies Home Medications Medication Instructions Recorded Confirmed Type Metoprolol Tartrate [Lopressor] 50 mg PO BID #60 tab 07/24/17 09/27/20 Rx Atorvastatin Calcium [Lipitor] 10 mg PO HS 03/10/20 09/27/20 History Escitalopram [Lexapro] 10 mg PO HS 03/10/20 09/27/20 History metFORMIN HCL 1,000 mg PO BID 03/10/20 09/27/20 History INSULIN LISPRO (HumaLOG) [humaLOG] See Protocol SQ AC-TID 07/22/20 09/27/20 History Insulin Glargine,Hum.rec.anlog 25 unit SQ HS 07/22/20 09/27/20 History [Lantus Solostar] Albuterol Inhaler [Ventolin Hfa 2 puff INHALATION RT-QID PRN 30 07/24/20 09/27/20 Rx Inhaler] Days #1 inhaler Albuterol Nebulized [Ventolin 2.5 mg INHALATION Q6H PRN 30 Days 07/24/20 09/27/20 Rx Nebulized] #1 vial Losartan [Cozaar] 25 mg PO DAILY #30 tab 07/24/20 09/27/20 Rx Allergies Allergy/AdvReac Type Severity Reaction Status Date / Time aspirin Allergy Rapid Verified 09/27/20 08:31 Heart Rate ibuprofen [From Motrin] Allergy Anaphylaxis Verified 09/27/20 08:31 methylprednisolone Allergy Anaphylaxis Verified 09/27/20 08:31 [From Solu-Medrol] Physical Exam Vitals: Vital Signs Temp Pulse Pulse Resp BP BP Pulse Ox 01/05/21 11:33 107 H 09/28/20 11:23 103 H 09/28/20 08:13 96.5 F L 110 H 18 112/79 94 L 09/28/20 07:45 101 H 09/28/20 07:33 105 H 09/28/20 02:15 97.8 F 103 H 121/74 09/27/20 23:41 104 H 09/27/20 23:30 105 H 09/27/20 20:50 98.8 F 106 H 119/73 91 L 09/27/20 20:41 100 09/27/20 20:29 100 09/27/20 18:10 92 L 09/27/20 17:51 98.2 F 97 18 108/69 90 L 09/27/20 16:30 106 H 18 112/79 92 L 09/27/20 16:13 105 H 09/27/20 15:59 110 H 09/27/20 15:23 88 18 96/70 92 L 09/27/20 14:20 81 18 93/62 92 L 09/27/20 12:57 89 18 99/64 92 L Intake and Output 09/27/20 09/28/20 09/28/20 22:59 06:59 14:59 Intake Total 300 Balance 300 Intake: Oral 300 Other: Voiding Method Toilet Toilet # Voids 0 Weight 101.151 kg Physical Exam: Revealed 40-year-old white male in no distress. Head: Atraumatic, normocephalic. HEENT:[Neck is supple.] [No neck masses.] [No thyromegaly.] [No JVD.] Chest: [Symmetrical chest expansion, crackles at the right base. Cardiac Exam: [Normal S1 and S2, no S3 gallop, no murmur.] Abdomen: [Soft, nontender, no megaly, no rebound, no guarding, normal bowel sounds.] Extremities: [No clubbing, no edema, no cyanosis.] Neurological Exam: [No focal neurologic deficit.] Alert oriented 3. Psychiatric: Normal mood, affect and normal mental status examination. HEENT: No rashes. Results - Laboratory Findings CBC and BMP: 09/27/20 08:00 09/27/20 08:00 PT/INR, D-dimer PT 10.4 sec (9.0-12.0) 09/27/20 08:00 INR 1.0 (<1.2) 09/27/20 08:00 D-Dimer 0.56 mg/L FEU (<0.60) 09/27/20 08:00 Abnormal lab findings: Abnormal Labs 09/27/20 09/27/20 09/27/20 08:00 08:00 09:13 Hgb 17.6 H Eosinophils # 0.8 H BUN 30 H Glucose 139 H POC Glucose (mg/dL) Urine Blood Trace H Urine Mucus Many H 09/28/20 09/28/20 06:42 11:29 Hgb Eosinophils # BUN Glucose POC Glucose (mg/dL) 145 H 111 H Urine Blood Urine Mucus - Diagnostic Findings CT scan - chest: image reviewed (I have noted in HPI.) Assessment and Plan Assessment: Impression: Acute hypoxic respiratory failure secondary to acute community-acquired pneumonia mostly involving the right lower lobe. Cough induced syncope. Benign essential hypertension. Type 2 diabetes. GERD without esophagitis. Seasonal ALLERGIC rhinitis. Dyslipidemia. Recommendation: Continue present course of antibiotics. Continue bronchodilators. Consider discharge planning in the next 24 hours. We'll continue to follow Time with Patient: Greater than 30
[2020-09-28 17:12] LABS: Glucose,Whole Blood 122 mg/dL (75-99)
--- NOTE | 2020-09-28 20:40 | P.HPIM ---
History of Present Illness H&P Date: 09/28/20 Chief Complaint: shortness of breath Jad Tariq is a 40 yo M with PMH of HTN, hx COVID about 6 months ago, former smoker who presented to the ED complaining of shortness of breath and episodes of coughing so hard he has passed out. He states that over the past month and last week especially he has been coughing and feeling chest tightness, he has coughed to the point he blacked out most recently the day prior to admission. He denies fever or chills. He feels his breathing had been an issue ever since he was admitted a few months ago and had a negative reaction with solumedrol. On presentation, vitals stable, SpO2 91% on RA, labs overall unremarkable. CT chest did show RLL infiltrate and mucus plugging. Review of Systems All systems: negative Constitutional: Reports malaise, Denies chills, Denies fever Eyes: denies blurred vision, denies pain Ears, nose, mouth and throat: Denies headache, Denies sore throat Cardiovascular: Reports dyspnea on exertion, Reports palpitations, Denies chest pain, Denies shortness of breath Respiratory: Reports cough, Reports dyspnea Gastrointestinal: Denies abdominal pain, Denies diarrhea, Denies nausea, Denies vomiting Musculoskeletal: Denies myalgias Integumentary: Denies pruritus, Denies rash Neurological: Denies numbness, Denies weakness Psychiatric: Denies anxiety, Denies depression Endocrine: Denies fatigue, Denies weight change Past Medical History Past Medical History: Diabetes Mellitus, GERD/Reflux, Hyperlipidemia, Hypertension Additional Past Medical History / Comment(s): NIDDM type II-diagnosed 02/2020, seasonal allergies, cyst in L abdomin and sternum area. History of Any Multi-Drug Resistant Organisms: None Reported Additional Past Surgical History / Comment(s): EGD, bilateral myringotomy/tubes, nasal polypectomy/turbinate reduction, wisdom teeth extractions. Past Anesthesia/Blood Transfusion Reactions: No Reported Reaction Additional Past Anesthesia/Blood Transfusion Reaction / Comment(s): c/o dizziness when waking up. Past Psychological History: No Psychological Hx Reported Additional Psychological History / Comment(s): Pt resides with his spouse. He is independent. He served in the [employer]. Smoking Status: Former smoker Past Alcohol Use History: Occasional Additional Past Alcohol Use History / Comment(s): STARTED SMOKING AT AGE 20(1999) AND QUIT 2013 SMOKED 4 CIG PER DAY Past Drug Use History: Marijuana - Past Family History Mother Family Medical History: No Reported History Additional Family Medical History / Comment(s): Mother is healthy Father Family Medical History: Coronary Artery Disease (CAD), Diabetes Mellitus, Myocardial Infarction ([place]) Additional Family Medical History / Comment(s): Father had his first of three MIs at the age of 49 yrs. He has had multiple cardiac stents Medications and Allergies Home Medications Medication Instructions Recorded Confirmed Type Metoprolol Tartrate [Lopressor] 50 mg PO BID #60 tab 07/24/17 09/27/20 Rx Atorvastatin Calcium [Lipitor] 10 mg PO HS 03/10/20 09/27/20 History Escitalopram [Lexapro] 10 mg PO HS 03/10/20 09/27/20 History metFORMIN HCL 1,000 mg PO BID 03/10/20 09/27/20 History INSULIN LISPRO (HumaLOG) [humaLOG] See Protocol SQ AC-TID 07/22/20 09/27/20 History Insulin Glargine,Hum.rec.anlog 25 unit SQ HS 07/22/20 09/27/20 History [Lantus Solostar] Albuterol Inhaler [Ventolin Hfa 2 puff INHALATION RT-QID PRN 30 07/24/20 09/27/20 Rx Inhaler] Days #1 inhaler Albuterol Nebulized [Ventolin 2.5 mg INHALATION Q6H PRN 30 Days 07/24/20 09/27/20 Rx Nebulized] #1 vial Losartan [Cozaar] 25 mg PO DAILY #30 tab 07/24/20 09/27/20 Rx Allergies Allergy/AdvReac Type Severity Reaction Status Date / Time aspirin Allergy Rapid Verified 09/27/20 08:31 Heart Rate ibuprofen [From Motrin] Allergy Anaphylaxis Verified 09/27/20 08:31 methylprednisolone Allergy Anaphylaxis Verified 09/27/20 08:31 [From Solu-Medrol] Physical Exam Vitals: Vital Signs Temp Pulse Pulse Resp BP Pulse Ox 09/28/20 20:22 105 H 09/28/20 20:09 103 H 09/28/20 15:36 102 H 09/28/20 15:26 100 09/28/20 15:00 96.6 F L 90 16 92/55 92 L 09/28/20 11:33 107 H 09/28/20 11:23 103 H 09/28/20 08:13 96.5 F L 110 H 18 112/79 94 L 09/28/20 07:45 101 H 09/28/20 07:33 105 H 09/28/20 02:15 97.8 F 103 H 121/74 09/27/20 23:41 104 H 09/27/20 23:30 105 H 09/27/20 20:50 98.8 F 106 H 119/73 91 L 09/27/20 20:41 100 Intake and Output 09/28/20 09/28/20 09/28/20 06:59 14:59 22:59 Intake Total 100 Balance 100 Intake: Intake, IV Titration 100 Amount cefTRIAXone 1 gm In 100 Sodium Chloride 0.9% 50 ml @ 100 mls/hr IVPB Q24HR [facility] Rx#:[id number] Other: Voiding Method Toilet Toilet # Voids 2 General: well nourished, well developed, NAD. Vitals reviewed Eyes: PERRL, EOMI, conjunctiva normal HENT: normocephalic, mucus membranes moist Neck: supple, no JVD Lungs: normal respiratory effort. Wheezing and rhonchi bilaterally CV: Regular rate and rhythm, no murmur. Peripheral pulses 2+ Abdomen: soft, nondistended, no organomegaly Lymph: no cervical or axillary LAD Skin: warm and dry. Neuro: A&Ox3, normal mood and affect Results CBC & Chem 7: 09/27/20 08:00 09/27/20 08:00 Labs: Abnormal Lab Results - Last 24 Hours (Table) 09/28/20 09/28/20 09/28/20 Range/Units 06:42 11:29 17:10 POC Glucose (mg/dL) 145 H 111 H 122 H (75-99) mg/dL Microbiology - Last 24 Hours (Table) 09/27/20 10:20 Blood Culture - Preliminary Blood No Growth after 24 hours Thrombosis Risk Factor Assmnt - Choose All That Apply Each Factor Represents 1 point: Serious lung disease incl. pneumonia (< 1month) Thrombosis Risk Factor Assessment Total Risk Factor Score: 1 Thrombosis Risk Factor Assessment Level: Low Risk Assessment and Plan (1) Community acquired pneumonia Current Visit: Yes Status: Acute Code(s): J18.9 - PNEUMONIA, UNSPECIFIED ORGANISM SNOMED Code(s): 734565059 (2) Mucus plugging of bronchi Current Visit: Yes Status: Acute Code(s): J98.09 - OTHER DISEASES OF BRONCHUS, NOT ELSEWHERE CLASSIFIED SNOMED Code(s): 85840107 (3) Hypertension Current Visit: No Status: Acute Code(s): I10 - ESSENTIAL (PRIMARY) H YPERTENSION SNOMED Code(s): 55721938 Plan: 1. Community Acquired Pneumonia of RLL. Admit and consult to pulmonary. Start rocephin and azithromycin. Caitie 2. Essential hypertension. Continue losartan and metoprolol 3. T2DM. Hold metformin, continue basal insulin and sliding scale 4. RICHARDSON. Continue lexapro
[2020-09-28 21:22] LABS: Glucose,Whole Blood 168 mg/dL (75-99)
[2020-09-28] MEDS: ESCITALOPRAM 10 MG TAB PO SCH (21:30)
[2020-09-28] MEDS: ATORVASTATIN 10 MG TAB PO SCH (21:30)
[2020-09-29] MEDS: IPRATROPIUM-ALBUTEROL 3 ML NEB INHALATION SCH ×5 (05:52→19:21)
[2020-09-29 06:22] LABS: Glucose,Whole Blood 137 mg/dL (75-99)
[2020-09-29] MEDS: INSULIN ASPART (NovoLOG) 100 UNIT/ML VIAL SQ SCH ×4 (06:31→20:44)
[2020-09-29] MEDS: METOPROLOL TARTRATE 50 MG TAB PO SCH ×2 (08:55→20:44)
[2020-09-29] MEDS: INSULIN DETEMIR (LEVEMIR) 100 UNIT/ML SYR SQ SCH (08:55)
[2020-09-29] MEDS: AZITHROMYCIN 250 MG TAB PO SCH (08:56)
--- NOTE | 2020-09-29 10:11 | XR ---
EXAMINATION TYPE: XR chest 2V DATE OF EXAM: 09/29/2020 COMPARISON: Chest x-ray 2 days ago. HISTORY: Difficulty in breathing. TECHNIQUE: Frontal and lateral views of the chest are obtained. FINDINGS: There is no suspicious new focal air space opacity, pleural effusion, or pneumothorax seen . The cardiac silhouette size remains within normal limits. The osseous structures are intact. IMPRESSION: No acute cardiopulmonary process. No significant change from prior.
[2020-09-29 11:30] LABS: Glucose,Whole Blood 136 mg/dL (75-99)
[2020-09-29] MEDS: LOSARTAN 25 MG TAB PO SCH (12:21)
--- NOTE | 2020-09-29 12:25 | P.PN ---
Subjective Progress Note Date: 09/29/20 Principal diagnosis: Acute hypoxic respiratory failure secondary to community-acquired pneumonia, and cough induced syncope. This is a 40-year-old white male with history of hypertension, depression, previous smoker, patient presented to the ER with 1 month history of cough, anshul rtness of breath, cough is productive with whitish phlegm, and he had intermittent episodes of cough induced syncope. CT angiogram of the chest done on this admission showed no evidence of pulmonary embolism, however there was evidence of [id number] peribronchial wall thickening, mucous plugging in lower lungs, and a right lower lobe infiltrate. There is also some reactive lymphadenopathy noted. No fever was documented on this admission, he had a T- max of 98.9, there was no evidence of leukocytosis. And his PCR for COVID 19 was negative. Patient was started on antibiotics for presumptive community- acquired pneumonia, and I was asked to see him on consultation. Patient was admitted to the hospital about 2 months ago, and at that time the patient had abnormal cardiac enzymes, atypical chest discomfort, seen by cardiology on consultation, and the recommendation was to maintain patient on metoprolol and losartan for poorly controlled blood pressure. Patient was reevaluated today on 09/29/2020, patient remains in the observation unit, continues to have intermittent cough and wheezing today. Follow-up chest x-ray today showed no change, however his CT of the chest on admission clearly showed evidence of right lower lobe infiltrates. Patient is wheezing today, hence I recommended that we start the patient on more bronchodilators including DuoNeb, Symbicort, and I added Singulair. Patient had a questionable anaphylactic reaction to IV Solu-Medrol, hence will avoid IV Solu-Medrol for now. But clearly based on his symptoms the patient is not ready to be discharged home yet. Objective - Vital Signs Vital signs: Vital Signs Temp 97.8 F 09/29/20 08:18 Pulse 102 H 09/29/20 11:27 Resp 16 09/29/20 09:00 BP 120/71 09/29/20 08:18 Pulse Ox 93 L 09/29/20 08:18 Intake & Output 09/28/20 09/29/20 09/29/20 18:59 06:59 18:59 Intake Total 100 200 Balance 100 200 Intake: Intake, IV Titration 100 Amount cefTRIAXone 1 gm In 100 Sodium Chloride 0.9% 50 ml @ 100 mls/hr IVPB Q24HR [facility] Rx#:[id number] Oral 200 Other: Voiding Method Toilet Toilet Toilet # Voids 2 1 - Exam Physical Exam: Revealed 40-year-old white male in no distress. Head: Atraumatic, normocephalic. HEENT:[Neck is supple.] [No neck masses.] [No thyromegaly.] [No JVD.] Chest: [Symmetrical chest expansion, crackles at the right base. Wheezing especially on the right side is noted. Cardiac Exam: [Normal S1 and S2, no S3 gallop, no murmur.] Abdomen: [Soft, nontender, no megaly, no rebound, no guarding, normal bowel sounds.] Extremities: [No clubbing, no edema, no cyanosis.] Neurological Exam: [No focal neurologic deficit.] Alert oriented 3. Psychiatric: Normal mood, affect and normal mental status examination. HEENT: No rashes. - Labs CBC & Chem 7: 09/27/20 08:00 09/27/20 08:00 Labs: Abnormal Lab Results - Last 24 Hours (Table) 09/28/20 09/28/20 09/29/20 Range/Units 17:10 21:21 06:20 POC Glucose (mg/dL) 122 H 168 H 137 H (75-99) mg/dL 09/29/20 Range/Units 11:25 POC Glucose (mg/dL) 136 H (75-99) mg/dL Microbiology - Last 24 Hours (Table) 09/27/20 10:20 Blood Culture - Preliminary Blood No Growth after 24 hours Assessment and Plan Assessment: Impression: Acute hypoxic respiratory failure secondary to acute community-acquired pneumonia mostly involving the right lower lobe. Cough induced syncope. Acute exacerbation of bronchial asthma, mild intermittent. Benign essential hypertension. Type 2 diabetes. GERD without esophagitis. Seasonal ALLERGIC rhinitis. Dyslipidemia. Recommendation: No plans to discharge the patient home today. Continue bronchodilators and added Singulair. Continue present course of antibiotics. Chest x-ray was reviewed, no change compared to the admission chest x-ray. Possible discharge planning in the next 24 hours We'll continue to follow Time with Patient: Less than 30
--- NOTE | 2020-09-29 14:35 | P.DS ---
Providers Date of admission: 09/29/20 08:20 Expected date of discharge: 09/29/20 Attending physician: Josue Rose MD Consults: 09/27/20 10:46 Consult Physician Routine Consulting Provider: Dread Prajapati Consult Reason/Comments: hypoxia, mucous plug, infiltrates Do you want consulting provider notified?: Yes Primary care physician: Peggy Brooks Hospital Course: Final Diagnoses: Community acquired pneumonia with mucous plugging up bronchi Acute hypoxic respiratory failure secondary to the above Hypertension Diabetes mellitus type 2 Gastroesophageal reflux disease Hospital course:Jad Tariq is a 40 yo M with PMH of HTN, hx COVID about 6 months ago, former smoker who presented to the ED complaining of shortness of breath and episodes of coughing so hard he has passed out. He states that over the past month and last week especially he has been coughing and feeling chest tightness, he has coughed to the point he blacked out most recently the day prior to admission. He denies fever or chills. He feels his breathing had been an issue ever since he was admitted a few months ago and had a negative reaction with solumedrol. On presentation, vitals stable, SpO2 91% on RA, labs overall unremarkable. CT chest did show RLL infiltrate and mucus plugging. Significant clinical improvement. Better air entry, minimal wheezing. Currently maintaining O2 sats in the 90s on 2 L nasal cannula. Earlier patient was maintaining O2 sats of 88% on room air. Staff has been advised to ambulate patient, obtain O2 sats on room air after ambulation. Patient will be discharged home today in stable condition with guarded prognosis, pending final DC recommendations and clearance from pulmonary and pending patient is able to maintain O2 sats of greater than or equal to 88% on room air. General: Sitting up in bed, NAD. Vitals reviewed Eyes: PERRL, EOMI, conjunctiva normal HENT: normocephalic, mucus membranes moist Neck: supple, no JVD Lungs: normal respiratory effort. Less wheezing CV: Regular rate and rhythm, no murmur. Peripheral pulses 2+ Abdomen: soft, nondistended, no organomegaly Skin: warm and dry. Neuro: A&Ox3, normal mood and affect The impression and plan of care has been dictated as directed. : I performed a history and examination of this patient, discussed the same with the dictator. I agree with the dictator's note ,documented as a scribe. Any additional findings or plans will be noted. Patient Condition at Discharge: Stable Plan - Discharge Summary New Discharge Prescriptions: New Amoxicillin/Potassium Clav [Augmentin 875-125 Tablet] 1 tab PO Q12HR 5 Days #10 tab Continue Metoprolol Tartrate [Lopressor] 50 mg PO BID #60 tab metFORMIN HCL 1,000 mg PO BID Atorvastatin Calcium [Lipitor] 10 mg PO HS Escitalopram [Lexapro] 10 mg PO HS INSULIN LISPRO (HumaLOG) [humaLOG] See Protocol SQ AC-TID Losartan [Cozaar] 25 mg PO DAILY #30 tab Albuterol Inhaler [Ventolin Hfa Inhaler] 2 puff INHALATION RT-QID PRN 30 Days #1 inhaler PRN Reason: Shortness Of Breath Albuterol Nebulized [Ventolin Nebulized] 2.5 mg INHALATION Q6H PRN 30 Days #1 vial PRN Reason: Shortness Of Breath Changed Insulin Glargine,Hum.rec.anlog [Lantus Solostar] 10 unit SQ HS #0 Discharge Medication List Metoprolol Tartrate [Lopressor] 50 mg PO BID #60 tab 07/24/17 [Rx] Atorvastatin Calcium [Lipitor] 10 mg PO HS 03/10/20 [History] Escitalopram [Lexapro] 10 mg PO HS 03/10/20 [History] metFORMIN HCL 1,000 mg PO BID 03/10/20 [History] INSULIN LISPRO (HumaLOG) [humaLOG] See Protocol SQ AC-TID 07/22/20 [History] Albuterol Inhaler [Ventolin Hfa Inhaler] 2 puff INHALATION RT-QID PRN 30 Days #1 inhaler 07/24/20 [Rx] Albuterol Nebulized [Ventolin Nebulized] 2.5 mg INHALATION Q6H PRN 30 Days #1 vial 07/24/20 [Rx] Losartan [Cozaar] 25 mg PO DAILY #30 tab 07/24/20 [Rx] Amoxicillin/Potassium Clav [Augmentin 875-125 Tablet] 1 tab PO Q12HR 5 Days #10 tab 09/29/20 [Rx] Insulin Glargine,Hum.rec.anlog [Lantus Solostar] 10 unit SQ HS #0 09/29/20 [Rx] Follow up Appointment(s)/Referral(s): Dread Prajapati MD [STAFF PHYSICIAN] - 1 Week Josue Rose MD [STAFF PHYSICIAN] - 3 Days
[2020-09-29 16:44] LABS: Glucose,Whole Blood 97 mg/dL (75-99)
[2020-09-29] MEDS: SYMBICORT 160-4.5 MCG INHALER INHALATION SCH (19:22)
[2020-09-29 20:39] LABS: Glucose,Whole Blood 145 mg/dL (75-99)
[2020-09-29] MEDS: ATORVASTATIN 10 MG TAB PO SCH (20:43)
[2020-09-29] MEDS: ESCITALOPRAM 10 MG TAB PO SCH (20:44)
[2020-09-29] MEDS ORDERED: MONTELUKAST 10 MG TAB PO SCH (21:00)
[2020-09-30] MEDS: IPRATROPIUM-ALBUTEROL 3 ML NEB INHALATION SCH ×5 (00:42→15:52)
[2020-09-30 06:56] LABS: Glucose,Whole Blood 156 mg/dL (75-99)
[2020-09-30] MEDS: SYMBICORT 160-4.5 MCG INHALER INHALATION SCH (07:32)
[2020-09-30 08:21] VITALS: BP 128/80; RESP 16; TEMP 98
[2020-09-30] MEDS: INSULIN ASPART (NovoLOG) 100 UNIT/ML VIAL SQ SCH ×3 (08:22→17:21)
[2020-09-30] MEDS: INSULIN DETEMIR (LEVEMIR) 100 UNIT/ML SYR SQ SCH (08:22)
[2020-09-30] MEDS: LOSARTAN 25 MG TAB PO SCH (08:23)
[2020-09-30] MEDS: METOPROLOL TARTRATE 50 MG TAB PO SCH (08:23)
[2020-09-30] MEDS: AZITHROMYCIN 250 MG TAB PO SCH (08:24)
--- NOTE | 2020-09-30 10:44 | P.CRDCN ---
History of Present Illness Consult date: 09/30/20 History of present illness: CHIEF COMPLAINT: Cough induced syncope HISTORY OF PRESENT ILLNESS: This is a 40-year-old male with a past medical history significant for hypertension, hyperlipidemia, and diabetes mellitus. Patient states he does not follow with a structural biologist. We have been asked to see the patient in consultation for cough induced syncope. Patient examined this morning at the bedside. Patient states he had Covid in December 2019. He reports having a cough since that time. Patient was hospitalized in June 2020 secondary to bronchitis. The patient had an apparent anaphylactic reaction to Solu-Medrol. He states since that time his cough has gotten significantly worse. He states he will have "coughing fits" and he begins to feel lightheaded and states that he "blacks out". He states when he wakes up from these coughing fits that his body feels very stiff. Patient states he had an episode of this y ester while lying in the bed. He states this has happened at home before and was witnessed by his . DIAGNOSTICS: EKG reveals sinus rhythm with no signs of acute ischemia Chest xray no acute cardiopulmonary process Laboratory data: WBC 8.0. Hemoglobin 17.6. Platelet count 289. D-dimer 0.56. Sodium 138. Potassium 4.1. BUN 30. Creatinine 1.09. Troponin negative 1 Current home cardiac medications include metoprolol 50 mg twice a day, losartan 25 mg daily, Lipitor 10 mg daily Echocardiogram completed in June 2020 reveal ejection fraction greater than 55% Patient underwent stress echo in 2017 which was negative for reversible ischemia REVIEW OF SYSTEMS: At the time of my exam: CONSTITUTIONAL: Denies fever or chills. HEENT: Denies blurred vision, vision changes, or eye pain. Denies hemoptysis CARDIOVASCULAR: Denies chest pain, orthopnea, PND or palpitations RESPIRATORY: No shortness of breath. GASTROINTESTINAL: Denies abdominal pain. Denies nausea or vomiting. HEMATOLOGIC: Denies bleeding disorders. GENITOURINARY: Denies any blood in urine. SKIN: Denies pruitis. Denies rash. PHYSICAL EXAM: VITAL SIGNS: Reviewed. GENERAL: Well-developed in no acute distress. HEENT: Head is normocephalic. Pupils are equal, round. Sclerae anicteric. Mucous membranes of the mouth are moist. Neck supple. No JVD or thyromegaly LUNGS: Respirations even and unlabored. Lungs diminished with expiratory wheezing. HEART: Regular rate and rhythm. S1 and S2 heard. ABDOMEN: Soft. Nondistended. Nontender. EXTREMITIES: Normal range of motion. No clubbing or cyanosis. Peripheral pulses intact. No lower extremity edema NEUROLOGIC: Awake and alert. Oriented x 3. ASSESSMENT: Acute community-acquired pneumonia Posttussive syncope Hypertension Hyperlipidemia Diabetes mellitus PLAN: Continue current cardiac medications No need to repeat echocardiogram Recommend treatment of cough per internal medicine and pulmonary. With treatment and resolution of cough, syncopal episodes will resolve. Nurse practitioner note has been reviewed by physician. Signing provider agrees with the documented findings, assessment, and plan of care. Past Medical History Past Medical History: Diabetes Mellitus, GERD/Reflux, Hyperlipidemia, Hypertension Additional Past Medical History / Comment(s): NIDDM type II-diagnosed 02/2020, seasonal allergies, cyst in L abdomin and sternum area. History of Any Multi-Drug Resistant Organisms: None Reported Additional Past Surgical History / Comment(s): EGD, bilateral myringotomy/tubes, nasal polypectomy/turbinate reduction, wisdom teeth extractions. Past Anesthesia/Blood Transfusion Reactions: No Reported Reaction Additional Past Anesthesia/Blood Transfusion Reaction / Comment(s): c/o dizziness when waking up. Past Psychological History: No Psychological Hx Reported Additional Psychological History / Comment(s): Pt resides with his spouse. He is independent. He served in the [employer]. Smoking Status: Former smoker Past Alcohol Use History: Occasional Additional Past Alcohol Use History / Comment(s): STARTED SMOKING AT AGE [age](1999) AND QUIT 2013 SMOKED 4 CIG PER DAY Past Drug Use History: Marijuana - Past Family History Mother Family Medical History: No Reported History Additional Family Medical History / Comment(s): Mother is healthy Father Family Medical History: Coronary Artery Disease (CAD), Diabetes Mellitus, Myocardial Infarction ([place]) Additional Family Medical History / Comment(s): Father had his first of three MIs at the age of 49 yrs. He has had multiple cardiac stents Medications and Allergies Home Medications Medication Instructions Recorded Confirmed Type Metoprolol Tartrate [Lopressor] 50 mg PO BID #60 tab 07/24/17 09/27/20 Rx Atorvastatin Calcium [Lipitor] 10 mg PO HS 03/10/20 09/27/20 History Escitalopram [Lexapro] 10 mg PO HS 03/10/20 09/27/20 History metFORMIN HCL 1,000 mg PO BID 03/10/20 09/27/20 History INSULIN LISPRO (HumaLOG) [humaLOG] See Protocol SQ AC-TID 07/22/20 09/27/20 History Albuterol Inhaler [Ventolin Hfa 2 puff INHALATION RT-QID PRN 30 07/24/20 Rx Inhaler] Days #1 inhaler Albuterol Nebulized [Ventolin 2.5 mg INHALATION Q6H PRN 30 Days 07/24/20 09/27/20 Rx Nebulized] #1 vial Losartan [Cozaar] 25 mg PO DAILY #30 tab 07/24/20 09/27/20 Rx Amoxicillin/Potassium Clav 1 tab PO Q12HR 5 Days #10 tab 09/29/20 Rx [Augmentin 875-125 Tablet] Insulin Glargine,Hum.rec.anlog 10 unit SQ HS #0 09/29/20 09/27/20 Rx [Lantus Solostar] Budesonide-Formot 160-4.5 Mcg 2 puff INHALATION BID 30 Days #1 09/30/20 Rx [Symbicort 160-4.5 Mcg Inhaler] inhaler Ipratropium-Albuterol Nebulize 3 ml INHALATION QID 30 Days #6 box 09/30/20 Rx [Duoneb 0.5 mg-3 mg/3 ml Soln] Allergies Allergy/AdvReac Type Severity Reaction Status Date / Time aspirin Allergy Rapid Verified 09/27/20 08:31 Heart Rate ibuprofen [From Motrin] Allergy Anaphylaxis Verified 09/27/20 08:31 methylprednisolone Allergy Anaphylaxis Verified 09/27/20 08:31 [From Solu-Medrol] Physical Exam Vitals: Vital Signs Temp Pulse Pulse Resp BP Pulse Ox 09/30/20 09:00 76 16 09/30/20 08:20 98 F 76 16 128/80 94 L 09/30/20 07:37 76 09/30/20 07:26 76 09/30/20 04:38 72 09/30/20 04:23 70 09/30/20 03:45 97.6 F 82 126/79 93 L 09/30/20 00:51 76 09/30/20 00:42 77 09/29/20 19:40 98.4 F 91 116/78 92 L 09/29/20 19:37 102 H 09/29/20 19:22 100 09/29/20 15:53 98 09/29/20 15:43 100 09/29/20 15:30 20 09/29/20 15:00 98.3 F 93 20 143/87 95 09/29/20 11:27 102 H Intake and Output 09/29/20 09/30/20 09/30/20 22:59 06:59 14:59 Intake Total 940 Balance 940 Intake: Oral 940 Other: Voiding Method Toilet Toilet Toilet # Voids 1 1 Results 09/27/20 08:00 09/27/20 08:00 Current Medications Generic Name Dose Route Start Last Admin Trade Name Freq PRN Reason Stop Dose Admin Albuterol/Ipratropium 3 ml 09/27/20 12:00 09/30/20 07:26 Ipratropium-Albuterol 3 Ml Neb INHALATION 3 ml RT-Q4H JUANA Administration Albuterol/Ipratropium 3 ml 09/27/20 10:50 Ipratropium-Albuterol 3 Ml Neb INHALATION RT-Q6H PRN Wheezing Atorvastatin Calcium 10 mg 09/28/20 21:00 09/29/20 20:43 Atorvastatin 10 Mg Tab PO 10 mg HS JUANA Administration Azithromycin 250 mg 09/28/20 09:00 09/30/20 08:24 Azithromycin 250 Mg Tab PO 250 mg DAILY JUANA Administration Budesonide/Formoterol Fumarate 2 puff 09/29/20 20:00 09/30/20 07:32 Symbicort 160-4.5 Mcg Inhaler INHALATION Not Given RT-BID JUANA Escitalopram Oxalate 10 mg 09/28/20 21:00 09/29/20 20:44 Escitalopram 10 Mg Tab PO 10 mg HS JUANA Administration Ceftriaxone Sodium 1 gm/ 50 mls @ 100 mls/hr 09/28/20 09:00 09/30/20 08:24 Sodium Chloride IVPB 100 mls/hr Q24HR JUANA Administration Insulin Aspart 0 unit 09/28/20 07:30 09/30/20 08:22 Insulin Aspart (Novolog) 100 Unit/Ml Vial SQ 1 unit ACHS JUANA Administration Protocol Insulin Detemir 10 unit 09/28/20 09:00 09/30/20 08:22 Insulin Detemir (Levemir) 100 Unit/Ml Syr SQ 10 unit DAILY JUANA Administration Losartan Potassium 25 mg 09/28/20 09:00 09/30/20 08:23 Losartan 25 Mg Tab PO 25 mg DAILY JUANA Administration Metoprolol Tartrate 50 mg 09/28/20 09:00 09/30/20 08:23 Metoprolol Tartrate 50 Mg Tab PO 50 mg BID JUANA Administration Montelukast Sodium 10 mg 09/29/20 21:00 09/29/20 20:44 Montelukast 10 Mg Tab PO 10 mg HS JUANA Administration Naloxone HCl 0.2 mg 09/27/20 10:13 Naloxone 0.4 Mg/Ml 1 Ml Vial IV Q2M PRN Opioid Reversal Intake and Output 09/29/20 09/30/20 09/30/20 22:59 06:59 14:59 Intake Total 940 Balance 940 Intake: Oral 940 Other: Voiding Method Toilet Toilet Toilet # Voids 1 1 09/27/20 08:00 09/27/20 08:00
[2020-09-30 12:13] LABS: Glucose,Whole Blood 90 mg/dL (75-99)
--- NOTE | 2020-09-30 12:28 | P.PN ---
Subjective Progress Note Date: 09/30/20 Principal diagnosis: Acute hypoxic respiratory failure secondary to community-acquired pneumonia, and cough induced syncope. This is a 40-year-old white male with history of hypertension, depression, previous smoker, patient presented to the ER with 1 month history of cough, anshul rtness of breath, cough is productive with whitish phlegm, and he had intermittent episodes of cough induced syncope. CT angiogram of the chest done on this admission showed no evidence of pulmonary embolism, however there was evidence of [id number] peribronchial wall thickening, mucous plugging in lower lungs, and a right lower lobe infiltrate. There is also some reactive lymphadenopathy noted. No fever was documented on this admission, he had a T- max of 98.9, there was no evidence of leukocytosis. And his PCR for COVID 19 was negative. Patient was started on antibiotics for presumptive community- acquired pneumonia, and I was asked to see him on consultation. Patient was admitted to the hospital about 2 months ago, and at that time the patient had abnormal cardiac enzymes, atypical chest discomfort, seen by cardiology on consultation, and the recommendation was to maintain patient on metoprolol and losartan for poorly controlled blood pressure. Patient was reevaluated today on 09/29/2020, patient remains in the observation unit, continues to have intermittent cough and wheezing today. Follow-up chest x-ray today showed no change, however his CT of the chest on admission clearly showed evidence of right lower lobe infiltrates. Patient is wheezing today, hence I recommended that we start the patient on more bronchodilators including DuoNeb, Symbicort, and I added Singulair. Patient had a questionable anaphylactic reaction to IV Solu-Medrol, hence will avoid IV Solu-Medrol for now. But clearly based on his symptoms the patient is not ready to be discharged home yet. Reevaluated today on 09/30/2020, patient remains in the observation unit. Seems to be doing much better today. Less cough and less wheezing less shortness of breath, hence I'm recommending that the patient goes home on antibiotics, Symbicort, DuoNeb, and Singulair. Should have outpatient follow-up in the next couple of weeks. Objective - Vital Signs Vital signs: Vital Signs Temp 98 F 09/30/20 08:20 Pulse 72 09/30/20 11:17 Resp 16 09/30/20 09:00 BP 128/80 01/07/21 08:20 Pulse Ox 94 L 09/30/20 08:20 Intake & Output 09/29/20 09/30/20 09/30/20 18:59 06:59 18:59 Intake Total 730 700 Balance 730 700 Intake: IV 50 cefTRIAXone 1 gm In 50 Sodium Chloride 0.9% 50 ml @ 100 mls/hr IVPB Q24HR JUANA Rx#:[id number] Oral 680 700 Other: Voiding Method Toilet Toilet Toilet # Voids 1 1 - Exam Physical Exam: Revealed 40-year-old white male in no distress. On room air. Head: Atraumatic, normocephalic. HEENT:[Neck is supple.] [No neck masses.] [No thyromegaly.] [No JVD.] Chest: [Symmetrical chest expansion, slight wheezing on forced expiratory maneuver only. Cardiac Exam: [Normal S1 and S2, no S3 gallop, no murmur.] Abdomen: [Soft, nontender, no megaly, no rebound, no guarding, normal bowel sounds.] Extremities: [No clubbing, no edema, no cyanosis.] Neurological Exam: [No focal neurologic deficit.] Alert oriented 3. Psychiatric: Normal mood, affect and normal mental status examination. HEENT: No rashes. - Labs CBC & Chem 7: 09/27/20 08:00 09/27/20 08:00 Labs: Abnormal Lab Results - Last 24 Hours (Table) 09/29/20 09/30/20 Range/Units 20:37 06:54 POC Glucose (mg/dL) 145 H 156 H (75-99) mg/dL Microbiology - Last 24 Hours (Table) 09/27/20 10:20 Blood Culture - Preliminary Blood No Growth after 48 hours Assessment and Plan Assessment: Impression: Acute hypoxic respiratory failure secondary to acute community-acquired pneumonia mostly involving the right lower lobe. Cough induced syncope. Acute exacerbation of bronchial asthma, mild intermittent. Benign essential hypertension. Type 2 diabetes. GERD without esophagitis. Seasonal ALLERGIC rhinitis. Dyslipidemia. Recommendation: Cleared for discharge home today. Continue bronchodilators and added Singulair. Oral antibiotics. Chest x-ray from yesterday was reviewed Follow-up on outpatient basis. Time with Patient: Less than 30
[2020-09-30 16:08] VITALS: PULSE 75
== END 2020-09-30 18:50 | disposition home or self-care (01) | DRG 193 ==
LOC: EC 07:38 → 1SOBS 10:31 → OBSVTOIN 09-29 08:20
PROVIDERS: ADMIT Family Medicine; ATTEND Family Medicine
DX: J18.9 Pneumonia, unspecified organism (principal); J96.01 Acute respiratory failure with hypoxia; J45.21 Mild intermittent asthma with (acute) exacerbation; T17.890A Other foreign object in other parts of respiratory tract causing asphyxiation, initial encounter; K21.9 Gastro-esophageal reflux disease without esophagitis; I10 Essential (primary) hypertension; E78.5 Hyperlipidemia, unspecified; E11.9 Type 2 diabetes mellitus without complications; Z88.6 Allergy status to analgesic agent; Z88.8 Allergy status to other drugs, medicaments and biological substances; Z79.51 Long term (current) use of inhaled steroids; Z79.84 Long term (current) use of oral hypoglycemic drugs; Z79.899 Other long term (current) drug therapy; Z82.49 Family history of ischemic heart disease and other diseases of the circulatory system; Z83.3 Family history of diabetes mellitus; Z87.891 Personal history of nicotine dependence; R55 Syncope and collapse; Z20.822 Contact with and (suspected) exposure to COVID-19; Z86.16 Personal history of COVID-19
CPT/HCPCS: 36415; 71046; 71275; 80053; 81001; 83605; 83735; 83880; 84484; 85025; 85379; 85610; 85730; 87040; 87390; 87635; 93005; 94640; 96365; 96367; 99285

== ENCOUNTER 2021-03-23 07:22 | Emergency (ER) | payer OTHER ==
[2021-03-23 07:28] VITALS: BP 140/98; PULSE 82; RESP 18; TEMP 97.6
[2021-03-23] MEDS ORDERED: FLUORESCEIN STRIPS 1 MG STRIP LEFT EYE ONE (07:31)
[2021-03-23] MEDS ORDERED: PROPARACAINE 0.5% OPHTH DROPS 15 ML BTL LEFT EYE STA (07:31)
[2021-03-23] MEDS ORDERED: DIPH,PERTUS(ACELL)TETVAC-LF 0.5 ML VIAL IM ONE (07:52)
--- NOTE | 2021-03-23 07:57 | ED ---
General Adult HPI - General Chief complaint: Eye Problems Stated complaint: Loss of Vision in LT eye Time Seen by Provider: 03/23/21 07:31 Source: patient, RN notes reviewed, old records reviewed Mode of arrival: ambulatory Limitations: no limitations - History of Present Illness Initial comments: 40-year-old male with suspected foreign body in the left eye. Patient was grinding with an angle flute grinder yesterday. He had safety glasses on but a metal nancy had trouble under the safety glasses and was left eye. He's had pain and irritation since that time. He does report some blurry vision as well. He's had this happen in the past. - Related Data Home Medications Medication Instructions Recorded Confirmed Atorvastatin Calcium [Lipitor] 10 mg PO HS 03/10/20 09/27/20 Escitalopram [Lexapro] 10 mg PO HS 03/10/20 09/27/20 metFORMIN HCL 1,000 mg PO BID 03/10/20 09/27/20 INSULIN LISPRO (HumaLOG) [humaLOG] See Protocol SQ AC-TID 07/22/20 09/27/20 Previous Rx's Medication Instructions Recorded Metoprolol Tartrate [Lopressor] 50 mg PO BID #60 tab 07/24/17 Albuterol Inhaler [Ventolin Hfa 2 puff INHALATION RT-QID PRN 30 07/24/20 Inhaler] Days #1 inhaler Albuterol Nebulized [Ventolin 2.5 mg INHALATION Q6H PRN 30 Days 07/24/20 Nebulized] #1 vial Losartan [Cozaar] 25 mg PO DAILY #30 tab 07/24/20 Amoxicillin/Potassium Clav 1 tab PO Q12HR 5 Days #10 tab 09/29/20 [Augmentin 875-125 Tablet] Insulin Glargine,Hum.rec.anlog 10 unit SQ HS #0 09/29/20 [Lantus Solostar] Budesonide-Formot 160-4.5 Mcg 2 puff INHALATION BID 30 Days #1 09/30/20 [Symbicort 160-4.5 Mcg Inhaler] inhaler Ipratropium-Albuterol Nebulize 3 ml INHALATION QID 30 Days #6 box 09/30/20 [Duoneb 0.5 mg-3 mg/3 ml Soln] Montelukast Sodium [Singulair] 10 mg PO HS 30 Days #30 tab 09/30/20 Allergies Allergy/AdvReac Type Severity Reaction Status Date / Time aspirin Allergy Rapid Verified 03/23/21 07:28 Heart Rate ibuprofen [From Motrin] Allergy Anaphylaxis Verified 03/23/21 07:28 methylprednisolone Allergy Anaphylaxis Verified 03/23/21 07:28 [From Solu-Medrol] Review of Systems ROS Statement: Those systems with pertinent positive or pertinent negative responses have been documented in the HPI. ROS Other: All systems not noted in ROS Statement are negative. Past Medical History Past Medical History: Diabetes Mellitus, GERD/Reflux, Hyperlipidemia, Hypertension Additional Past Medical History / Comment(s): NIDDM type II-diagnosed 02/2020, seasonal allergies, cyst in L abdomin and sternum area. History of Any Multi-Drug Resistant Organisms: None Reported Additional Past Surgical History / Comment(s): EGD, bilateral myringotomy/tubes, nasal polypectomy/turbinate reduction, wisdom teeth extractions. Past Anesthesia/Blood Transfusion Reactions: No Reported Reaction Additional Past Anesthesia/Blood Transfusion Reaction / Comment(s): c/o dizziness when waking up. Past Psychological History: No Psychological Hx Reported Smoking Status: Former smoker Past Alcohol Use History: Occasional Past Drug Use History: Marijuana - Past Family History Mother Family Medical History: No Reported History Additional Family Medical History / Comment(s): Mother is healthy Father Family Medical History: Coronary Artery Disease (CAD), Diabetes Mellitus, Myocardial Infarction ([place]) Additional Family Medical History / Comment(s): Father had his first of three MIs at the age of 49 yrs. He has had multiple cardiac stents General Exam Limitations: no limitations General appearance: alert, in no apparent distress Head exam: Present: atraumatic, normocephalic Eye exam: Present: PERRL, EOMI, conjunctival injection, other (Tiny corneal fore ign body at the 3 o'clock position with associated rust ring. The anterior chamber is clear no hyphema, negative Susan's test). Absent: periorbital swelling, periorbital tenderness ENT exam: Present: normal exam Neck exam: Present: normal inspection. Absent: tenderness, meningismus Respiratory exam: Present: normal lung sounds bilaterally. Absent: respiratory distress, wheezes Cardiovascular Exam: Present: regular rate, normal rhythm GI/Abdominal exam: Present: soft. Absent: distended, tenderness Extremities exam: Present: normal inspection, normal capillary refill. Absent: pedal edema Neurological exam: Present: alert, oriented X3, CN II-XII intact. Absent: motor sensory deficit Psychiatric exam: Present: normal affect, normal mood Skin exam: Present: warm, dry, intact Course Vital Signs 03/23/21 07:23 Temperature 97.6 F Pulse Rate 82 Respiratory 18 Rate Blood Pressure 140/98 O2 Sat by Pulse 98 Oximetry Medical Decision Making - Medical Decision Making 40-year-old male with suspected foreign body in the left eye. He was grinding yesterday. He does have a what appears to be metallic foreign body in the left cornea 3 o'clock position. Negative Susan's test. Anterior chambers clear, pupils reactive. Vision in the affected eye is 20/100. Vision in the right 20/40 and bilateral vision 20/30. Patient's tetanus is updated. He is given erythromycin ointment. I did arrange for follow-up with ophthalmology Dr. Ellsworth for urgent evaluation. Disposition Clinical Impression: Corneal foreign body Disposition: HOME SELF-CARE Condition: Good Instructions (If sedation given, give patient instructions): Eye Foreign Body (ED) Is patient prescribed a controlled substance at d/c from ED?: No Referrals: Peggy Brooks DO [Primary Care Provider] - 1-2 days Bandar Ellsworth MD [STAFF PHYSICIAN] - 1-2 days Time of Disposition: 08:04
[2021-03-23] MEDS ORDERED: ERYTHROMYCIN 5 MG/GM OPHTH OINT 3.5 GM TUBE LEFT EYE SCH (08:00)
== END 2021-03-23 08:29 ==
LOC: EC 07:22
DX: T15.02XA Foreign body in cornea, left eye, initial encounter (principal); E11.9 Type 2 diabetes mellitus without complications; I10 Essential (primary) hypertension; E78.5 Hyperlipidemia, unspecified; K21.9 Gastro-esophageal reflux disease without esophagitis; F12.90 Cannabis use, unspecified, uncomplicated; Z23 Encounter for immunization; Z79.4 Long term (current) use of insulin; Z79.51 Long term (current) use of inhaled steroids; Z79.899 Other long term (current) drug therapy; Z87.891 Personal history of nicotine dependence; Z83.3 Family history of diabetes mellitus; Z82.49 Family history of ischemic heart disease and other diseases of the circulatory system; W22.8XXA Striking against or struck by other objects, initial encounter
CPT/HCPCS: 90471; 90715; 99283

== ENCOUNTER 2021-06-01 14:53 | Emergency (ER) | payer OTHER ==
[2021-06-01 15:21] VITALS: TEMP 98.4
[2021-06-01] MEDS ORDERED: MORPHINE SULFATE 4 MG/ML SYRINGE IM STA (15:36)
[2021-06-01] MEDS ORDERED: ORPHENADRINE 30 MG/ML 2 ML VIAL IM STA (15:36)
--- NOTE | 2021-06-01 16:32 | XR ---
EXAMINATION TYPE: XR lumbar spine 2 or 3V DATE OF EXAM: 06/01/2021 COMPARISON: None HISTORY: Fall, pain TECHNIQUE: 3 view lumbar spine FINDINGS: There are 5 lumbar-type vertebral bodies. Pedicles are intact. Disc heights are preserved. Vertebral body heights are preserved. IMPRESSION: 1. Normal three-view lumbar spine
--- NOTE | 2021-06-01 16:44 | ED ---
Back Pain HPI - General Chief Complaint: Back Pain/Injury Stated Complaint: Fall down 5 steps, back pain Time Seen by Provider: 06/01/21 15:26 Source: patient, RN notes reviewed Limitations: no limitations - History of Present Illness Initial Comments: Patient is a 40-year-old male that presents to the emergency department complaining of low back pain after slipping and falling down approximately 4-5 steps. He notes that he slipped and landed on his butt and then bounced down the rest of steps. He notes that his low back is extremely tight. He denied any issues having bowel movements or urinating. He denied any saddle anesthesia. He is able to walk he notes it is just difficult to stand up due to muscle tightness. He was otherwise a well-appearing 40-year-old male in no apparent distress or pain. He notes that his pain was approximately a 10 out of 10 with no relief or mental medications. He notes that he is ALLERGIC to all NSAIDs. And Tylenol as it worse. He denied any chest pain shortness breath headache nausea vomiting diarrhea constipation fever fatigue chills. - Related Data Home Medications Medication Instructions Recorded Confirmed Atorvastatin Calcium [Lipitor] 10 mg PO HS 03/10/20 06/01/21 Escitalopram [Lexapro] 10 mg PO HS 03/10/20 06/01/21 Ascorbic Acid [Vitamin C] 500 mg PO DAILY 06/01/21 06/01/21 Budesonide-Formot 160-4.5 Mcg 2 puff INHALATION RT-BID 06/01/21 06/01/21 [Symbicort 160-4.5 Mcg Inhaler] Ergocalciferol [Vitamin D2 (1250 1,250 mcg PO Q7D 06/01/21 06/01/21 Mcg = 73309 Iu)] Insulin Glargine,Hum.rec.anlog 25 unit SQ HS 06/01/21 06/01/21 [Lantus Solostar Pen] Vitamin B Complex 1 cap PO DAILY 06/01/21 06/01/21 hydroCHLOROthiazide [Hydrodiuril] 25 mg PO DAILY 06/01/21 06/01/21 Previous Rx's Medication Instructions Recorded Metoprolol Tartrate [Lopressor] 50 mg PO BID #60 tab 07/24/17 Amoxicillin/Potassium Clav 1 tab PO Q12HR 5 Days #10 tab 09/29/20 [Augmentin 875-125 Tablet] Montelukast Sodium [Singulair] 10 mg PO HS 30 Days #30 tab 09/30/20 Acetaminophen Tab [Tylenol] 650 mg PO Q6H 10 Days #80 tab 06/01/21 Cyclobenzaprine [Flexeril] 10 mg PO TID PRN #15 tab 06/01/21 Allergies Allergy/AdvReac Type Severity Reaction Status Date / Time aspirin Allergy Rapid Verified 06/01/21 16:39 Heart Rate ibuprofen [From Motrin] Allergy Anaphylaxis Verified 06/01/21 16:39 methylprednisolone Allergy Anaphylaxis Verified 06/01/21 16:39 [From Solu-Medrol] Review of Systems ROS Statement: Those systems with pertinent positive or pertinent negative responses have been documented in the HPI. ROS Other: All systems not noted in ROS Statement are negative. Past Medical History Past Medical History: Diabetes Mellitus, GERD/Reflux, Hyperlipidemia, Hypertensi on Additional Past Medical History / Comment(s): NIDDM type II-diagnosed 02/2020, seasonal allergies, cyst in L abdomin and sternum area. History of Any Multi-Drug Resistant Organisms: None Reported Additional Past Surgical History / Comment(s): EGD, bilateral myringotomy/tubes, nasal polypectomy/turbinate reduction, wisdom teeth extractions. Past Anesthesia/Blood Transfusion Reactions: No Reported Reaction Additional Past Anesthesia/Blood Transfusion Reaction / Comment(s): c/o dizziness when waking up. Past Psychological History: No Psychological Hx Reported Smoking Status: Former smoker Past Alcohol Use History: Occasional Past Drug Use History: Marijuana - Past Family History Mother Family Medical History: No Reported History Additional Family Medical History / Comment(s): Mother is healthy Father Family Medical History: Coronary Artery Disease (CAD), Diabetes Mellitus, Myocardial Infarction ([place]) Additional Family Medical History / Comment(s): Father had his first of three MIs at the age of 49 yrs. He has had multiple cardiac stents General Exam Limitations: no limitations General appearance: alert, in no apparent distress Head exam: Present: atraumatic, normocephalic, normal inspection Eye exam: Present: normal appearance, PERRL, EOMI. Absent: scleral icterus, conjunctival injection, periorbital swelling Neck exam: Present: normal inspection Respiratory exam: Present: normal lung sounds bilaterally. Absent: respiratory distress, wheezes, rales, rhonchi, stridor Cardiovascular Exam: Present: regular rate, normal rhythm, normal heart sounds. Absent: systolic murmur, diastolic murmur, rubs, gallop, clicks Extremities exam: Present: normal inspection, full ROM, normal capillary refill. Absent: tenderness, pedal edema, joint swelling, calf tenderness Back exam: Present: normal inspection, full ROM. Absent: tenderness Neurological exam: Present: alert, oriented X3 Psychiatric exam: Present: normal affect, normal mood Skin exam: Present: warm, dry, intact, normal color. Absent: rash Course Vital Signs 06/01/21 15:19 Temperature 98.4 F Pulse Rate 99 Respiratory 18 Rate Blood Pressure 160/94 O2 Sat by Pulse 96 Oximetry Medical Decision Making - Medical Decision Making 40-year-old male that fell down some stairs earlier today. X-ray lumbar spine, 4 mg of morphine, 60 mg of Norflex ordered. X-ray imaging negative for any acute fractures or dislocations. Patient most likely has muscle spasms due to fall. Case discussed with Dr. Gutiérrez, patient discharge home. - Radiology Data Radiology results: report reviewed, image reviewed X-ray lumbar spine: Normal 3 view lumbar spine. Disposition Clinical Impression: Strain of lumbar region, Back spasm Disposition: HOME SELF-CARE Condition: Stable Instructions (If sedation given, give patient instructions): Acute Low Back Pain (ED) Additional Instructions: Please return to the Emergency Department if symptoms worsen or any other concerns. Take Flexeril as prescribed. Follow-up with primary care next 1-2 days. Take Tylenol as needed for pain. Is patient prescribed a controlled substance at d/c from ED?: No Referrals: Peggy Brooks DO [Primary Care Provider] - 1-2 days Time of Disposition: 17:22
[2021-06-01 17:32] VITALS: BP 135/83; PULSE 92; RESP 16
== END 2021-06-01 17:32 | disposition home or self-care (01) ==
LOC: EC 14:53
DX: S39.012A Strain of muscle, fascia and tendon of lower back, initial encounter (principal); M62.830 Muscle spasm of back; I10 Essential (primary) hypertension; E11.9 Type 2 diabetes mellitus without complications; K21.9 Gastro-esophageal reflux disease without esophagitis; E78.5 Hyperlipidemia, unspecified; F12.90 Cannabis use, unspecified, uncomplicated; Z79.4 Long term (current) use of insulin; Z88.6 Allergy status to analgesic agent; Z87.891 Personal history of nicotine dependence; W01.0XXA Fall on same level from slipping, tripping and stumbling without subsequent striking against object, initial encounter
CPT/HCPCS: 99283; 96372 ×2; 72100; J2270; J2360

== ENCOUNTER 2022-03-28 14:45 | Emergency (ER) | payer OTHER ==
[2022-03-28 14:55] VITALS: BP 173/95; PULSE 110; RESP 18; TEMP 98.1
--- NOTE | 2022-03-28 15:00 | ED ---
Lower Extremity Injury HPI - General Chief Complaint: Extremity Injury, Lower Stated Complaint: Left Knee Pain Time Seen by Provider: 03/28/22 14:59 Source: patient Mode of arrival: ambulatory Limitations: no limitations - History of Present Illness Initial Comments: Patient is a 41-year-old male presents to the emergency room with worsening of left knee pain. He reports that for a few months now he has been having issues with his knee popping often at work but reports today that the knee felt as though it gave out on him completely and afterwards he developed significant pain to the medial and patellar aspects of his left knee. He denies any trauma to the joint. He has not had previous injuries to his left knee but does have previous injury to his right knee. He has a past medical history significant for diabetes, hypertension, hyperlipidemia and GERD. - Related Data Home Medications Medication Instructions Recorded Confirmed Atorvastatin Calcium [Lipitor] 10 mg PO HS 03/10/20 06/01/21 Escitalopram [Lexapro] 10 mg PO HS 03/10/20 06/01/21 Ascorbic Acid [Vitamin C] 500 mg PO DAILY 06/01/21 06/01/21 Budesonide-Formot 160-4.5 Mcg 2 puff INHALATION RT-BID 06/01/21 06/01/21 [Symbicort 160-4.5 Mcg Inhaler] Ergocalciferol [Vitamin D2 (1250 1,250 mcg PO Q7D 06/01/21 06/01/21 Mcg = 35815 Iu)] Insulin Glargine,Hum.rec.anlog 25 unit SQ HS 06/01/21 06/01/21 [Lantus Solostar Pen] Vitamin B Complex 1 cap PO DAILY 06/01/21 06/01/21 hydroCHLOROthiazide [Hydrodiuril] 25 mg PO DAILY 06/01/21 06/01/21 Previous Rx's Medication Instructions Recorded Metoprolol Tartrate [Lopressor] 50 mg PO BID #60 tab 07/24/17 Amoxicillin/Potassium Clav 1 tab PO Q12HR 5 Days #10 tab 09/29/20 [Augmentin 875-125 Tablet] Montelukast Sodium [Singulair] 10 mg PO HS 30 Days #30 tab 09/30/20 Acetaminophen Tab [Tylenol] 650 mg PO Q6H 10 Days #80 tab 06/01/21 Cyclobenzaprine [Flexeril] 10 mg PO TID PRN #15 tab 06/01/21 Allergies Allergy/AdvReac Type Severity Reaction Status Date / Time aspirin Allergy Rapid Verified 03/28/22 14:54 Heart Rate ibuprofen [From Motrin] Allergy Anaphylaxis Verified 03/28/22 14:54 methylprednisolone Allergy Anaphylaxis Verified 03/28/22 14:54 [From Solu-Medrol] Review of Systems ROS Statement: Those systems with pertinent positive or pertinent negative responses have been documented in the HPI. ROS Other: All systems not noted in ROS Statement are negative. Past Medical History Past Medical History: Diabetes Mellitus, GERD/Reflux, Hyperlipidemia, Hy pertension Additional Past Medical History / Comment(s): NIDDM type II-diagnosed 02/2020, seasonal allergies, cyst in L abdomin and sternum area. History of Any Multi-Drug Resistant Organisms: None Reported Additional Past Surgical History / Comment(s): EGD, bilateral myringotomy/tubes, nasal polypectomy/turbinate reduction, wisdom teeth extractions. Past Anesthesia/Blood Transfusion Reactions: No Reported Reaction Additional Past Anesthesia/Blood Transfusion Reaction / Comment(s): c/o dizziness when waking up. Past Psychological History: No Psychological Hx Reported Smoking Status: Former smoker Past Alcohol Use History: Occasional Past Drug Use History: Marijuana - Past Family History Mother Family Medical History: No Reported History Additional Family Medical History / Comment(s): Mother is healthy Father Family Medical History: Coronary Artery Disease (CAD), Diabetes Mellitus, Myocardial Infarction ([place]) Additional Family Medical History / Comment(s): Father had his first of three MIs at the age of 49 yrs. He has had multiple cardiac stents General Exam Limitations: no limitations General appearance: alert, in no apparent distress Head exam: Present: atraumatic, normocephalic, normal inspection Eye exam: Present: normal appearance, PERRL, EOMI. Absent: scleral icterus, conjunctival injection, periorbital swelling ENT exam: Present: normal exam, mucous membranes moist Neck exam: Present: normal inspection Respiratory exam: Absent: respiratory distress, accessory muscle use Cardiovascular Exam: Present: regular rate, normal rhythm, normal heart sounds. Absent: systolic murmur, diastolic murmur, rubs, gallop, clicks Left Knee exam: Present: full ROM (pain but full), tenderness (media and distal patellar region), effusion. Absent: erythema Ankle exam: Present: normal inspection Foot/Toe exam: Present: normal inspection Neurovascular tendon exam: Present: no vascular compromise Back exam: Present: normal inspection Neurological exam: Present: alert, oriented X3, CN II-XII intact Psychiatric exam: Present: normal affect, normal mood Skin exam: Present: warm, dry, intact, normal color. Absent: rash Course Vital Signs 03/28/22 14:52 Temperature 98.1 F Pulse Rate 110 H Respiratory 18 Rate Blood Pressure 173/95 O2 Sat by Pulse 95 Oximetry Medical Decision Making - Medical Decision Making Will check x-ray of left knee; given pain with range of motion and effusion may need computed tomography scan. No evidence of infectious effusion. X-ray shows effusion however in the setting of significant pain and previous injuries to right knee will check computed tomography scan of left knee. Computed tomography scan left knee impression shows mild joint effusion. No fracture seen. No evidence of any significant arthritic disease. Findings reviewed with patient. Will immobilize patient. Encouraged breast ice and elevation. Will keep off work and have him follow-up with orthopedist outpatient for further evaluation and treatment. Case discussed with Dr. Adams - Radiology Data Radiology results: report reviewed, image reviewed 3 views of left knee x-ray: Left knee joint effusion; suprapatellar increased density is consistent with joint effusion CT left knee without contrast impression: There is mild knee joint effusion. No fracture seen. No evidence of any significant arthritic disease. Disposition Clinical Impression: Knee pain, left Disposition: HOME SELF-CARE Instructions (If sedation given, give patient instructions): Knee Pain (ED) Additional Instructions: Please keep knee immobilized, rest and ice joint. Avoid high impact activities. Please follow up with orthopedist in your primary care provider. Utilize Tylenol or ibuprofen [id number] for pain as needed. Please return to the Emergency Department if symptoms worsen or any other concerns. Is patient prescribed a controlled substance at d/c from ED?: No Referrals: Peggy Brooks DO [Primary Care Provider] - 1-2 days Raphael Ivey MD [STAFF PHYSICIAN] - 1-2 days Forms: Work/School Release Time of Disposition: 18:21
--- NOTE | 2022-03-28 15:39 | XR ---
Left knee HISTORY: Pain 3 views the left knee Bone mineralization, joint spaces and alignment are maintained. Suprapatellar increased density is co nsistent with joint effusion. IMPRESSION: Left knee joint effusion
--- NOTE | 2022-03-28 17:57 | CT ---
EXAMINATION TYPE: CT knee LT wo con DATE OF EXAM: 03/28/2022 COMPARISON: None HISTORY: pain CT DLP: 167.7 mGycm Automated exposure control for dose reduction was used. Images obtained from the distal femur to the proximal tibia with no contrast. The medial and lateral joint spaces are fairly normal. No fracture seen. Patella is intact. There is a small knee joint effusion. No evidence of focal bone destruction. No fracture seen. There is no louie dence of a soft tissue mass. IMPRESSION: There is a mild knee joint effusion. No fracture seen. No evidence of any significant arthritic disea se.
== END 2022-03-28 18:47 | disposition home or self-care (01) ==
LOC: EC 14:45
DX: M25.562 Pain in left knee (principal); E11.9 Type 2 diabetes mellitus without complications; E78.5 Hyperlipidemia, unspecified; I10 Essential (primary) hypertension; Z87.891 Personal history of nicotine dependence; Z88.0 Allergy status to penicillin; Z88.6 Allergy status to analgesic agent; Z88.8 Allergy status to other drugs, medicaments and biological substances
CPT/HCPCS: 99284

== ENCOUNTER 2023-05-07 16:12 | Emergency (ER) | payer MEDICARE, OTHER ==
[2023-05-07 16:18] VITALS: BP 165/108; PULSE 93; RESP 18; TEMP 98.1
--- NOTE | 2023-05-07 18:06 | ED ---
Upper Extremity HPI - General Chief Complaint: Extremity Injury, Upper Stated Complaint: Numbness in both hand, no grib to anything Time Seen by Provider: 05/07/23 17:35 Source: patient, RN notes reviewed Mode of arrival: ambulatory Limitations: no limitations - History of Present Illness Initial Comments: Patient presents to emergency department with ongoing worsening numbness and tingling in both hands with bilateral wrist pain. 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 Patient been using night splints as well. Patient is a diabetic and has an ALLERGY to NSAIDs and aspirin. Patient denying any other symptomology. Seems to be worse at work and after repetitive movements. Also worse in the morning. No headache, no fever or chills, no changes in vision or hearing, no sore throat or difficulty with speech, no neck pain, no chest pain or shortness of breath, no abdominal pain, no nausea or vomiting, no changes in urination or bowel movements, , no skin rashes or lesions. Past medical, surgical, social, and family history reviewed. - Related Data Home Medications Medication Instructions Recorded Confirmed Atorvastatin Calcium [Lipitor] 10 mg PO HS 03/10/20 06/01/21 Escitalopram [Lexapro] 10 mg PO HS 03/10/20 06/01/21 Ascorbic Acid [Vitamin C] 500 mg PO DAILY 06/01/21 06/01/21 Budesonide-Formot 160-4.5 Mcg 2 puff INHALATION RT-BID 06/01/21 06/01/21 [Symbicort 160-4.5 Mcg Inhaler] Ergocalciferol [Vitamin D2 (1250 1,250 mcg PO Q7D 06/01/21 06/01/21 Mcg = 79653 Iu)] Insulin Glargine,Hum.rec.anlog 25 unit SQ HS 06/01/21 06/01/21 [Lantus Solostar Pen] Vitamin B Complex 1 cap PO DAILY 06/01/21 06/01/21 hydroCHLOROthiazide [Hydrodiuril] 25 mg PO DAILY 06/01/21 06/01/21 Previous Rx's Medication Instructions Recorded Metoprolol Tartrate [Lopressor] 50 mg PO BID #60 tab 07/24/17 Amoxicillin/Potassium Clav 1 tab PO Q12HR 5 Days #10 tab 09/29/20 [Augmentin 875-125 Tablet] Montelukast Sodium [Singulair] 10 mg PO HS 30 Days #30 tab 09/30/20 Acetaminophen Tab [Tylenol] 650 mg PO Q6H 10 Days #80 tab 06/01/21 Cyclobenzaprine [Flexeril] 10 mg PO TID PRN #15 tab 06/01/21 Allergies Allergy/AdvReac Type Severity Reaction Status Date / Time aspirin Allergy Rapid Verified 05/07/23 16:17 Heart Rate ibuprofen [From Motrin] Allergy Anaphylaxis Verified 05/07/23 16:17 methylprednisolone Allergy Anaphylaxis Verified 05/07/23 16:17 [From Solu-Medrol] Review of Systems ROS Statement: Those systems with pertinent positive or pertinent negative responses have been documented in the HPI. ROS Other: All systems not noted in ROS Statement are negative. Past Medical History Past Medical History: Diabetes Mellitus, GERD/Reflux, Hyperlipidemia, Hypertension Additional Past Medical History / Comment(s): NIDDM type II-diagnosed 02/2020, seasonal allergies, cyst in L abdomin and sternum area. History of Any Multi-Drug Resistant Organisms: None Reported Additional Past Surgical History / Comment(s): EGD, bilateral myringotomy/tubes, nasal polypectomy/turbinate reduction, wisdom teeth extractions. Past Anesthesia/Blood Transfusion Reactions: No Reported Reaction Additional Past Anesthesia/Blood Transfusion Reaction / Comment(s): c/o dizziness when waking up. Past Psychological History: No Psychological Hx Reported Smoking Status: Former smoker Past Alcohol Use History: Occasional Past Drug Use History: Marijuana - Past Family History Mother Family Medical History: No Reported History Additional Family Medical History / Comment(s): Mother is healthy Father Family Medical History: Coronary Artery Disease (CAD), Diabetes Mellitus, Myocardial Infarction ([place]) Additional Family Medical History / Comment(s): Father had his first of three MIs at the age of 49 yrs. He has had multiple cardiac stents General Exam Limitations: no limitations General appearance: alert, in no apparent distress Head exam: Present: atraumatic, normocephalic, normal inspection Eye exam: Present: normal appearance, PERRL, EOMI. Absent: scleral icterus, conjunctival injection, periorbital swelling ENT exam: Present: normal exam, normal oropharynx, mucous membranes moist, normal external ear exam Neck exam: Present: normal inspection. Absent: tenderness, meningismus, lymphadenopathy Respiratory exam: Present: normal lung sounds bilaterally. Absent: respiratory distress, wheezes, rales, rhonchi, stridor, accessory muscle use Cardiovascular Exam: Present: regular rate, normal rhythm, normal heart sounds. Absent: systolic murmur, diastolic murmur, rubs, gallop, clicks GI/Abdominal exam: Present: soft, normal bowel sounds. Absent: distended, tenderness, guarding, rebound, rigid Extremities exam: Present: normal inspection, full ROM, normal capillary refill, other (Patient has both a positive Tinel's and Phalen's test. Distal sensation intact to light touch. There is no evidence of atrophy. Essentially full range of motion with all phalanges, hand, wrist. Pulses are 2+ out of 4. Capillary refill less than 2 seconds. TMs are bilateral). Absent: tenderness, pedal edema, joint swelling, calf tenderness Back exam: Present: normal inspection Neurological exam: Present: alert, oriented X3, CN II-XII intact Psychiatric exam: Present: normal affect, normal mood Skin exam: Present: warm, dry, intact, normal color. Absent: rash Course Vital Signs 05/07/23 16:15 Temperature 98.1 F Pulse Rate 93 Respiratory 18 Rate Blood Pressure 165/108 O2 Sat by Pulse 99 Oximetry Medical Decision Making - Medical Decision Making Was pt. sent in by a medical professional or institution? @ -no Did you speak to anyone other than the patient for history? @ -Patient only Did you review nursing and triage notes? @ -Agree Were old charts reviewed? @ -No Differential Diagnosis? @ -Differential diagnosis includes but not limited to: Median neuropathy, peripheral neuropathy, diabetic neuropathy, ulnar neuropathy. Given the patient's symptomatology, median neuropathy is the most likely culprit. Patient has paresthesias in the distribution of the median nerve with a positive Tinel's and Phalen's. No evidence of infectious etiology. Patient's sugars have been running adequately. Patient also has evidence of hypertension which is asymptomatic. EKG interpreted by me (3pts min.)? @ -[none] X-rays interpreted by me (1pt min.)? @ -[none] CT interpreted by me (1pt min.)? @ -[none] U/S interpreted by me (1pt. min.)? @ -[none] What testing was considered but not performed? (CT, X-rays, U/S, labs)? Why? @ Did consider imaging. However given the patient's presentation I did not feel that this would change course of therapy or disposition. Deferred for orthopedic evaluation. Patient likely needs an EMG. What meds were considered but not given? Why? @ -[none] Did you discuss the management of the patient with other professionals? @ -The case was discussed in detail with ED attending physician. Presentation, findings, treatment plan discussed in detail. Did you reconcile home meds? @ -[none] Was smoking cessation discussed for >3mins.? @ -[none] Was critical care preformed (if so, how long)? @ -[none] Were there social determinants of health that impacted care today? How? (Homelessness, low income, unemployed, alcoholism, drug addiction, trans portation, low edu. Level, literacy, decrease access to med. care, fci, rehab)? @ -Works in a factory job with repetitive movement, marijuana user Was there de-escalation of care discussed even if they declined? (Discuss DNR or withdrawal of care, Hospice)? @ -[Discuss DNR or withdrawal of care, Hospice?] What co-morbidities impacted this encounter? (DM, HTN, Smoking, COPD, CAD, Cancer, CVA, Hep., AIDS, mental health diagnosis, sleep apnea, morbid obesity)? @ -Diabetes mellitus, elevated blood pressure1 have the patient follow-up with his primary care physician as well. Was patient admitted / discharged? @ -Discharged Undiagnosed new problem with uncertain prognosis? @ -Noted previous diagnosis of median neuropathy. Likely not a threat to life but certainly could impair the patient's ability to work. Drug Therapy requiring intensive monitoring for toxicity (Heparin, Nitro, Insulin, Cardizem)? @ -[none] Were any procedures done? @ -[none] Diagnosis/symptom? @ -Bilateral median neuropathy Acute, or Chronic, or Acute on Chronic? @ -Subacute Uncomplicated (without systemic symptoms) or Complicated (systemic symptoms)? @ -Uncomplicated Side effects of treatment? @ -[none] Exacerbation, Progression, or Severe Exacerbation] @ -Progression Poses a threat to life or bodily function? @ -[no] Orthopedic referral, continue bilateral splinting, acetaminophen, patient educated on etiology, work restrictions given. Patient was told to return to the ER for any signs or symptoms worsen. Told to return immediately if any other problems arise. All questions answered. Treatment plan discussed. Patient in agreement Every effort has been made to ensure accuracy of this dictation. However, due to the limitations of electronic medical records and dictation devices, errors in charting still occur. 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 Continue the night splints. CPK 3 different line. Light duty as directed. Continue Tylenol 500 mg every 4- 6 hours for pain control. Elevate both hands when possible. Follow-up with your regular physician as directed. Return to the ER immediately if any symptoms worsen, new symptoms arise, or any other problems develop. Is patient prescribed a controlled substance at d/c from ED?: No Referrals: Elisa Ortega DO [Doctor of Osteopathic Medicine] - 1-2 days Time of Disposition: 18:00
== END 2023-05-07 18:18 | disposition home or self-care (01) ==
LOC: EC 16:12
DX: G56.13 Other lesions of median nerve, bilateral upper limbs (principal); I10 Essential (primary) hypertension; E78.5 Hyperlipidemia, unspecified; E11.40 Type 2 diabetes mellitus with diabetic neuropathy, unspecified; F12.90 Cannabis use, unspecified, uncomplicated; Z79.82 Long term (current) use of aspirin; Z79.4 Long term (current) use of insulin; Z87.891 Personal history of nicotine dependence; Z88.6 Allergy status to analgesic agent; Z88.8 Allergy status to other drugs, medicaments and biological substances
CPT/HCPCS: 99283

== ENCOUNTER 2023-09-26 15:05 | Emergency (ER) | payer SELFPAY ==
[2023-09-26 15:19] VITALS: BP 153/99; PULSE 68; RESP 16; TEMP 97.9
--- NOTE | 2023-09-26 16:09 | ED ---
Upper Extremity HPI - General Chief Complaint: Extremity Injury, Upper Stated Complaint: L arm injury Time Seen by Provider: 09/26/23 16:08 Source: patient, RN notes reviewed Mode of arrival: ambulatory Limitations: no limitations - History of Present Illness Initial Comments: Patient is a 43-year-old male presented ER with chief complaint of left arm s welling. Patient states this started last night. Patient denies any known trauma. Patient states it is extremely tender to touch and difficult to move his arm. Reports very hard for him to get dressed this morning. Patient denies any history of blood clots. Patient denies any limited range of motion. Patient denies any chest pain, shortness of breath, fevers, chills, night sweats. - Related Data Home Medications Medication Instructions Recorded Confirmed Atorvastatin Calcium [Lipitor] 10 mg PO HS 03/10/20 06/01/21 Escitalopram [Lexapro] 10 mg PO HS 03/10/20 06/01/21 Ascorbic Acid [Vitamin C] 500 mg PO DAILY 06/01/21 06/01/21 Budesonide-Formot 160-4.5 Mcg 2 puff INHALATION RT-BID 06/01/21 06/01/21 [Symbicort 160-4.5 Mcg Inhaler] Ergocalciferol [Vitamin D2 (1250 1,250 mcg PO Q7D 06/01/21 06/01/21 Mcg = 85246 Iu)] Insulin Glargine,Hum.rec.anlog 25 unit SQ HS 06/01/21 06/01/21 [Lantus Solostar Pen] Vitamin B Complex 1 cap PO DAILY 06/01/21 06/01/21 hydroCHLOROthiazide [Hydrodiuril] 25 mg PO DAILY 06/01/21 06/01/21 Previous Rx's Medication Instructions Recorded Metoprolol Tartrate [Lopressor] 50 mg PO BID #60 tab 07/24/17 Amoxicillin/Potassium Clav 1 tab PO Q12HR 5 Days #10 tab 09/29/20 [Augmentin 875-125 Tablet] Montelukast Sodium [Singulair] 10 mg PO HS 30 Days #30 tab 09/30/20 Acetaminophen Tab [Tylenol] 650 mg PO Q6H 10 Days #80 tab 06/01/21 Cyclobenzaprine [Flexeril] 10 mg PO TID PRN #15 tab 06/01/21 Allergies Allergy/AdvReac Type Severity Reaction Status Date / Time aspirin Allergy Rapid Verified 09/26/23 15:15 Heart Rate ibuprofen [From Motrin] Allergy Anaphylaxis Verified 09/26/23 15:15 methylprednisolone Allergy Anaphylaxis Verified 09/26/23 15:15 [From Solu-Medrol] Review of Systems ROS Statement: Those systems with pertinent positive or pertinent negative responses have been documented in the HPI. ROS Other: All systems not noted in ROS Statement are negative. Past Medical History Past Medical History: Diabetes Mellitus, GERD/Reflux, Hyperlipidemia, Hypertension Additional Past Medical History / Comment(s): NIDDM type II-diagnosed 02/2020, seasonal allergies, cyst in L abdomin and sternum area. History of Any Multi-Drug Resistant Organisms: None Reported Additional Past Surgical History / Comment(s): EGD, bilateral myringotomy/tubes, nasal polypectomy/turbinate reduction, wisdom teeth extractions. Past Anesthesia/Blood Transfusion Reactions: No Reported Reaction Additional Past Anesthesia/Blood Transfusion Reaction / Comment(s): c/o dizziness when waking up. Past Psychological History: No Psychological Hx Reported Smoking Status: Former smoker Past Alcohol Use History: Occasional Past Drug Use History: Marijuana - Past Family History Mother Family Medical History: No Reported History Additional Family Medical History / Comment(s): Mother is healthy Father Family Medical History: Coronary Artery Disease (CAD), Diabetes Mellitus, Myocardial Infarction (VT) Additional Family Medical History / Comment(s): Father had his first of three MIs at the age of 49 yrs. He has had multiple cardiac stents General Exam - General Exam Comments Initial Comments: Visual Physical Exam Vital signs reviewed General: Well-appearing, nontoxic, no acute distress. Head: Normocephalic, atraumatic Eyes: PERRLA, EOMI ENT: Airway patent Chest: Nonlabored breathing Skin: No visual rash, normal skin tone Neuro: Alert and oriented 3 Musculoskeletal: Area of swelling noted to left forearm no ecchymosis or erythema present Limitations: no limitations General appearance: alert, in no apparent distress Respiratory exam: Present: normal lung sounds bilaterally. Absent: respiratory distress, wheezes, rales, rhonchi, stridor Cardiovascular Exam: Present: regular rate, normal rhythm, normal heart sounds. Absent: systolic murmur, diastolic murmur, rubs, gallop, clicks Extremities exam: Present: other (Exquisitely tender bump on left forearm. No erythema or contusion present. 2+ left radial pulse. Full range of motion of wrist and elbow. Sensation intact) Neurological exam: Present: alert, oriented X3, CN II-XII intact Psychiatric exam: Present: normal affect, normal mood Skin exam: Present: warm, dry, intact, normal color. Absent: rash Course Vital Signs 09/26/23 15:11 Temperature 97.9 F Pulse Rate 68 Respiratory 16 Rate Blood Pressure 153/99 O2 Sat by Pulse 95 Oximetry Medical Decision Making - Medical Decision Making I performed the quick note portion of the exam. Electronically signed by Donna Wong PA-C Was pt. sent in by a medical professional or institution ([facility], [facility], urgent care, hospital, or senior care...) When possible be specific @ -No Did you speak to anyone other than the patient for history (EMS, parent, family, police, friend...)? What history was obtained from this source @ -No Did you review nursing and triage notes (agree or disagree)? Why? @ -I reviewed and agree with nursing and triage notes Were old charts reviewed (outside hosp., previous admission, EMS record, old EKG, old radiological studies, urgent care reports/EKG's, senior care records)? Report findings @ -No old charts were reviewed Differential Diagnosis (chest pain, altered mental status, abdominal pain women, abdominal pain men, vaginal bleeding, weakness, fever, dyspnea, syncope, headache, dizziness, GI bleed, back pain, seizure, CVA, palpatations, mental health, musculoskeletal)? @ -Differential Musculoskeletal: Muscular strain, contusion, ligament sprain, fracture, arthritis, septic arthritis, bursitis, cellulitis, muscle spasm, nerve compression, DVT, arterial occlusion, herpes zoster, electrolyte abnormality, tumor.... This is not meant to be in all inclusive list EKG interpreted by me (3pts min.). @ -None X-rays interpreted by me (1pt min.). @ -None done CT interpreted by me (1pt min.). @ -None done U/S interpreted by me (1pt. min.). @ -Venous duplex ultrasound showed findings significant of superficial thrombophlebitis in left basilic vein. What testing was considered but not performed or refused? (CT, X-rays, U/S, labs)? Why? @ -None What meds were considered but not given or refused? Why? @ -None Did you discuss the management of the patient with other professionals (professionals i.e. , PA, EDGE [facility]NER, lab, RT, psych nurse, social work instructor, digital production operator, teacher, mobile patrol officer, high risk case manager)? Give summary @ -No Was smoking cessation discussed for >3mins.? @ -No Was critical care preformed (if so, how long)? @ -No Were there social determinants of health that impacted care today? How? (Homelessness, low income, unemployed, alcoholism, drug addiction, transportation, low edu. Level, literacy, decrease access to med. care, [facility], rehab)? @ -No Was there de-escalation of care discussed even if they declined (Discuss DNR or withdrawal of care, Hospice)? DNR status @ -No What co-morbidities impacted this encounter? (DM, HTN, Smoking, COPD, CAD, Cancer, CVA, ARF, Chemo, Hep., AIDS, mental health diagnosis, sleep apnea, morbid obesity)? @ -None Was patient admitted / discharged? Hospital course, mention meds given and route, prescriptions, significant lab abnormalities, going to OR and other pertinent info. @ -Discharge. Patient is a 43-year-old male presented ER with chief complaint of left arm pain. Vital stable. Exam was significant for a tender on left forearm. Patient was neurovascularly intact. Venous duplex ultrasound showed findings significant of a superficial thrombophlebitis in left basilic vein. I discussed imaging findings with patient. I instructed him to use compression and heat for symptom control. Return parameters were discussed. Patient will be discharged in stable condition with follow-up to PCP. Patient expressed understanding and agreement with care plan. Undiagnosed new problem with uncertain prognosis? @ -No Drug Therapy requiring intensive monitoring for toxicity (Heparin, Nitro, Insulin, Cardizem)? @ -No Were any procedures done? @ -No Diagnosis/symptom? @ -Superficial thrombophlebitis Acute, or Chronic, or Acute on Chronic? @ -Acute Uncomplicated (without systemic symptoms) or Complicated (systemic symptoms)? @ -Uncomplicated Side effects of treatment? @ -No Exacerbation, Progression, or Severe Exacerbation? @ -No Poses a threat to life or bodily function? How? (Chest pain, USA, VT, pneumonia, PE, COPD, DKA, ARF, appy, cholecystitis, CVA, Diverticulitis, Homicidal, Suicidal, threat to staff... and all critical care pts) @ -No - Radiology Data Radiology results: report reviewed, image reviewed Disposition Clinical Impression: Superficial thrombophlebitis Disposition: HOME SELF-CARE Condition: Stable Instructions (If sedation given, give patient instructions): Superficial Thrombophlebitis (ED) Additional Instructions: Please use compression and heat for symptom control. Please follow-up with PCP. Please return to ER for any new or worsening symptoms. Is patient prescribed a controlled substance at d/c from ED?: No Referrals: Peggy Brooks DO [Primary Care Provider] - 1-2 days Time of Disposition: 18:54
--- NOTE | 2023-09-26 17:24 | US ---
EXAMINATION TYPE: US venous doppler duplex UE LT DATE OF EXAM: 09/26/2023 COMPARISON: NONE CLINICAL INDICATION: Male, 43 years old with history of swelling; LUE swelling SIDE PERFORMED: Left Left Arm: Negative for DVT, however, there is superficial thrombus within the left basilic vein withi n the upper left arm. This thrombus does not appear to be within proximity of the deep venous system. IMPRESSION: 1. No evidence for deep vein thrombosis. 2. Superficial thrombophlebitis left basilic vein.
== END 2023-09-26 19:06 | disposition home or self-care (01) ==
LOC: EC 15:05
DX: I82.612 Acute embolism and thrombosis of superficial veins of left upper extremity (principal); E11.9 Type 2 diabetes mellitus without complications; E78.5 Hyperlipidemia, unspecified; I10 Essential (primary) hypertension; F12.90 Cannabis use, unspecified, uncomplicated; Z87.891 Personal history of nicotine dependence; Z79.4 Long term (current) use of insulin; Z79.899 Other long term (current) drug therapy; Z88.5 Allergy status to narcotic agent; Z88.6 Allergy status to analgesic agent; Z88.8 Allergy status to other drugs, medicaments and biological substances
CPT/HCPCS: 99283

== ENCOUNTER 2023-11-08 15:43 | Emergency (ER) | payer SELFPAY ==
[2023-11-08 16:35] LABS: Basophils % (A) 1 %; Eosinophils # (A) 0.2 k/uL (0-0.7); Eosinophils % (A) 3 %; HCT 44.2 % (39.0-53.0); HGB 14.4 gm/dL (13.0-17.5); Lymphocytes # (A) 1.2 k/uL (1.0-4.8); Lymphocytes % (A) 21 %; MCH 30.4 pg (25.0-35.0); MCHC 32.5 g/dL (31.0-37.0); MCV 93.3 fL (80.0-100.0); Mean Platelet Volume 7.5; Monocytes # (A) 0.3 k/uL (0-1.0); Monocytes % (A) 6 %; Neutrophils # (A) 3.6 k/uL (1.3-7.7); Neutrophils % (A) 68 %; Platelet Count 226 k/uL (150-450); RBC 4.73 m/uL (4.30-5.90); RDW 12.5 % (11.5-15.5); WBC 5.4 k/uL (3.8-10.6)
--- NOTE | 2023-11-08 16:36 | ED ---
Chest Pain HPI - General Source: patient, RN notes reviewed Mode of arrival: ambulatory Limitations: no limitations <Martina Wong - Last Filed: 11/08/23 16:35> <Antwan Washington - Last Filed: 11/08/23 22:55> - General Chief Complaint: Chest Pain Stated Complaint: chest pains Time Seen by Provider: 11/08/23 16:36 - History of Present Illness Initial Comments: Patient is a 43-year-old male presented to ER with chief complaint of chest pain. He states that been going on for the past couple weeks. He also endorses dizziness denies any shortness of breath. No personal cardiac history. There is a family cardiac history. (Martina Wong) This 43-year-old male presents with complaint of some left-sided chest pain. He states that this is been present for the past 2-3 weeks. He states that it is occasionally pressure-like and sometimes sharp. It is somewhat pruritic in nature at times. He does also relate that he had some pain into his left forearm and was seen in the ER 2-3 weeks ago and diagnosed with superficial blood clot. He states that he still has some pain to this area. He denies any history of cardiac disease. He does relate that he has a strong family history of cardiac disease. He did have a remote stress test which was negative. He denies any leg pain or swelling. He has no history of DVT or PE. There's been no fevers or chills. He does complain of occasional dizziness. No other complaints or modifying factors. (Antwan Washington) - Related Data Home Medications Medication Instructions Recorded Confirmed Atorvastatin Calcium [Lipitor] 10 mg PO HS 03/10/20 06/01/21 Escitalopram [Lexapro] 10 mg PO HS 03/10/20 06/01/21 Ascorbic Acid [Vitamin C] 500 mg PO DAILY 06/01/21 06/01/21 Budesonide-Formot 160-4.5 Mcg 2 puff INHALATION RT-BID 06/01/21 06/01/21 [Symbicort 160-4.5 Mcg Inhaler] Ergocalciferol [Vitamin D2 (1250 1,250 mcg PO Q7D 06/01/21 06/01/21 Mcg = 67989 Iu)] Insulin Glargine,Hum.rec.anlog 25 unit SQ HS 06/01/21 06/01/21 [Lantus Solostar Pen] Vitamin B Complex 1 cap PO DAILY 06/01/21 06/01/21 hydroCHLOROthiazide [Hydrodiuril] 25 mg PO DAILY 06/01/21 06/01/21 Previous Rx's Medication Instructions Recorded Metoprolol Tartrate [Lopressor] 50 mg PO BID #60 tab 07/24/17 Amoxicillin/Potassium Clav 1 tab PO Q12HR 5 Days #10 tab 09/29/20 [Augmentin 875-125 Tablet] Montelukast Sodium [Singulair] 10 mg PO HS 30 Days #30 tab 09/30/20 Acetaminophen Tab [Tylenol] 650 mg PO Q6H 10 Days #80 tab 06/01/21 Cyclobenzaprine [Flexeril] 10 mg PO TID PRN #15 tab 06/01/21 Allergies Allergy/AdvReac Type Severity Reaction Status Date / Time aspirin Allergy Rapid Verified 11/08/23 15:53 Heart Rate ibuprofen [From Motrin] Allergy Anaphylaxis Verified 11/08/23 15:53 methylprednisolone Allergy Anaphylaxis Verified 11/08/23 15:53 [From Solu-Medrol] Review of Systems ROS Other: All systems not noted in ROS Statement are negative. <Martina Wong - Last Filed: 11/08/23 16:35> ROS Other: All systems not noted in ROS Statement are negative. <Antwan Washington - Last Filed: 11/08/23 22:55> ROS Statement: Those systems with pertinent positive or pertinent negative responses have been documented in the HPI. Past Medical History Past Medical History: Diabetes Mellitus, GERD/Reflux, Hyperlipidemia, Hypertension Additional Past Medical History / Comment(s): NIDDM type II-diagnosed 02/2020, seasonal allergies, cyst in L abdomin and sternum area. History of Any Multi-Drug Resistant Organisms: None Reported Additional Past Surgical History / Comment(s): EGD, bilateral myringotomy/tubes, nasal polypectomy/turbinate reduction, wisdom teeth extractions. Past Anesthesia/Blood Transfusion Reactions: No Reported Reaction Additional Past Anesthesia/Blood Transfusion Reaction / Comment(s): c/o dizziness when waking up. Past Psychological History: No Psychological Hx Reported Smoking Status: Former smoker Past Alcohol Use History: Occasional Past Drug Use History: Marijuana - Past Family History Mother Family Medical History: No Reported History Additional Family Medical History / Comment(s): Mother is healthy Father Family Medical History: Coronary Artery Disease (CAD), Diabetes Mellitus, Myocardial Infarction (HI) Additional Family Medical History / Comment(s): Father had his first of three MIs at the age of 49 yrs. He has had multiple cardiac stents <Martina Wong - Last Filed: 11/08/23 16:35> General Exam Limitations: no limitations <Martina Wong - Last Filed: 11/08/23 16:35> <Antwan Washington - Last Filed: 11/08/23 22:55> - General Exam Comments Initial Comments: Visual Physical Exam Vital signs reviewed General: Well-appearing, nontoxic, no acute distress. Head: Normocephalic, atraumatic Eyes: PERRLA, EOMI ENT: Airway patent Chest: Nonlabored breathing Skin: No visual rash, normal skin tone Neuro: Alert and oriented 3 Musculoskeletal: No gross abnormalities (Martina Wong) GENERAL: The patient is well nourished and well hydrated. VITAL SIGNS: Heart rate, blood pressure, respiratory rate reviewed as recorded in nurse's notes. EYES: Pupils are round and reactive. Extraocular movements are intact. No conjunctival / lid redness or swelling. ENT: No external evidence of injury, swelling, or ecchymosis. Airway is patent. Throat is clear. NECK: Nontender. No swelling or evidence of injury. No subcutaneous emphysema. Trachea is midline. No thyroid mass. HEART: Regular rate and rhythm. Good peripheral pulses. LUNGS/CHEST: Breath sounds clear and equal bilaterally. No rales, rhonchi, or wheezes. No ecchymosis, subcutaneous emphysema, or tenderness. ABDOMEN: Abdomen soft without tenderness. No palpable masses or organomegaly. No peritoneal signs. No abdominal wall swelling or ecchymosis. EXTREMITIES: Minimal tenderness noted to the superficial vein left forearm. Also different swelling or erythema noted. Normal muscle tone and function. No t horacolumbar tenderness. NEUROLOGIC: Sensation is grossly intact. Cranial nerve exam reveals face is symmetrical, tongue is midline, speech is clear. SKIN: No abrasions or ecchymosis is noted. No induration or masses noted. PSYCHIATRIC: Alert and oriented. Appropriate behavior and judgment. (Antwan Washington) Course Vital Signs 11/08/23 11/08/23 15:50 21:42 Temperature 98 F 97.9 F Pulse Rate 92 93 Respiratory 18 20 Rate Blood Pressure 170/102 158/90 O2 Sat by Pulse 99 Oximetry Chest Pain MDM <Martina Wong - Last Filed: 11/08/23 16:35> <Antwan Washington - Last Filed: 11/08/23 22:55> - [facility] I performed the quick note portion of the exam. Electronically signed by Martina Wong PA-C (Martina Wong) The patient was seen and examined. All diagnostics were reviewed. The EKG shows a normal sinus rhythm at a rate of 93. There is no acute ST or T-wave changes identified per my interpretation. The intervals are normal. The laboratory overall does not show any acute significant abnormalities. The chest x-ray also did not show any acute abnormalities per my interpretation. A long discussion was held in regards to admission versus discharge. Patient would prefer not to be admitted. A repeat troponin is completed and also is negative. The CT angiogram of the chest also was completed and this does not show any evidence of pulmonary embolism or acute process per my interpretation. Risks and benefits of admission versus discharge were discussed in detail and he still wants to be discharged home. It is felt as though he benefit from close follow- up with primary care as well as cardiology. He likely will need stress test and echocardiogram outpatient basis. Return parameters are discussed in detail. Tylenol is recommended for pain as well. Was pt. sent in by a medical professional or institution ([facility], SENIOR WINDOWS SYSTEMS ENGINEER, urgent care, hospital, or [facility]...) When possible be specific @ -[No] Did you speak to anyone other than the patient for history (EMS, parent, family, police, friend...)? What history was obtained from this source @ -[No] Did you review nursing and triage notes (agree or disagree)? Why? @ -[I reviewed and agree with nursing and triage notes] Were old charts reviewed (outside hosp., previous admission, EMS record, old EKG, old radiological studies, urgent care reports/EKG's, [facility] records)? Report findings @ -[No old charts were reviewed] Differential Diagnosis (chest pain, altered mental status, abdominal pain women, abdominal pain men, vaginal bleeding, weakness, fever, dyspnea, syncope, headache, dizziness, GI bleed, back pain, seizure, CVA, palpatations, mental health, musculoskeletal)? @ -Chest pain, unstable angina, esophageal reflux disorder, pleuritis. EKG interpreted by me (3pts min.). @ -[As above] X-rays interpreted by me (1pt min.). @ -As above CT interpreted by me (1pt min.). @ -[None done] U/S interpreted by me (1pt. min.). @ -[None done] What testing was considered but not performed or refused? (CT, X-rays, U/S, labs)? Why? @ -[None] What meds were considered but not given or refused? Why? @ -[None] Did you discuss the management of the patient with other professionals (professionals i.e. , PA, SENIOR WINDOWS SYSTEMS ENGINEER, lab, RT, psych nurse, social media campaign manager, superintendent production, teacher, [employer] plans staff officer, correctional casework specialist)? Give summary @ -[No] Was smoking cessation discussed for >3mins.? @ -[No] Was critical care preformed (if so, how long)? @ -[No] Were there social determinants of health that impacted care today? How? (Homelessness, low income, unemployed, alcoholism, drug addiction, transportation, low edu. Level, literacy, decrease access to med. care, [facility], rehab)? @ -[No] Was there de-escalation of care discussed even if they declined (Discuss DNR or withdrawal of care, Hospice)? DNR status @ -[No] What co-morbidities impacted this encounter? (DM, HTN, Smoking, COPD, CAD, Cancer, CVA, ARF, Chemo, Hep., AIDS, mental health diagnosis, sleep apnea, morbid obesity)? @ -[None] Was patient admitted / discharged? Hospital course, mention meds given and route, prescriptions, significant lab abnormalities, going to OR and other pertinent info. @ -Patient was admitted, please see above. Undiagnosed new problem with uncertain prognosis? @ -[No] Drug Therapy requiring intensive monitoring for toxicity (Heparin, Nitro, Insulin, Cardizem)? @ -[No] Were any procedures done? @ -[No] Diagnosis/symptom? @ -Chest pain Acute, or Chronic, or Acute on Chronic? @ -Acute Uncomplicated (without systemic symptoms) or Complicated (systemic symptoms)? @ -Uncomplicated Side effects of treatment? @ -[No] Exacerbation, Progression, or Severe Exacerbation? @ -[No] Poses a threat to life or bodily function? How? (Chest pain, USA, HI, pneumonia, PE, COPD, DKA, ARF, appy, cholecystitis, CVA, Diverticulitis, Homicidal, Suicidal, threat to staff... and all critical care pts) @ -[No] (Antwan Washington) Disposition <Martina Wong - Last Filed: 11/08/23 16:35> Is patient prescribed a controlled substance at d/c from ED?: No Time of Disposition: 20:51 <Antwan Washington - Last Filed: 11/08/23 22:55> Clinical Impression: Chest pain Disposition: HOME SELF-CARE Condition: Good Instructions (If sedation given, give patient instructions): Chest Pain (ED) Additional Instructions: Please take tylenol if needed for pain. Referrals: Peggy Brooks DO [Primary Care Provider] - 1-2 days Erasmo Juarez DO [STAFF PHYSICIAN] - 1-2 days
[2023-11-08 16:46] LABS: Partial Thromboplastin Time 24.3 sec (22.0-30.0); Prothrombin Time 10.5 sec (10.0-12.5)
[2023-11-08 17:07] LABS: ALT 15 U/L (4-49); AST 20 U/L (17-59); African American GFR (CKD) >90 (>60 ml/min/1.73 sqM); Albumin 4.1 g/dL (3.5-5.0); Alkaline Phosphatase 73 U/L (38-126); Anion Gap 6 mmol/L; Blood Urea Nitrogen 19 mg/dL (9-20); Calcium 9.2 mg/dL (8.4-10.2); Carbon Dioxide 25 mmol/L (22-30); Chloride 109 mmol/L (98-107); Glucose 154 mg/dL (74-99); Magnesium 2.1 mg/dL (1.6-2.3); Non-African American GFR(CKD) >90 (>60 ml/min/1.73 sqM); Potassium 4.2 mmol/L (3.5-5.1); Sodium 140 mmol/L (137-145); Total Bilirubin 0.4 mg/dL (0.2-1.3); Total Protein 6.9 g/dL (6.3-8.2)
--- NOTE | 2023-11-08 17:14 | XR ---
EXAMINATION TYPE: XR chest 2V DATE OF EXAM: 11/08/2023 COMPARISON: 09/29/2020 HISTORY: 43-year-old male with chest pain TECHNIQUE: PA and lateral views FINDINGS: The cardiomediastinal silhouette, aorta, and pulmonary vasculature are within normal limits. Lungs an d pleural spaces are clear. IMPRESSION: No acute cardiopulmonary process.
--- NOTE | 2023-11-08 20:12 | CT ---
EXAMINATION TYPE: CT angio chest DATE OF EXAM: 11/08/2023 COMPARISON: 07/22/2020 HISTORY: 43-year-old male Chest pain and SOB x 2 weeks, states that he had blood clot in left arm x 1 months ago TECHNIQUE: Contiguous axial scanning of the chest after the administration of 100 ml mL of Isovue 370 . Coronal/sagittal MIP reconstructions performed. CT DLP: 350.7mGycm. Automatic exposure control utilized for a dose reduction. FINDINGS: Heart is normal size without pericardial effusion. No flattening of the interventricular septum or re flux of contrast in the hepatic veins. Mild ectasia aortic root at 3.7 cm. Conventional arch vessel branching anatomy. No thoracic lymphadenopathy by CT size criteria. Some right bronchial lymph node at the hilum measuri ng up to 8 mm unchanged. Satisfactory opacification of the pulmonary nodule system without evidence for pulmonary embolus. Mild diffuse bronchial wall thickening. No consolidation or pleural effusion. Visualized upper abdomen shows no gross abnormality. Bones: No osseous destructive process. Normal variant sternal foramen. Slight reverse S-shaped curvat ure upper thoracic spine. IMPRESSION: No evidence for pulmonary embolus or acute pulmonary process.
[2023-11-08 22:06] VITALS: BP 158/90; PULSE 93; RESP 20; TEMP 97.9
== END 2023-11-08 21:43 | disposition home or self-care (01) ==
LOC: EC 15:43
DX: R07.89 Other chest pain (principal); E11.9 Type 2 diabetes mellitus without complications; E78.5 Hyperlipidemia, unspecified; I10 Essential (primary) hypertension; F12.90 Cannabis use, unspecified, uncomplicated; Z87.891 Personal history of nicotine dependence; Z79.899 Other long term (current) drug therapy; Z79.4 Long term (current) use of insulin; Z88.6 Allergy status to analgesic agent; Z88.8 Allergy status to other drugs, medicaments and biological substances
CPT/HCPCS: 36415; 93005; 80053; 83735; 84484; 85025; 85610; 85730; 71046; 71275; 99285; Q9967

== ENCOUNTER 2024-05-07 04:26 | Observation (INO) | payer OTHER ==
[2024-05-08] MEDS ORDERED: ASCORBIC ACID 500 MG TAB ONE (09:21)
[2024-05-08] MEDS ORDERED: MULTIVITAMINS, THERA 1 EACH TAB ONE (09:22)
[2024-05-08] MEDS ORDERED: ZINC SULFATE 220 MG CAP ONE ×2 (09:22→23:59)
[2024-05-08] MEDS ORDERED: CHOLECALCIFEROL 25 MCG (1000 IU) TABLET ONE (09:22)
[2024-05-08] MEDS ORDERED: SERTRALINE 50 MG TAB ONE (09:22)
[2024-05-08] MEDS ORDERED: traZODone HCL 50 MG TAB ONE (23:44)
[2024-05-09] MEDS ORDERED: ZINC SULFATE 220 MG CAP ONE ×2 (09:00→09:44)
[2024-05-09] MEDS ORDERED: ASCORBIC ACID 500 MG TAB ONE (09:44)
[2024-05-09] MEDS ORDERED: CHOLECALCIFEROL 25 MCG (1000 IU) TABLET ONE (09:44)
[2024-05-09] MEDS ORDERED: SERTRALINE 50 MG TAB ONE (09:45)
[2024-05-09] MEDS ORDERED: MULTIVITAMINS, THERA 1 EACH TAB ONE (09:48)
[2024-05-09] MEDS ORDERED: traZODone HCL 50 MG TAB ONE (22:51)
[2024-05-10] MEDS ORDERED: ASCORBIC ACID 500 MG TAB ONE (09:41)
[2024-05-10] MEDS ORDERED: MULTIVITAMINS, THERA 1 EACH TAB ONE (09:41)
[2024-05-10] MEDS ORDERED: CHOLECALCIFEROL 25 MCG (1000 IU) TABLET ONE (09:42)
[2024-05-10] MEDS ORDERED: ZINC SULFATE 220 MG CAP ONE (09:42)
[2024-05-10] MEDS ORDERED: SERTRALINE 50 MG TAB ONE (09:42)
[2024-05-10] MEDS ORDERED: INSULIN ASPART (NovoLOG) 100 UNIT/ML VIAL SQ ONE (11:48)
[2024-05-10] MEDS ORDERED: traZODone HCL 50 MG TAB ONE (22:00)
[2024-05-11] MEDS ORDERED: ASCORBIC ACID 500 MG TAB ONE (09:38)
[2024-05-11] MEDS ORDERED: MULTIVITAMINS, THERA 1 EACH TAB ONE (09:39)
[2024-05-11] MEDS ORDERED: ZINC SULFATE 220 MG CAP ONE (09:39)
[2024-05-11] MEDS ORDERED: CHOLECALCIFEROL 25 MCG (1000 IU) TABLET ONE (09:39)
--- NOTE | 2024-06-09 14:53 | XR ---
Site ID [facility] Jad Barrios ID [id number] Order # Procedure CXR 1V EXAMINATION TYPE: XR chest 1V DATE OF EXAM: 05/08/2024 8:22 AM CLINICAL INDICATION: Shortness of breath; COMPARISON: THIS EXAM WAS READ DURING PACS DOWNTIME, NO PRIORS AVAILABLE. TECHNIQUE: XR chest 1V Frontal view of the chest. FINDINGS: Lungs/Pleura: There is no evidence of pleural effusion, focal consolidation, or pneumothorax. Pulmonary vascularity: Unremarkable. Heart/mediastinum: Cardiomediastinal silhouette is unremarkable. Musculoskeletal: No acute osseous pathology. Other findings: None IMPRESSION: No acute cardiopulmonary disease/process.
== END 2024-05-11 16:20 | disposition home or self-care (01) ==
LOC: 6NMEDSUR 04:26 → UNDOADMOB 05-08 04:25 → 6NMEDSUR 05-08 04:25 → UNDOADMOB 05-08 09:00 → 6NMEDSUR 05-08 09:00 → UNDODISOB 05-11 17:01
PROVIDERS: ADMIT Hospitalist; ATTEND Hospitalist
DX: F32.2 Major depressive disorder, single episode, severe without psychotic features (principal); U07.1 COVID-19; F34.1 Dysthymic disorder; E11.9 Type 2 diabetes mellitus without complications; I10 Essential (primary) hypertension; F17.290 Nicotine dependence, other tobacco product, uncomplicated; R45.851 Suicidal ideations; Z88.6 Allergy status to analgesic agent; Z88.8 Allergy status to other drugs, medicaments and biological substances
CPT/HCPCS: 82075; 99285; 71045; G0378 ×5

== ENCOUNTER 2024-06-03 21:19 | Emergency (ER) | payer SELFPAY ==
[2024-06-03 21:40] VITALS: RESP 18; TEMP 98.4
--- NOTE | 2024-06-03 21:44 | ED ---
Nausea/Vomiting/Diarrhea HPI - General Chief complaint: Nausea/Vomiting/Diarrhea Stated complaint: NV Time Seen by Provider: 06/03/24 21:24 Source: patient, EMS Mode of arrival: EMS Limitations: no limitations - History of Present Illness Initial comments: Patient is a 43-year-old man with history of diabetes and hypertension, who presents with complaint that he started having nausea around noon and then had vomiting with some streaks of blood. The patient had been feeling well in the morning then developed nausea. Shortly afternoon he had vomiting. He has had a total of 4 episodes and states that there was streaks of blood with each episode. He states that there has been some intermittent abdominal pain associated with the vomiting but not currently. MD complaint: nausea, vomiting Onset/Timin -: hour(s) Description of Vomiting: food contents Location: diffuse Radiation: none Severity: moderate Quality: cramping Consistency: intermittent Improves with: none Worsens with: none Associated Symptoms: denies other symptoms - Related Data Home Medications Medication Instructions Recorded Confirmed Atorvastatin Calcium [Lipitor] 10 mg PO HS 03/10/20 06/01/21 Escitalopram [Lexapro] 10 mg PO HS 03/10/20 06/01/21 Ascorbic Acid [Vitamin C] 500 mg PO DAILY 06/01/21 06/01/21 Budesonide-Formot 160-4.5 Mcg 2 puff INHALATION RT-BID 06/01/21 06/01/21 [Symbicort 160-4.5 Mcg Inhaler] Ergocalciferol [Vitamin D2 (1250 1,250 mcg PO Q7D 06/01/21 06/01/21 Mcg = 47624 Iu)] Insulin Glargine,Hum.rec.anlog 25 unit SQ HS 06/01/21 06/01/21 [Lantus Solostar Pen] Vitamin B Complex 1 cap PO DAILY 06/01/21 06/01/21 hydroCHLOROthiazide [Hydrodiuril] 25 mg PO DAILY 06/01/21 06/01/21 Previous Rx's Medication Instructions Recorded Metoprolol Tartrate [Lopressor] 50 mg PO BID #60 tab 07/24/17 Amoxicillin/Potassium Clav 1 tab PO Q12HR 5 Days #10 tab 09/29/20 [Augmentin 875-125 Tablet] Montelukast Sodium [Singulair] 10 mg PO HS 30 Days #30 tab 09/30/20 Acetaminophen Tab [Tylenol] 650 mg PO Q6H 10 Days #80 tab 06/01/21 Cyclobenzaprine [Flexeril] 10 mg PO TID PRN #15 tab 06/01/21 Ondansetron Odt [Zofran ODT] 4 mg PO Q8HR PRN #10 tab 06/04/24 Allergies Allergy/AdvReac Type Severity Reaction Status Date / Time aspirin Allergy Rapid Verified 06/03/24 21:40 Heart Rate ibuprofen [From Motrin] Allergy Anaphylaxis Verified 06/03/24 21:40 methylprednisolone Allergy Anaphylaxis Verified 06/03/24 21:40 [From Solu-Medrol] Review of Systems ROS Statement: Those systems with pertinent positive or pertinent negative responses have been documented in the HPI. ROS Other: All systems not noted in ROS Statement are negative. Constitutional: Denies: fever, chills Respiratory: Denies: cough, dyspnea Cardiovascular: Denies: chest pain, palpitations, edema Gastrointestinal: Reports: abdominal pain, nausea, vomiting, hematemesis. Denies: diarrhea, melena, hematochezia Genitourinary: Denies: dysuria, hematuria Musculoskeletal: Denies: back pain Skin: Denies: rash Neurological: Denies: headache, weakness, numbness Past Medical History Past Medical History: Diabetes Mellitus, GERD/Reflux, Hyperlipidemia, Hypertension Additional Past Medical History / Comment(s): NIDDM type II-diagnosed 02/2020, seasonal allergies, cyst in L abdomin and sternum area. History of Any Multi-Drug Resistant Organisms: None Reported Additional Past Surgical History / Comment(s): EGD, bilateral myringotomy/tubes, nasal polypectomy/turbinate reduction, wisdom teeth extractions. Past Anesthesia/Blood Transfusion Reactions: No Reported Reaction Additional Past Anesthesia/Blood Transfusion Reaction / Comment(s): c/o dizziness when waking up. Past Psychological History: No Psychological Hx Reported Smoking Status: Former smoker Past Alcohol Use History: Occasional Past Drug Use History: Marijuana - Past Family History Mother Family Medical History: No Reported History Additional Family Medical History / Comment(s): Mother is healthy Father Family Medical History: Coronary Artery Disease (CAD), Diabetes Mellitus, Myocardial Infarction ([place]) Additional Family Medical History / Comment(s): Father had his first of three MIs at the age of 49 yrs. He has had multiple cardiac stents General Exam Limitations: no limitations General appearance: alert, in no apparent distress Head exam: Present: atraumatic, normocephalic Eye exam: Present: normal appearance. Absent: scleral icterus, conjunctival injection ENT exam: Present: normal oropharynx Neck exam: Present: normal inspection Respiratory exam: Present: normal lung sounds bilaterally. Absent: respiratory distress, wheezes, rales, rhonchi, stridor, accessory muscle use Cardiovascular Exam: Present: regular rate, normal rhythm, normal heart sounds. Absent: systolic murmur, diastolic murmur, rubs, gallop GI/Abdominal exam: Present: soft, normal bowel sounds. Absent: distended, tenderness, guarding, rebound, rigid, mass Extremities exam: Present: normal inspection, normal capillary refill. Absent: pedal edema, calf tenderness Back exam: Present: normal inspection. Absent: CVA tenderness (R), CVA tenderness (L) Neurological exam: Present: alert Skin exam: Present: warm, dry, intact, normal color. Absent: rash Course Vital Signs 06/03/24 06/04/24 21:27 00:57 Temperature 98.4 F Pulse Rate 79 69 Respiratory 18 18 Rate Blood Pressure 142/85 127/91 O2 Sat by Pulse 97 100 Oximetry Medical Decision Making - Medical Decision Making Was pt. sent in by a medical professional or institution ([facility], [employer]PECTOR, urgent care, hospital, or longterm...) When possible be specific @ -[No] Did you speak to anyone other than the patient for history (EMS, parent, family, police, friend...)? What history was obtained from this source @ -[No] Did you review nursing and triage notes (agree or disagree)? Why? @ -[I reviewed and agree with nursing and triage notes] Were old charts reviewed (outside hosp., previous admission, EMS record, old EKG, old radiological studies, urgent care reports/EKG's, longterm records)? Report findings @ -[No old charts were reviewed] Differential Diagnosis (chest pain, altered mental status, abdominal pain women, abdominal pain men, vaginal bleeding, weakness, fever, dyspnea, syncope, headache, dizziness, GI bleed, back pain, seizure, CVA, palpatations, mental health, musculoskeletal)? @ -[Differential Abdominal Pain Men: Appendicitis, cholecystitis, diverticulosis, ischemic bowel, pancreatitis, hepatitis, UTI, gastroenteritis, AAA, incarcerated hernia, bowel obstruction, constipation, inflammatory bowel, hepatitis, peptic ulcer disease, splenic infarction, perforated viscus, testicular torsion, this is not meant to be an all-inclusive list EKG interpreted by me (3pts min.). @ -[As above] X-rays interpreted by me (1pt min.). @ -[None done] CT interpreted by me (1pt min.). @ -[None done] U/S interpreted by me (1pt. min.). @ -[None done] What testing was considered but not performed or refused? (CT, X-rays, U/S, labs)? Why? @ -[None] What meds were considered but not given or refused? Why? @ -[None] Did you discuss the management of the patient with other professionals (professionals i.e. , PA, [employer] W[employer] INSPECTOR, lab, RT, psych nurse, forensic social worker, client evaluator, teacher, identification officer, case packer)? Give summary @ -[No] Was smoking cessation discussed for >3mins.? @ -[No] Was critical care preformed (if so, how long)? @ -[No] Were there social determinants of health that impacted care today? How? (Homelessness, low income, unemployed, alcoholism, drug addiction, transportation, low edu. Level, literacy, decrease access to med. care, longterm, rehab)? @ -[No] Was there de-escalation of care discussed even if they declined (Discuss DNR or withdrawal of care, Hospice)? DNR status @ -[No] What co-morbidities impacted this encounter? (DM, HTN, Smoking, COPD, CAD, Cancer, CVA, ARF, Chemo, Hep., AIDS, mental health diagnosis, sleep apnea, morbid obesity)? @ -[None] Was patient admitted / discharged? Hospital course, mention meds given and route, prescriptions, significant lab abnormalities, going to OR and other pertinent info. @ -[Patient's 43-year-old man presenting with multiple rounds of vomiting. The patient workup is unremarkable. The exam not concerning for acute surgical condition. He did have relief of symptoms with treatment here and would like to go home. Undiagnosed new problem with uncertain prognosis? @ -[No] Drug Therapy requiring intensive monitoring for toxicity (Heparin, Nitro, Insulin, Cardizem)? @ -[No] Were any procedures done? @ -[No] Diagnosis/symptom? @ -[Acute nausea and vomiting Acute, or Chronic, or Acute on Chronic? @ -[default] acute mplicated (without systemic symptoms) or Complicated (systemic symptoms)? @ -[Uncomplicated Side effects of treatment? @ -[No] Exacerbation, Progression, or Severe Exacerbation? @ -[No] Poses a threat to life or bodily function? How? (Chest pain, [place], [place], pneumonia, PE, COPD, DKA, ARF, appy, cholecystitis, CVA, Diverticulitis, Homicidal, Suicidal, threat to staff... and all critical care pts) @ -[No] - Lab Data Result diagrams: 06/03/24 21:55 06/03/24 21:55 Lab Results 06/03/24 06/03/24 06/03/24 Range/Units 21:55 21:55 23:53 WBC 4.1 (3.8-10.6) k/uL RBC 4.32 (4.30-5.90) m/uL Hgb 12.8 L (13.0-17.5) gm/dL Hct 40.5 (39.0-53.0) % MCV 93.8 (80.0-100.0) fL MCH 29.7 (25.0-35.0) pg MCHC 31.6 (31.0-37.0) g/dL RDW 13.0 (11.5-15.5) % Plt Count 218 (150-450) k/uL MPV 7.6 Neutrophils % 55 % Lymphocytes % 30 % Monocytes % 6 % Eosinophils % 7 % Basophils % 0 % Neutrophils # 2.3 (1.3-7.7) k/uL Lymphocytes # 1.2 (1.0-4.8) k/uL Monocytes # 0.2 (0-1.0) k/uL Eosinophils # 0.3 (0-0.7) k/uL Basophils # 0.0 (0-0.2) k/uL Sodium 140 (137-145) mmol/L Potassium 3.9 (3.5-5.1) mmol/L Chloride 108 H (98-107) mmol/L Carbon Dioxide 26 (22-30) mmol/L Anion Gap 6 mmol/L BUN 15 (9-20) mg/dL Creatinine 0.70 (0.66-1.25) mg/dL Est GFR (CKD-EPI)AfAm >90 (>60 ml/min/1.73 sqM) Est GFR (CKD-EPI)NonAf >90 (>60 ml/min/1.73 sqM) Glucose 103 H (74-99) mg/dL Calcium 9.1 (8.4-10.2) mg/dL Total Bilirubin 0.4 (0.2-1.3) mg/dL AST 17 (17-59) U/L ALT 12 (4-49) U/L Alkaline Phosphatase 54 (38-126) U/L Total Protein 6.3 (6.3-8.2) g/dL Albumin 3.9 (3.5-5.0) g/dL Amylase 60 (30-110) U/L Lipase 279 (23-300) U/L Urine Color Colorless Urine Appearance Clear (Clear) Urine pH 6.5 (5.0-8.0) Ur Specific [place] 1.019 (1.001-1.035) Urine Protein Negative (Negative) Urine Glucose (UA) Negative (Negative) Urine Ketones Negative (Negative) Urine Blood Negative (Negative) Urine Nitrite Negative (Negative) Urine Bilirubin Negative (Negative) Urine Urobilinogen <2.0 (<2.0) mg/dL Ur Leukocyte Esterase Negative (Negative) Disposition Clinical Impression: Nausea & vomiting Disposition: HOME SELF-CARE Condition: Good Instructions (If sedation given, give patient instructions): Acute Nausea and Vomiting (ED) Prescriptions: Ondansetron Odt [Zofran ODT] 4 mg PO Q8HR PRN #10 tab PRN Reason: Nausea Is patient prescribed a controlled substance at d/c from ED?: No Referrals: Peggy Brooks DO [Primary Care Provider] - 1-2 days
[2024-06-03 22:06] LABS: Basophils % (A) 0 %; Eosinophils # (A) 0.3 k/uL (0-0.7); Eosinophils % (A) 7 %; HCT 40.5 % (39.0-53.0); HGB 12.8 gm/dL (13.0-17.5); Lymphocytes # (A) 1.2 k/uL (1.0-4.8); Lymphocytes % (A) 30 %; MCH 29.7 pg (25.0-35.0); MCHC 31.6 g/dL (31.0-37.0); MCV 93.8 fL (80.0-100.0); Mean Platelet Volume 7.6; Monocytes # (A) 0.2 k/uL (0-1.0); Monocytes % (A) 6 %; Neutrophils # (A) 2.3 k/uL (1.3-7.7); Neutrophils % (A) 55 %; Platelet Count 218 k/uL (150-450); RBC 4.32 m/uL (4.30-5.90); WBC 4.1 k/uL (3.8-10.6)
[2024-06-03 22:22] LABS: ALT 12 U/L (4-49); AST 17 U/L (17-59); African American GFR (CKD) >90 (>60 ml/min/1.73 sqM); Albumin 3.9 g/dL (3.5-5.0); Alkaline Phosphatase 54 U/L (38-126); Amylase 60 U/L (30-110); Anion Gap 6 mmol/L; Blood Urea Nitrogen 15 mg/dL (9-20); Calcium 9.1 mg/dL (8.4-10.2); Carbon Dioxide 26 mmol/L (22-30); Chloride 108 mmol/L (98-107); Glucose 103 mg/dL (74-99); Lipase 279 U/L (23-300); Non-African American GFR(CKD) >90 (>60 ml/min/1.73 sqM); Potassium 3.9 mmol/L (3.5-5.1); Sodium 140 mmol/L (137-145); Total Bilirubin 0.4 mg/dL (0.2-1.3); Total Protein 6.3 g/dL (6.3-8.2)
[2024-06-03] MEDS: SODIUM CHLORIDE 0.9% 1,000 ML IV STA (22:24)
[2024-06-03] MEDS: ONDANSETRON 4 MG/2 ML VIAL IVP STA (22:24)
[2024-06-04 00:09] LABS: Appearance,Urine Clear (Clear); Bilirubin,Urine Negative (Negative); Blood,Urine Negative (Negative); Color,Urine Colorless; Glucose,Urine (UA) Negative (Negative); Ketones,Urine Negative (Negative); Leukocyte Esterase,Urine Negative (Negative); Nitrite,Urine Negative (Negative); PH, Urine 6.5 (5.0-8.0); Protein,Urine Negative (Negative); Specific Gravity,Urine 1.019 (1.001-1.035); Urobilinogen,Urine <2.0 mg/dL (<2.0)
[2024-06-04 01:00] VITALS: BP 127/91; PULSE 69
== END 2024-06-04 01:05 | disposition home or self-care (01) ==
LOC: EC 21:19
CPT/HCPCS: 36415; 80053; 81003; 82150; 83690; 85025; 96361; 96374; 99283

== ENCOUNTER 2024-11-20 14:17 | Emergency (ER) | payer OTHER ==
[2024-11-20 14:24] VITALS: TEMP 98.1
--- NOTE | 2024-11-20 14:27 | ED ---
Extremity Problem HPI - General Chief complaint: Extremity Problem,Nontraumatic Stated complaint: L Hand Pain Time Seen by Provider: 11/20/24 14:27 Source: patient, RN notes reviewed Mode of arrival: ambulatory Limitations: no limitations - History of Present Illness Initial comments: 44-year-old male presenting to the ER for evaluation of left hand pain. He states has been ongoing issue since before 2023. He states he woke up this morning and noted pain to his left thumb and second digit with pain limiting range of motion. He denies any injuries or traumas. Patient does report a history of a superficial blood clot in same arm. He currently is rating his pain an 8 out of 10. Denies any paresthesias to the right upper extremity, neck pain, shoulder pain, chest pain, shortness of breath, dizziness or lightheadedness. No other complaints at this time. - Related Data Home Medications Medication Instructions Recorded Confirmed Atorvastatin Calcium [Lipitor] 10 mg PO HS 03/10/20 06/01/21 Escitalopram [Lexapro] 10 mg PO HS 03/10/20 06/01/21 Ascorbic Acid [Vitamin C] 500 mg PO DAILY 06/01/21 06/01/21 Budesonide-Formot 160-4.5 Mcg 2 puff INHALATION RT-BID 06/01/21 06/01/21 [Symbicort 160-4.5 Mcg Inhaler] Ergocalciferol [Vitamin D2 (1250 1,250 mcg PO Q7D 06/01/21 06/01/21 Mcg = 98729 Iu)] Insulin Glargine,Hum.rec.anlog 25 unit SQ HS 06/01/21 06/01/21 [Lantus Solostar Pen] Vitamin B Complex 1 cap PO DAILY 06/01/21 06/01/21 hydroCHLOROthiazide [Hydrodiuril] 25 mg PO DAILY 06/01/21 06/01/21 Previous Rx's Medication Instructions Recorded Metoprolol Tartrate [Lopressor] 50 mg PO BID #60 tab 07/24/17 Amoxicillin/Potassium Clav 1 tab PO Q12HR 5 Days #10 tab 09/29/20 [Augmentin 875-125 Tablet] Montelukast Sodium [Singulair] 10 mg PO HS 30 Days #30 tab 09/30/20 Acetaminophen Tab [Tylenol] 650 mg PO Q6H 10 Days #80 tab 06/01/21 Cyclobenzaprine [Flexeril] 10 mg PO TID PRN #15 tab 06/01/21 Ondansetron Odt [Zofran ODT] 4 mg PO Q8HR PRN #10 tab 06/04/24 Allergies Allergy/AdvReac Type Severity Reaction Status Date / Time aspirin Allergy Rapid Verified 11/20/24 14:24 Heart Rate ibuprofen [From Motrin] Allergy Anaphylaxis Verified 11/20/24 14:24 methylprednisolone Allergy Anaphylaxis Verified 11/20/24 14:24 [From Solu-Medrol] Review of Systems ROS Statement: Those systems with pertinent positive or pertinent negative responses have been documented in the HPI. ROS Other: All systems not noted in ROS Statement are negative. Past Medical History Past Medical History: Diabetes Mellitus, GERD/Reflux, Hyperlipidemia, Hypertension Additional Past Medical History / Comment(s): NIDDM type II-diagnosed 02/2020, seasonal allergies, cyst in L abdomin and sternum area. History of Any Multi-Drug Resistant Organisms: None Reported Additional Past Surgical History / Comment(s): EGD, bilateral myringotomy/tubes, nasal polypectomy/turbinate reduction, wisdom teeth extractions. Past Anesthesia/Blood Transfusion Reactions: No Reported Reaction Additional Past Anesthesia/Blood Transfusion Reaction / Comment(s): c/o dizziness when waking up. Past Psychological History: No Psychological Hx Reported Smoking Status: Former smoker Past Alcohol Use History: Occasional Past Drug Use History: Marijuana - Past Family History Mother Family Medical History: No Reported History Additional Family Medical History / Comment(s): Mother is healthy Father Family Medical History: Coronary Artery Disease (CAD), Diabetes Mellitus, Myocardial Infarction ([place]) Additional Family Medical History / Comment(s): Father had his first of three MIs at the age of 49 yrs. He has had multiple cardiac stents General Exam - General Exam Comments Initial Comments: Visual Physical Exam Vital signs reviewed General: Well-appearing, nontoxic, no acute distress. Head: Normocephalic, atraumatic Eyes: PERRLA, EOMI ENT: Airway patent Chest: Nonlabored breathing Skin: No visual rash, normal skin tone Neuro: Alert and oriented 3 Musculoskeletal: No gross abnormalities Limitations: no limitations General appearance: alert, in no apparent distress Respiratory exam: Present: normal lung sounds bilaterally. Absent: respiratory distress, wheezes, rales, rhonchi, stridor Cardiovascular Exam: Present: regular rate, normal rhythm, normal heart sounds. Absent: systolic murmur, diastolic murmur, rubs, gallop, clicks Extremities exam: Present: normal inspection, full ROM, tenderness (Pain to left first and second MCP joint. No anatomical snuffbox tenderness. No overlying skin changes.), normal capillary refill (2+ left radial pulse) Neurological exam: Present: alert, oriented X3, CN II-XII intact Skin exam: Present: warm, dry, intact, normal color. Absent: rash Course Vital Signs 11/20/24 11/20/24 14:22 16:43 Temperature 98.1 F 98.1 F Pulse Rate 92 52 L Respiratory 16 18 Rate Blood Pressure 152/101 146/86 O2 Sat by Pulse 97 99 Oximetry Medical Decision Making - Medical Decision Making I performed the quick note portion of this chart. Electronically signed by Donna Wong PA-C Was pt. sent in by a medical professional or institution ([facility], [employer] [employer]ER, urgent care, hospital, or [place] health care facility...) When possible be specific @ -No Did you speak to anyone other than the patient for history (EMS, parent, family, police, friend...)? What history was obtained from this source @ -No Did you review nursing and triage notes (agree or disagree)? Why? @ -I reviewed and agree with nursing and triage notes Were old charts reviewed (outside hosp., previous admission, EMS record, old EKG, old radiological studies, urgent care reports/EKG's, [place] health care facility records)? Report findings @ -No old charts were reviewed Differential Diagnosis (chest pain, altered mental status, abdominal pain women, abdominal pain men, vaginal bleeding, weakness, fever, dyspnea, syncope, headache, dizziness, GI bleed, back pain, seizure, CVA, palpatations, mental health, musculoskeletal)? @ -Differential Musculoskeletal: Muscular strain, contusion, ligament sprain, fracture, arthritis, septic arthritis, bursitis, cellulitis, muscle spasm, nerve compression, DVT, arterial occlusion, herpes zoster, electrolyte abnormality, tumor.... This is not meant to be in all inclusive list EKG interpreted by me (3pts min.). @ -None done X-rays interpreted by me (1pt min.). @ -Left hand x-ray interpreted by me negative for acute fractures or dislocations. Narrowing of PIP and DIP joints noted. CT interpreted by me (1pt min.). @ -None done U/S interpreted by me (1pt. min.). @ -Ultrasound venous Doppler left upper extremity negative for acute evidence of DVT. What testing was considered but not performed or refused? (CT, X-rays, U/S, labs)? Why? @ -None What meds were considered but not given or refused? Why? @ -None Did you discuss the management of the patient with other professionals (professionals i.e. , PA, NECKTIE MAKER, lab, RT, psych nurse, social sciences instructor, managing consultant, teacher, humane officer, casework manager)? Give summary @ -No Was smoking cessation discussed for >3mins.? @ -No Was critical care preformed (if so, how long)? @ -No Were there social determinants of health that impacted care today? How? (Homelessness, low income, unemployed, alcoholism, drug addiction, transportation, low edu. Level, literacy, decrease access to med. care, long-term, rehab)? @ -No Was there de-escalation of care discussed even if they declined (Discuss DNR or withdrawal of care, Hospice)? DNR status @ -No What co-morbidities impacted this encounter? (DM, HTN, Smoking, COPD, CAD, Cancer, CVA, ARF, Chemo, Hep., AIDS, mental health diagnosis, sleep apnea, morbid obesity)? @ -None Was patient admitted / discharged? Hospital course, mention meds given and route, prescriptions, significant lab abnormalities, going to OR and other pertinent info. @ -Discharge. 44-year-old male presented to ER for evaluation of left hand pain. Patient is neurovascularly intact. No anatomical snuffbox tenderness. Full active range of motion. Imaging in the ER negative for acute process. Patient given pain control with Tylenol. Patient is stable for discharge and close outpatient follow-up with PCP and orthopedics, referral given. Strict return parameters discussed. Patient discharged in stable condition. Patient verbally expressed understanding agree with care plan. Case discussed with ED attending, Dr. Gabriel. Undiagnosed new problem with uncertain prognosis? @ -No Drug Therapy requiring intensive monitoring for toxicity (Heparin, Nitro, Insulin, Cardizem)? @ -No Were any procedures done? @ -No Diagnosis/symptom? @ -Hand pain Acute, or Chronic, or Acute on Chronic? @ -Acute Uncomplicated (without systemic symptoms) or Complicated (systemic symptoms)? @ -Uncomplicated Side effects of treatment? @ -No Exacerbation, Progression, or Severe Exacerbation? @ -No Poses a threat to life or bodily function? How? (Chest pain, [place], [place], pneumonia, PE, COPD, DKA, ARF, appy, cholecystitis, CVA, Diverticulitis, Homicidal, Suicidal, threat to staff... and all critical care pts) @ -No - Radiology Data Radiology results: report reviewed, image reviewed Disposition Clinical Impression: Hand pain Disposition: HOME SELF-CARE Condition: Stable Additional Instructions: Follow-up with PCP. Return to the ER for any new or worsening symptoms. Is patient prescribed a controlled substance at d/c from ED?: No Referrals: None,Stated [Primary Care Provider] - 1-2 days Noam Villafana MD [STAFF PHYSICIAN] - 1-2 days Forms: Area PCPs Time of Disposition: 16:34
--- NOTE | 2024-11-20 14:56 | XR ---
EXAMINATION TYPE: XR hand complete LT DATE OF EXAM: 11/20/2024 2:45 PM COMPARISON: None. CLINICAL INDICATION: Male, 44 years old with history of pain, pain TECHNIQUE: Frontal, lateral and oblique images of the left hand are obtained. FINDINGS: There is no acute fracture/dislocation evident in the left hand. Mild to moderate narrowin g throughout the PIP and DIP joints of the fingers. The overlying soft tissue appears unremarkable. IMPRESSION: As above. [facility], , 11/20/2024 2:53 PM
[2024-11-20] MEDS: ACETAMINOPHEN TAB 325 MG TAB PO STA (16:21)
--- NOTE | 2024-11-20 16:22 | US ---
EXAMINATION TYPE: US venous doppler duplex UE LT DATE OF EXAM: 11/20/2024 COMPARISON: NONE CLINICAL INDICATION: Male, 44 years old with history of pain; Hx DVT LUE 1 year ago; Shoulder disloca tion just before 2023 TECHNIQUE: Grayscale, color Doppler and spectral Doppler imaging of the upper extremity. SIDE PERFORMED: Left VESSELS IMAGED: IJV Subclavian Vein Axilla Vein Brachial Vein(s) Radial Paired Veins Ulnar Paired Veins Cephalic Vein* Basilic Vein* (*superficial vessels) FINDINGS: Left Arm: Negative for DVT Grayscale, color doppler, spectral doppler imaging performed of the deep veins of the upper extremiti es. IMPRESSION: 1. Left upper extremity ultrasound negative for deep venous thrombosis. [facility], , 11/20/2024 4:20 PM
[2024-11-20 16:45] VITALS: BP 146/86; PULSE 52; RESP 18
== END 2024-11-20 16:45 | disposition home or self-care (01) ==
LOC: EC 14:17
DX: M79.642 Pain in left hand (principal); Z87.891 Personal history of nicotine dependence
CPT/HCPCS: 99284

== ENCOUNTER 2025-01-06 12:13 | Emergency (ER) | payer OTHER ==
[2025-01-06 12:20] VITALS: BP 149/93; PULSE 94; RESP 18; TEMP 98
--- NOTE | 2025-01-06 12:51 | ED ---
General Adult HPI - General Chief complaint: Skin/Abscess/Foreign Body Stated complaint: L leg wound, tingling Time Seen by Provider: 01/06/25 12:21 Source: patient, RN notes reviewed Mode of arrival: ambulatory Limitations: no limitations - History of Present Illness Initial comments: 44-year-old male presents emergency department complaint of left thigh rash. States started yesterday states there is some blistering, bumps states it is painful and tingly at the same time. Patient denies any back pain. Patient denies any trauma no new medications soaps or detergents no other complaints. - Related Data Home Medications Medication Instructions Recorded Confirmed Atorvastatin Calcium [Lipitor] 10 mg PO HS 03/10/20 06/01/21 Escitalopram [Lexapro] 10 mg PO HS 03/10/20 06/01/21 Ascorbic Acid [Vitamin C] 500 mg PO DAILY 06/01/21 06/01/21 Budesonide-Formot 160-4.5 Mcg 2 puff INHALATION RT-BID 06/01/21 06/01/21 [Symbicort 160-4.5 Mcg Inhaler] Ergocalciferol [Vitamin D2 (1250 1,250 mcg PO Q7D 06/01/21 06/01/21 Mcg = 00856 Iu)] Insulin Glargine,Hum.rec.anlog 25 unit SQ HS 06/01/21 06/01/21 [Lantus Solostar Pen] Vitamin B Complex 1 cap PO DAILY 06/01/21 06/01/21 hydroCHLOROthiazide [Hydrodiuril] 25 mg PO DAILY 06/01/21 06/01/21 Previous Rx's Medication Instructions Recorded Metoprolol Tartrate [Lopressor] 50 mg PO BID #60 tab 07/24/17 Amoxicillin/Potassium Clav 1 tab PO Q12HR 5 Days #10 tab 09/29/20 [Augmentin 875-125 Tablet] Montelukast Sodium [Singulair] 10 mg PO HS 30 Days #30 tab 09/30/20 Acetaminophen Tab [Tylenol] 650 mg PO Q6H 10 Days #80 tab 06/01/21 Cyclobenzaprine [Flexeril] 10 mg PO TID PRN #15 tab 06/01/21 Ondansetron Odt [Zofran ODT] 4 mg PO Q8HR PRN #10 tab 06/04/24 valACYclovir HCL [Valtrex] 1,000 mg PO TID #30 tablet 01/06/25 Allergies Allergy/AdvReac Type Severity Reaction Status Date / Time aspirin Allergy Rapid Verified 01/06/25 12:20 Heart Rate ibuprofen [From Motrin] Allergy Anaphylaxis Verified 01/06/25 12:20 methylprednisolone Allergy Anaphylaxis Verified 01/06/25 12:20 [From Solu-Medrol] Review of Systems ROS Statement: Those systems with pertinent positive or pertinent negative responses have been documented in the HPI. ROS Other: All systems not noted in ROS Statement are negative. Past Medical History Past Medical History: Diabetes Mellitus, GERD/Reflux, Hyperlipidemia, Hypertension Additional Past Medical History / Comment(s): NIDDM type II-diagnosed 02/2020, seasonal allergies, cyst in L abdomin and sternum area. History of Any Multi-Drug Resistant Organisms: None Reported Additional Past Surgical History / Comment(s): EGD, bilateral myringotomy/tubes, nasal polypectomy/turbinate reduction, wisdom teeth extractions. Past Anesthesia/Blood Transfusion Reactions: No Reported Reaction Additional Past Anesthesia/Blood Transfusion Reaction / Comment(s): c/o dizziness when waking up. Past Psychological History: No Psychological Hx Reported Smoking Status: Former smoker, Vaper Past Alcohol Use History: Occasional Past Drug Use History: Marijuana - Past Family History Mother Family Medical History: No Reported History Additional Family Medical History / Comment(s): Mother is healthy Father Family Medical History: Coronary Artery Disease (CAD), Diabetes Mellitus, Myocardial Infarction ([place]) Additional Family Medical History / Comment(s): Father had his first of three MIs at the age of 49 yrs. He has had multiple cardiac stents General Exam Limitations: no limitations General appearance: alert, in no apparent distress Head exam: Present: atraumatic, normocephalic, normal inspection Eye exam: Present: normal appearance, PERRL, EOMI. Absent: scleral icterus, conjunctival injection, periorbital swelling Respiratory exam: Present: normal lung sounds bilaterally. Absent: respiratory distress, wheezes, rales, rhonchi, stridor Cardiovascular Exam: Present: regular rate, normal rhythm, normal heart sounds. Absent: systolic murmur, diastolic murmur, rubs, gallop, clicks Extremities exam: Present: other (Left eye there is an erythematous base vesicular rash) Course Vital Signs 01/06/25 12:17 Temperature 98 F Pulse Rate 94 Respiratory 18 Rate Blood Pressure 149/93 O2 Sat by Pulse 98 Oximetry Medical Decision Making - Medical Decision Making Was pt. sent in by a medical professional or institution ([facility] Titus, [employer], urgent care, hospital, or shelter...) When possible be specific @ -No Did you speak to anyone other than the patient for history (EMS, parent, family, police, friend...)? What history was obtained from this source @ -No Did you review nursing and triage notes (agree or disagree)? Why? @ -I reviewed and agree with nursing and triage notes Were old charts reviewed (outside hosp., previous admission, EMS record, old EKG, old radiological studies, urgent care reports/EKG's, shelter records)? Report findings @ -No old charts were reviewed Differential Diagnosis (chest pain, altered mental status, abdominal pain women, abdominal pain men, vaginal bleeding, weakness, fever, dyspnea, syncope, headache, dizziness, GI bleed, back pain, seizure, CVA, palpatations, mental health, musculoskeletal)? @ -Dermatitis, large reaction, herpes zoster EKG interpreted by me (3pts min.). @ -None X-rays interpreted by me (1pt min.). @ -None done CT interpreted by me (1pt min.). @ -None done U/S interpreted by me (1pt. min.). @ -None done What testing was considered but not performed or refused? (CT, X-rays, U/S, labs)? Why? @ -None What meds were considered but not given or refused? Why? @ -None Did you discuss the management of the patient with other professionals (professionals i.e. FARH[facility] Titus, [employer]IC[employer], lab, RT, psych nurse, social work administrator, nocturnist physician, teacher, commanding officer traffic division, correctional case records supervisor)? Give summary @ -No Was smoking cessation discussed for >3mins.? @ -No Was critical care preformed (if so, how long)? @ -No Were there social determinants of health that impacted care today? How? (Homelessness, low income, unemployed, alcoholism, drug addiction, transportation, low edu. Level, literacy, decrease access to med. care, [facility], rehab)? @ -No Was there de-escalation of care discussed even if they declined (Discuss DNR or withdrawal of care, Hospice)? DNR status @ -No What co-morbidities impacted this encounter? (DM, HTN, Smoking, COPD, CAD, Cancer, CVA, ARF, Chemo, Hep., AIDS, mental health diagnosis, sleep apnea, morbid obesity)? @ -None Was patient admitted / discharged? Hospital course, mention meds given and route, prescriptions, significant lab abnormalities, going to OR and other pertinent info. @ -Discharge patient has herpes zoster was started on Valtrex return parameters discussed. Undiagnosed new problem with uncertain prognosis? @ -No Drug Therapy requiring intensive monitoring for toxicity (Heparin, Nitro, Insulin, Cardizem)? @ -No Were any procedures done? @ -No Diagnosis/symptom? @ -Herpes zoster Acute, or Chronic, or Acute on Chronic? @ -Acute Uncomplicated (without systemic symptoms) or Complicated (systemic symptoms)? @ -Uncomplicated Side effects of treatment? @ -No Exacerbation, Progression, or Severe Exacerbation? @ -No Poses a threat to life or bodily function? How? (Chest pain, [place], [place], pneumonia, PE, COPD, DKA, ARF, appy, cholecystitis, CVA, Diverticulitis, Homicidal, Suicidal, threat to staff... and all critical care pts) @ -No Disposition Clinical Impression: Herpes zoster Disposition: HOME SELF-CARE Condition: Stable Instructions (If sedation given, give patient instructions): Shingles (ED) Additional Instructions: Please return to the Emergency Department if symptoms worsen or any other concerns. Prescriptions: valACYclovir HCL [Valtrex] 1,000 mg PO TID #30 tablet Is patient prescribed a controlled substance at d/c from ED?: No Referrals: None,Stated [Primary Care Provider] - 1-2 days Time of Disposition: 12:51
== END 2025-01-06 13:01 | disposition home or self-care (01) ==
LOC: EC 12:13
DX: B02.9 Zoster without complications (principal); F17.290 Nicotine dependence, other tobacco product, uncomplicated; Z88.6 Allergy status to analgesic agent; Z88.8 Allergy status to other drugs, medicaments and biological substances
CPT/HCPCS: 99283

== ENCOUNTER 2025-03-13 22:57 | Emergency (ER) | payer OTHER ==
[2025-03-13 23:06] VITALS: RESP 18
[2025-03-13] MEDS: MORPHINE SULFATE 4 MG/ML SYRINGE IM STA (23:29)
[2025-03-13] MEDS: DEXAMETHASONE SOD PHOSPHATE 10 MG/ML 1 ML VIAL IM STA (23:30)
--- NOTE | 2025-03-13 23:35 | ED ---
Extremity Problem HPI - General Chief complaint: Extremity Problem,Nontraumatic Stated complaint: Left Thumb Pain Time Seen by Provider: 03/13/25 23:06 Source: patient, RN notes reviewed Mode of arrival: ambulatory Limitations: no limitations - History of Present Illness Initial comments: This is a 44-year-old male who presents to the emergency department for left thumb pain. States that this has been an ongoing issue for the last couple of months. Pain starts in the thumb and also goes down the hand. He was previously told that it was arthritis, but states that it is not getting better. He has tried taking Tylenol without any relief. Denies any new injuries. He does do a lot of work with his hands that involves repetitive motion. - Related Data Home Medications Medication Instructions Recorded Confirmed Atorvastatin Calcium [Lipitor] 10 mg PO HS 03/10/20 06/01/21 Escitalopram [Lexapro] 10 mg PO HS 03/10/20 06/01/21 Ascorbic Acid [Vitamin C] 500 mg PO DAILY 06/01/21 06/01/21 Budesonide-Formot 160-4.5 Mcg 2 puff INHALATION RT-BID 06/01/21 06/01/21 [Symbicort 160-4.5 Mcg Inhaler] Ergocalciferol [Vitamin D2 (1250 1,250 mcg PO Q7D 06/01/21 06/01/21 Mcg = 34331 Iu)] Insulin Glargine,Hum.rec.anlog 25 unit SQ HS 06/01/21 06/01/21 [Lantus Solostar Pen] Vitamin B Complex 1 cap PO DAILY 06/01/21 06/01/21 hydroCHLOROthiazide [Hydrodiuril] 25 mg PO DAILY 06/01/21 06/01/21 Previous Rx's Medication Instructions Recorded Metoprolol Tartrate [Lopressor] 50 mg PO BID #60 tab 07/24/17 Amoxicillin/Potassium Clav 1 tab PO Q12HR 5 Days #10 tab 09/29/20 [Augmentin 875-125 Tablet] Montelukast Sodium [Singulair] 10 mg PO HS 30 Days #30 tab 09/30/20 Acetaminophen Tab [Tylenol] 650 mg PO Q6H 10 Days #80 tab 06/01/21 Cyclobenzaprine [Flexeril] 10 mg PO TID PRN #15 tab 06/01/21 Ondansetron Odt [Zofran ODT] 4 mg PO Q8HR PRN #10 tab 06/04/24 valACYclovir HCL [Valtrex] 1,000 mg PO TID #30 tablet 01/06/25 dexAMETHasone [Decadron] 6 mg PO DAILY 5 Days #5 tablet 03/14/25 Allergies Allergy/AdvReac Type Severity Reaction Status Date / Time aspirin Allergy Rapid Verified 03/13/25 23:04 Heart Rate ibuprofen [From Motrin] Allergy Anaphylaxis Verified 03/13/25 23:04 methylprednisolone Allergy Anaphylaxis Verified 03/13/25 23:04 [From Solu-Medrol] Review of Systems ROS Statement: Those systems with pertinent positive or pertinent negative responses have been documented in the HPI. ROS Other: All systems not noted in ROS Statement are negative. Past Medical History Past Medical History: Diabetes Mellitus, GERD/Reflux, Hyperlipidemia, Hypertension Additional Past Medical History / Comment(s): NIDDM type II-diagnosed 02/2020, seasonal allergies, cyst in L abdomin and sternum area. History of Any Multi-Drug Resistant Organisms: None Reported Additional Past Surgical History / Comment(s): EGD, bilateral myringotomy/tubes, nasal polypectomy/turbinate reduction, wisdom teeth extractions. Past Anesthesia/Blood Transfusion Reactions: No Reported Reaction Additional Past Anesthesia/Blood Transfusion Reaction / Comment(s): c/o dizziness when waking up. Past Psychological History: No Psychological Hx Reported Smoking Status: Current every day smoker, Vaper Past Alcohol Use History: Occasional Past Drug Use History: Marijuana - Past Family History Mother Family Medical History: No Reported History Additional Family Medical History / Comment(s): Mother is healthy Father Family Medical History: Coronary Artery Disease (CAD), Diabetes Mellitus, Myocardial Infarction ([place]) Additional Family Medical History / Comment(s): Father had his first of three MIs at the age of 49 yrs. He has had multiple cardiac stents General Exam Limitations: no limitations General appearance: alert, in no apparent distress Head exam: Present: atraumatic, normocephalic, normal inspection Respiratory exam: Present: normal lung sounds bilaterally. Absent: respiratory distress, wheezes, rales, rhonchi, stridor Cardiovascular Exam: Present: regular rate, normal rhythm Extremities exam: Present: other (Positive Raf test on the left. Range of motion of the left thumb is limited by pain. Mild tenderness. No overlying swelling or erythema.) Neurological exam: Present: alert, oriented X3, CN II-XII intact Psychiatric exam: Present: normal affect, normal mood Skin exam: Present: warm, dry, intact, normal color. Absent: rash Course Vital Signs 03/13/25 03/14/25 23:04 00:53 Temperature 98.0 F 98.4 F Pulse Rate 84 68 Respiratory 18 18 Rate Blood Pressure 142/96 150/94 O2 Sat by Pulse 98 98 Oximetry Medical Decision Making - Medical Decision Making This is a 44 year old male who presents to the emergency department for left thumb pain. Was pt. sent in by a medical professional or institution? @ -No Did you speak to anyone other than the patient for history? @ -No Did you review nursing and triage notes? @ -Yes, and I agree, it is accurate with regards to the patient's symptoms. Were old charts reviewed? @ -No Differential Diagnosis? @ -Differential Musculoskeletal Muscular strain, contusion, ligament sprain, fracture, arthritis, septic arthritis, bursitis, cellulitis, muscle spasm, nerve compression, DVT, arterial occlusion, herpes zoster, electrolyte abnormality, tumor.... This is not meant to be in all inclusive list re] EKG interpreted by me (3pts min.)? @ -Not obtained X-rays interpreted by me (1pt min.)? @ -X-ray of the left thumb obtained. My interpretation identifies no acute fractures. CT interpreted by me (1pt min.)? @ -Not obtained U/S interpreted by me (1pt. min.)? @ -Not obtained What testing was considered but not performed? (CT, X-rays, U/S, labs)? Why? @ -None What meds were considered but not given? Why? @ -None Did you discuss the management of the patient with other professionals? @ -No Did you reconcile home meds? @ -No Was smoking cessation discussed for >3mins.? @ -No Was critical care preformed (if so, how long)? @ -No Were there social determinants of health that impacted care today? How? (Homelessness, low income, unemployed, alcoholism, drug addiction, transportation, low edu. Level, literacy, decrease access to med. care, nursing home, rehab)? @ -No Was there de-escalation of care discussed even if they declined? (Discuss DNR or withdrawal of care, Hospice)? @ -No What co-morbidities impacted this encounter? (DM, HTN, Smoking, COPD, CAD, Cancer, CVA, Hep., AIDS, mental health diagnosis, sleep apnea, morbid obesity)? @ -None Was patient admitted / discharged? @ -Discharged. X-ray of the left thumb obtained revealing no acute process. The location and description of his symptoms are suggestive of de Quervain's tenosynovitis. Patient is allergic to all NSAIDs, making it difficult to manage his pain. Advised that he needs some sort of anti-inflammatory to help with this. He does tolerate some steroids okay, but states that Solu-Medrol gave him a severe reaction. On review of his chart it appears he has tolerated Decadron without any problems. He was subsequently given a dose of Decadron in the emergency department which he tolerated well. This was prescribed to be taken for the next few days to see if this will help with the inflammation aspect. Also advised that he needs a splint to immobilize the area. A finger splint was applied to the left thumb followed by an Nathanael wrap to the hand to help immobilize the area, however advised he look online or [id number] for a splint specifically for this condition. He was also given information for follow-up with orthopedics. Patient discharged home in stable condition. Case discussed with ED attending Dr. Taylor. Return precautions reviewed in depth, the patient is instructed to return to the emergency department with any new, worsening, or concerning symptoms. Patient verbalized understanding. Undiagnosed new problem with uncertain prognosis? @ -None Drug Therapy requiring intensive monitoring for toxicity (Heparin, Nitro, Insulin, Cardizem)? @ -None Were any procedures done? @ -None Diagnosis/symptom? @ -De Quervain's tenosynovitis Acute, or Chronic, or Acute on Chronic? @ -Acute Uncomplicated (without systemic symptoms) or Complicated (systemic symptoms)? @ -Uncomplicated Side effects of treatment? @ -None Exacerbation, Progression, or Severe Exacerbation] @ -Not applicable Poses a threat to life or bodily function? @ -May limit use of the left hand for the meantime - Radiology Data Radiology results: report reviewed, image reviewed Disposition Clinical Impression: De Quervain's tenosynovitis, left Disposition: HOME SELF-CARE Condition: Stable Instructions (If sedation given, give patient instructions): De Quervain Disease (ED) Additional Instructions: Return to the emergency department with any new, worsening, or concerning symptoms. Take the Decadron daily for the next 5 days. Look online or at any drugstore for a wrist brace specifically for de Quervain's tenosynovitis to help immobilize this area. You will need to have it immobilized to allow it to heal. Contact the orthopedic office listed below. Let them know that you were seen in the emergency department for de Quervain's tenosynovitis and they will schedule you for a follow-up appointment. Prescriptions: dexAMETHasone [Decadron] 6 mg PO DAILY 5 Days #5 tablet Is patient prescribed a controlled substance at d/c from ED?: No Referrals: None,Stated [Primary Care Provider] - 1-2 days Time of Disposition: 00:39
[2025-03-14] MEDS: ACET/COD 300 MG/30 MG STARTER PACK 6 TAB BTL PO STA (00:47)
[2025-03-14 00:56] VITALS: BP 150/94; PULSE 68; TEMP 98.4
--- NOTE | 2025-03-14 01:01 | XR ---
EXAM: XR Left Fingers, 2 or More Views CLINICAL HISTORY: ITS.REASON XR Reason: Left thumb pain TECHNIQUE: Frontal, lateral and oblique views of the fingers of the left hand. COMPARISON: No relevant prior studies available. FINDINGS: Bones/joints: Unremarkable. No acute fracture. No dislocation. Soft tissues: Unremarkable. No radiopaque foreign body. IMPRESSION: No acute fracture.
== END 2025-03-14 00:53 | disposition home or self-care (01) ==
LOC: EC 22:57
DX: M65.4 Radial styloid tenosynovitis [de Quervain] (principal); F17.290 Nicotine dependence, other tobacco product, uncomplicated; Z88.6 Allergy status to analgesic agent; Z88.8 Allergy status to other drugs, medicaments and biological substances
CPT/HCPCS: 99283; 96372; 73140; 29125; J2270; J1100

== ENCOUNTER 2025-03-31 17:09 | Emergency (ER) | payer OTHER ==
[2025-03-31 18:33] LABS: Basophils # (A) 0.05 10*3/uL (0.00-0.10); Basophils % (A) 0.7 %; Eosinophils # (A) 0.29 10*3/uL (0.04-0.35); Eosinophils % (A) 4.3 %; HCT 43.8 % (39.6-50.0); HGB 14.7 g/dL (13.0-17.0); Lymphocytes # (A) 1.37 10*3/uL (0.90-5.00); Lymphocytes % (A) 20.4 %; MCH 30.2 pg (27.0-32.0); MCHC 33.6 g/dL (32.0-37.0); MCV 89.9 fL (80.0-97.0); Monocytes # (A) 0.44 10*3/uL (0.20-1.00); Monocytes % (A) 6.5 %; Neutrophils # (A) 4.56 10*3/uL (1.80-7.70); Neutrophils % (A) 67.8 %; Platelet Count 186 10*3/uL (140-440); RBC 4.87 10*6/uL (4.40-5.60); RDW 12.3 % (11.5-14.5); WBC 6.73 10*3/uL (4.50-10.00)
[2025-03-31 18:43] LABS: ALT 37 U/L (4-49); AST 103 U/L (17-59); African American GFR (CKD) >90 (>60 ml/min/1.73 sqM); Albumin 4.3 g/dL (3.5-5.0); Alkaline Phosphatase 75 U/L (38-126); Anion Gap 13 mmol/L; Blood Urea Nitrogen 16 mg/dL (9-20); Calcium 9.6 mg/dL (8.4-10.2); Carbon Dioxide 22 mmol/L (22-30); Chloride 104 mmol/L (98-107); Glucose 201 mg/dL (74-99); Non-African American GFR(CKD) >90 (>60 ml/min/1.73 sqM); Potassium 4.1 mmol/L (3.5-5.1); Sodium 139 mmol/L (137-145); Total Protein 7.0 g/dL (6.3-8.2)
--- NOTE | 2025-03-31 20:03 | ED ---
Back Pain HPI - General Chief Complaint: Back Pain/Injury Stated Complaint: left lower back pain Time Seen by Provider: 03/31/25 17:20 Source: patient, RN notes reviewed Mode of arrival: ambulatory Limitations: no limitations - History of Present Illness Initial Comments: 44-year-old male presents emergency department chief complaint of left flank pain. Patient states that he has pain in his back states that it does radiate up he denies any shortness of breath no fevers or chills denies any lower extremity weakness or symptoms denies any bowel, bladder incontinence retention no saddle anesthesias. Denies trauma. No rashes. - Related Data Home Medications Medication Instructions Recorded Confirmed Atorvastatin Calcium [Lipitor] 10 mg PO HS 03/10/20 06/01/21 Escitalopram [Lexapro] 10 mg PO HS 03/10/20 06/01/21 Ascorbic Acid [Vitamin C] 500 mg PO DAILY 06/01/21 06/01/21 Budesonide-Formot 160-4.5 Mcg 2 puff INHALATION RT-BID 06/01/21 06/01/21 [Symbicort 160-4.5 Mcg Inhaler] Ergocalciferol [Vitamin D2 (1250 1,250 mcg PO Q7D 06/01/21 06/01/21 Mcg = 75975 Iu)] Insulin Glargine,Hum.rec.anlog 25 unit SQ HS 06/01/21 06/01/21 [Lantus Solostar Pen] Vitamin B Complex 1 cap PO DAILY 06/01/21 06/01/21 hydroCHLOROthiazide [Hydrodiuril] 25 mg PO DAILY 06/01/21 06/01/21 Previous Rx's Medication Instructions Recorded Metoprolol Tartrate [Lopressor] 50 mg PO BID #60 tab 07/24/17 Amoxicillin/Potassium Clav 1 tab PO Q12HR 5 Days #10 tab 09/29/20 [Augmentin 875-125 Tablet] Montelukast Sodium [Singulair] 10 mg PO HS 30 Days #30 tab 09/30/20 Acetaminophen Tab [Tylenol] 650 mg PO Q6H 10 Days #80 tab 06/01/21 Cyclobenzaprine [Flexeril] 10 mg PO TID PRN #15 tab 06/01/21 Ondansetron Odt [Zofran ODT] 4 mg PO Q8HR PRN #10 tab 06/04/24 valACYclovir HCL [Valtrex] 1,000 mg PO TID #30 tablet 01/06/25 dexAMETHasone [Decadron] 6 mg PO DAILY 5 Days #5 tablet 03/14/25 Cyclobenzaprine [Flexeril] 10 mg PO TID PRN #15 tab 03/31/25 Allergies Allergy/AdvReac Type Severity Reaction Status Date / Time aspirin Allergy Rapid Verified 03/13/25 23:04 Heart Rate ibuprofen [From Motrin] Allergy Anaphylaxis Verified 03/13/25 23:04 methylprednisolone Allergy Anaphylaxis Verified 03/13/25 23:04 [From Solu-Medrol] Review of Systems ROS Statement: Those systems with pertinent positive or pertinent negative responses have been documented in the HPI. ROS Other: All systems not noted in ROS Statement are negative. Past Medical History Past Medical History: Diabetes Mellitus, GERD/Reflux, Hyperlipidemia, Hypertension Additional Past Medical History / Comment(s): NIDDM type II-diagnosed 02/2020, seasonal allergies, cyst in L abdomin and sternum area. History of Any Multi-Drug Resistant Organisms: None Reported Additional Past Surgical History / Comment(s): EGD, bilateral myringotomy/tubes, nasal polypectomy/turbinate reduction, wisdom teeth extractions. Past Anesthesia/Blood Transfusion Reactions: No Reported Reaction Additional Past Anesthesia/Blood Transfusion Reaction / Comment(s): c/o dizziness when waking up. Past Psychological History: No Psychological Hx Reported Smoking Status: Current every day smoker, Vaper Past Alcohol Use History: Occasional Past Drug Use History: Marijuana - Past Family History Mother Family Medical History: No Reported History Additional Family Medical History / Comment(s): Mother is healthy Father Family Medical History: Coronary Artery Disease (CAD), Diabetes Mellitus, Myocardial Infarction (NV) Additional Family Medical History / Comment(s): Father had his first of three MIs at the age of 49 yrs. He has had multiple cardiac stents General Exam Limitations: no limitations General appearance: alert, in no apparent distress Head exam: Present: atraumatic, normocephalic, normal inspection Eye exam: Present: normal appearance, PERRL, EOMI. Absent: scleral icterus, conjunctival injection, periorbital swelling ENT exam: Present: normal exam, normal oropharynx, mucous membranes moist Neck exam: Present: normal inspection, full ROM. Absent: tenderness, meningismus, lymphadenopathy Respiratory exam: Present: normal lung sounds bilaterally. Absent: respiratory distress, wheezes, rales, rhonchi, stridor Cardiovascular Exam: Present: regular rate, normal rhythm, normal heart sounds. Absent: systolic murmur, diastolic murmur, rubs, gallop, clicks GI/Abdominal exam: Present: soft, normal bowel sounds. Absent: distended, tenderness, guarding, rebound, rigid Extremities exam: Present: normal inspection, full ROM, normal capillary refill. Absent: tenderness, pedal edema, joint swelling, calf tenderness Back exam: Present: full ROM, tenderness, paraspinal tenderness Course Vital Signs 03/31/25 17:29 Temperature 98.3 F Pulse Rate 95 Respiratory 16 Rate Blood Pressure 144/93 O2 Sat by Pulse 98 Oximetry Medical Decision Making - Medical Decision Making Was pt. sent in by a medical professional or institution (, PA, BRAILLE TRANSCRIBER, urgent care, hospital, or alf...) When possible be specific @ -No Did you speak to anyone other than the patient for history (EMS, parent, family, police, friend...)? What history was obtained from this source @ -No Did you review nursing and triage notes (agree or disagree)? Why? @ -I reviewed and agree with nursing and triage notes Were old charts reviewed (outside hosp., previous admission, EMS record, old EKG, old radiological studies, urgent care reports/EKG's, alf records)? Report findings @ -No old charts were reviewed Differential Diagnosis (chest pain, altered mental status, abdominal pain women, abdominal pain men, vaginal bleeding, weakness, fever, dyspnea, syncope, headache, dizziness, GI bleed, back pain, seizure, CVA, palpatations, mental health, musculoskeletal)? @ -Differential Back Pain: Strain, zoster, cauda equina syndrome, epidural abscess, vertebral osteomyelitis, discitis, fracture, subluxation, disc herniation, DJD, spinal stenosis, dissection, AAA, pancreatitis, peptic ulcer disease, pyelonephritis, kidney stone, this is not meant to be an all-inclusive list. EKG interpreted by me (3pts min.). @ -None X-rays interpreted by me (1pt min.). @ -None done CT interpreted by me (1pt min.). @ -CT abdomen pelvis showing no acute intra-abdominal process U/S interpreted by me (1pt. min.). @ -None done What testing was considered but not performed or refused? (CT, X-rays, U/S, labs)? Why? @ -None What meds were considered but not given or refused? Why? @ -None Did you discuss the management of the patient with other professionals (professionals i.e. , PA, BRAILLE TRANSCRIBER, lab, RT, psych nurse, home health care social worker, edger runner, teacher, submarine advisory team watch officer, correctional case manager)? Give summary @ -No Was smoking cessation discussed for >3mins.? @ -No Was critical care preformed (if so, how long)? @ -No Were there social determinants of health that impacted care today? How? (Homelessness, low income, unemployed, alcoholism, drug addiction, transportation, low edu. Level, literacy, decrease access to med. care, half-way, rehab)? @ -No Was there de-escalation of care discussed even if they declined (Discuss DNR or withdrawal of care, Hospice)? DNR status @ -No What co-morbidities impacted this encounter? (DM, HTN, Smoking, COPD, CAD, Cancer, CVA, ARF, Chemo, Hep., AIDS, mental health diagnosis, sleep apnea, morbid obesity)? @ -None Was patient admitted / discharged? Hospital course, mention meds given and route, prescriptions, significant lab abnormalities, going to OR and other pertinent info. @ -Discharge patient presented for back pain concerning for possible stone. CT is unremarkable laboratory studies unremarkable be discharged in stable condition with analgesics and muscle relaxers. Undiagnosed new problem with uncertain prognosis? @ -No Drug Therapy requiring intensive monitoring for toxicity (Heparin, Nitro, Insulin, Cardizem)? @ -No Were any procedures done? @ -No Diagnosis/symptom? @ -back pain Acute, or Chronic, or Acute on Chronic? @ -Acute Uncomplicated (without systemic symptoms) or Complicated (systemic symptoms)? @ -Complicated Side effects of treatment? @ -No Exacerbation, Progression, or Severe Exacerbation? @ -No Poses a threat to life or bodily function? How? (Chest pain, USA, NV, pneumonia, PE, COPD, DKA, ARF, appy, cholecystitis, CVA, Diverticulitis, Homicidal, Suicidal, threat to staff... and all critical care pts) @ -No - Lab Data Result diagrams: 03/31/25 17:43 03/31/25 17:43 Lab Results 03/31/25 03/31/25 Range/Units 17:43 17:43 WBC 6.73 (4.50-10.00) 10*3/uL RBC 4.87 (4.40-5.60) 10*6/uL Hgb 14.7 (13.0-17.0) g/dL Hct 43.8 (39.6-50.0) % MCV 89.9 (80.0-97.0) fL MCH 30.2 (27.0-32.0) pg MCHC 33.6 (32.0-37.0) g/dL Plt Count 186 (140-440) 10*3/uL MPV 9.7 (9.5-12.2) fL Immature Gran % (Auto) 0.3 % Neutrophils % 67.8 % Lymphocytes % 20.4 % Monocytes % 6.5 % Eosinophils % 4.3 % Basophils % 0.7 % Immature Gran # 0.02 (0.00-0.04) 10*3/uL Neutrophils # 4.56 (1.80-7.70) 10*3/uL Lymphocytes # 1.37 (0.90-5.00) 10*3/uL Monocytes # 0.44 (0.20-1.00) 10*3/uL Eosinophils # 0.29 (0.04-0.35) 10*3/uL Basophils # 0.05 (0.00-0.10) 10*3/uL Sodium 139 (137-145) mmol/L Potassium 4.1 (3.5-5.1) mmol/L Chloride 104 (98-107) mmol/L Carbon Dioxide 22 (22-30) mmol/L Anion Gap 13 mmol/L BUN 16 (9-20) mg/dL Creatinine 0.74 (0.66-1.25) mg/dL Est GFR (CKD-EPI)AfAm >90 (>60 ml/min/1.73 sqM) Est GFR (CKD-EPI)NonAf >90 (>60 ml/min/1.73 sqM) Glucose 201 H (74-99) mg/dL Calcium 9.6 (8.4-10.2) mg/dL Total Bilirubin 0.7 (0.2-1.3) mg/dL AST 103 H (17-59) U/L ALT 37 (4-49) U/L Alkaline Phosphatase 75 (38-126) U/L Total Protein 7.0 (6.3-8.2) g/dL Albumin 4.3 (3.5-5.0) g/dL Disposition Clinical Impression: Back pain Disposition: HOME SELF-CARE Condition: Stable Instructions (If sedation given, give patient instructions): Back Pain (ED) Additional Instructions: Please return to the Emergency Department if symptoms worsen or any other concerns. Prescriptions: Cyclobenzaprine [Flexeril] 10 mg PO TID PRN #15 tab PRN Reason: Muscle Spasm Is patient prescribed a controlled substance at d/c from ED?: No Referrals: None,Stated [Primary Care Provider] - 1-2 days Time of Disposition: 22:27
[2025-03-31] MEDS: ONDANSETRON 4 MG/2 ML VIAL IVP STA (21:42)
[2025-03-31] MEDS: HYDROmorphone 0.5 MG/0.5 ML SYRINGE IVP STA (21:44)
--- NOTE | 2025-03-31 22:02 | CT ---
EXAMINATION TYPE: CT abdomen pelvis wo con DATE OF EXAM: 03/31/2025 8:49 PM COMPARISON: None. CLINICAL INDICATION: Male, 44 years old with history of left flank pain, left flank pain since last n ight. no dysuria. pain rad from left flank to left shoulder TECHNIQUE: Axial images were obtained from above the diaphragm to the pubic rami in the axial plane a t 5 mm thick sections. Reconstructed images are reviewed on the computer in the coronal plane. CONTRAST: mL of . Study performed without Oral Contrast DLP: 553.4 mGycm, Automated exposure control for dose reduction was used. FINDINGS: Limited CT sections are obtained the lung bases. The lung bases are clear. CT ABDOMEN: Liver: Normal Spleen: Normal Pancreas: Normal Adrenal glands: The adrenal glands are normal. Gallbladder: Normal Kidneys: No masses are evident. No hydronephrosis is present. No cysts are present. No renal stone s evident. Aorta: Normal Inferior vena cava: Normal. CT PELVIS: Loops of bowel within the abdomen and pelvis are normal. Few scattered diverticuli are present witho ut evidence of acute diverticulitis. This study is without oral contrast limiting evaluation. Appendix: Normal as visualized. Urinary bladder: Decompressed limiting evaluation Genitourinary structures: Prostate appears unremarkable Osseous structures: No suspicious lytic or sclerotic lesions. IMPRESSION: 1. No suspicious abnormality account for left flank pain. [facility], , 03/31/2025 10:00 PM
[2025-03-31] MEDS: ACET/COD 300 MG/30 MG STARTER PACK 6 TAB BTL PO STA (22:48)
[2025-03-31 22:51] VITALS: BP 147/90; PULSE 75; RESP 18; TEMP 97.9
== END 2025-03-31 22:50 | disposition home or self-care (01) ==
LOC: EC 17:09
DX: M54.50 Low back pain, unspecified (principal); F17.290 Nicotine dependence, other tobacco product, uncomplicated; Z88.6 Allergy status to analgesic agent; Z88.8 Allergy status to other drugs, medicaments and biological substances
CPT/HCPCS: 93005; 80053; 85025; 74176; 99283; 96374; 96375; J2405; J1171; 36415